=== PATIENT | female | born 1950 | race Caucasian/White ===

== ENCOUNTER 2018-05-17 07:28 | Day surgery (SDC) | payer MEDICARE, BC ==
[2018-05-17] VITALS (8 sets, daily range): BP systolic 119–132; BP diastolic 70–84
[~2018-05-17] VITALS: Ht 162.6 cm; Wt 96.8 kg
[2018-05-17] MEDS ORDERED: diphenhydrAMINE 25mg capsule PO PRN (07:50)
[2018-05-17] MEDS ORDERED: sod bicarbonate 150mEq in D5W 1,150 ML IV ONE (07:50)
[2018-05-17] MEDS ORDERED: normal saline 1000ml 1,000 ML IV SCH (08:10)
[2018-05-17] MEDS ORDERED: LEVO125T PO (08:16)
[2018-05-17] MEDS ORDERED: VILA40TA PO (08:16)
[2018-05-17] MEDS ORDERED: BUDE10.2 INH (08:16)
[2018-05-17] MEDS ORDERED: CARV3.12 PO (08:16)
[2018-05-17] MEDS ORDERED: BUPR150T8 PO (08:16)
[2018-05-17] MEDS ORDERED: ALB0.5UD IH (08:16)
[2018-05-17] MEDS ORDERED: LIOT5TAB7 PO (08:16)
[2018-05-17] MEDS ORDERED: ARIP5TAB4 PO (08:16)
[2018-05-17] MEDS ORDERED: CLON-528 PO (08:16)
[2018-05-17] MEDS ORDERED: BENZ0.5T4 PO (08:16)
[2018-05-17] MEDS ORDERED: CLOB15CR4 TOP (08:16)
[2018-05-17] MEDS ORDERED: O2 NASALCANN (08:16)
[2018-05-17 08:26] LABS: ALBUMIN 3.3 G/DL (3.4-5.0); ANION GAP 8 (8-16); BLOOD UREA NITROGEN 17 MG/DL (7-18); BUN/CREATININE RATIO 14.7 (6.6-38.0); CALCIUM 9.3 MG/DL (8.5-10.1); CHLORIDE 105 MMOL/L (99-107); CREATININE 1.16 MG/DL (0.40-0.90); GLUCOSE 100 MG/DL (70-104); MAGNESIUM 1.9 MG/DL (1.5-2.4); POTASSIUM 4.1 MMOL/L (3.5-5.1); SODIUM 141 MMOL/L (135-145); TOTAL CARBON DIOXIDE 27.7 MMOL/L (24-32); eGFR 47 ML/MIN
[2018-05-17 08:36] LABS: BASOPHILS % (AUTO) 0.1 % (0-1); EOSINOPHILS # (AUTO) 0.1 X10'3 (0-0.9); HEMATOCRIT 44.5 % (35.0-45.0); HEMOGLOBIN 14.9 g/dl (12.0-16.0); LYMPHOCYTES # (AUTO) 0.4 X10'3 (1.1-4.8); LYMPHOCYTES % (AUTO) 9.1 % (21-51); MEAN CORPUSCULAR HGB CONC 33.5 % (33.0-36.5); MEAN CORPUSCULAR VOLUME 86.4 FL (78-98); MEAN PLATELET VOLUME 8.8 FL (7.4-10.4); MONOCYTES # (AUTO) 0.3 X10'3 (0-0.9); MONOCYTES % (AUTO) 6.9 % (2-12); NEUTROPHILS # (AUTO) 3.9 X10'3 (1.8-7.7); NEUTROPHILS % (AUTO) 80.9 % (42-75); PLATELET COUNT 147 X10'3 (140-440); RED BLOOD COUNT 5.15 X10'6 (4.20-5.60); WHITE BLOOD COUNT 4.9 X10'3 (4.5-11.0)
[2018-05-17 08:54] LABS: PROTHROMBIN TIME 10.4 SECONDS (9.0-12.0)
[2018-05-17] MEDS ORDERED: fentaNYL/PF 50MCG/1 ML 2ML syringe ONE (08:56)
[2018-05-17] MEDS ORDERED: cefazolin/dext.iso 2gm/50ml 50 ML IV ONE ×2 (08:56→09:32)
[2018-05-17] MEDS ORDERED: midazolam 2 mg/2 ml injection ONE ×2 (08:56→09:48)
[2018-05-17] MEDS ORDERED: lidocaine 1%/epinephrine 1:100,000 injection 50ml vial ONE (08:56)
[2018-05-17] MEDS ORDERED: vancomycin 1,000mg inj ONE (08:56)
[2018-05-17] MEDS ORDERED: clindamycin 600mg/D5W 50ml 50 ML IV ONE (09:00)
[2018-05-17] MEDS ORDERED: clindamycin-Cleocin 900mg/D5W 50 ML IV ONE (09:10)
== END 2018-05-17 13:00 | disposition home or self-care (01) ==
LOC: SSTAY O 07:28
PROVIDERS: ATTEND Internal Medicine Cardiovascular Disease
DX: I97.190 Other postprocedural cardiac functional disturbances following cardiac surgery (principal); I44.7 Left bundle-branch block, unspecified; Y83.9 Surgical procedure, unspecified as the cause of abnormal reaction of the patient, or of later complication, without mention of misadventure at the time of the procedure; Y82.9 Unspecified medical devices associated with adverse incidents; I42.9 Cardiomyopathy, unspecified; J42 Unspecified chronic bronchitis; F32.9 Major depressive disorder, single episode, unspecified; E03.9 Hypothyroidism, unspecified; F41.9 Anxiety disorder, unspecified; Z79.899 Other long term (current) drug therapy; Z95.0 Presence of cardiac pacemaker; Z98.890 Other specified postprocedural states
CPT/HCPCS: 33222; 36415; 80048; 83735; 85025; 85610; 99152; 99153; J0690; J2250; J3010; J3370; J3490; A4620; J7030

== ENCOUNTER 2018-12-09 09:25 | Emergency (ER) | payer MEDICARE, BC ==
[~2018-12-09] VITALS: Ht 162.6 cm; Wt 84.0 kg
[~2018-12-09 09:25] MED LIST: ALB0.5UD IH; ARIP5TAB4 PO; BENZ0.5T4 PO; BUDE10.2 INH; BUPR150T8 PO; CARV3.12 PO; CLOB15CR4 TOP; CLON-528 PO; LEVO125T PO; LIOT5TAB10 PO; O2 NASALCANN; VILA40TA PO
[2018-12-09 10:32] LABS: BASOPHILS % (AUTO) 0.5 % (0-1); EOSINOPHILS % (AUTO) 0.6 % (0-6); HEMATOCRIT 44.2 % (35.0-45.0); HEMOGLOBIN 14.6 g/dl (12.0-16.0); LYMPHOCYTES # (AUTO) 0.4 X10'3 (1.1-4.8); LYMPHOCYTES % (AUTO) 5.5 % (21-51); MEAN CORPUSCULAR HEMOGLOBIN 29.4 PG (27.0-31.0); MEAN CORPUSCULAR VOLUME 88.9 FL (78-98); MONOCYTES # (AUTO) 0.6 X10'3 (0-0.9); MONOCYTES % (AUTO) 8.8 % (2-12); NEUTROPHILS # (AUTO) 6.1 X10'3 (1.8-7.7); NEUTROPHILS % (AUTO) 84.6 % (42-75); PLATELET COUNT 145 X10'3 (140-440); RED BLOOD COUNT 4.97 X10'6 (4.20-5.60); WHITE BLOOD COUNT 7.2 X10'3 (4.5-11.0)
[2018-12-09 11:07] LABS: ALANINE AMINOTRANSFERASE 16 U/L (12-78); ALBUMIN 3.2 G/DL (3.4-5.0); ALBUMIN/GLOBULIN RATIO 0.8 (1.1-1.5); ALKALINE PHOSPHATASE 62 IU/L (46-116); ANION GAP 9 (8-16); ASPARTATE AMINO TRANSFERASE 13 U/L (10-37); BLOOD UREA NITROGEN 10 MG/DL (7-18); BUN/CREATININE RATIO 10.6 (6.6-38.0); CALCIUM 9.7 MG/DL (8.5-10.1); CHLORIDE 106 MMOL/L (99-107); CREATININE 0.94 MG/DL (0.40-0.90); GLUCOSE 119 MG/DL (70-104); POTASSIUM 3.9 MMOL/L (3.5-5.1); SODIUM 140 MMOL/L (135-145); TOTAL CARBON DIOXIDE 25.5 MMOL/L (24-32); TOTAL PROTEIN 7.1 G/DL (6.4-8.2); eGFR 59 ML/MIN
[2018-12-09 11:16] LABS: MAGNESIUM 1.8 MG/DL (1.5-2.4)
[2018-12-09 11:23] LABS: D-DIMER 0.24 MG/L FEU (0-0.50)
[2018-12-09 11:36] LABS: PARTIAL THROMBOPLASTIN TIME 33 SECONDS (22-32)
[2018-12-09] MEDS ORDERED: furosemide 10 MG/1 ML 10ml inj IV ONE (12:10)
--- NOTE | 2018-12-09 13:26 | NUR ---
relieving RN for lunch, pt is on commode, family at bedside
[2018-12-09] MEDS ORDERED: BUSP5TAB3 PO (13:33)
[2018-12-09] MEDS ORDERED: APIX5TAB3 PO (13:33)
[2018-12-09] MEDS ORDERED: BUPR75TA96 PO (13:40)
[2018-12-09] MEDS ORDERED: BUSP10TA11 PO (13:40)
[2018-12-09] MEDS ORDERED: CLOB50SO2 TOP (13:40)
[2018-12-09] MEDS ORDERED: FURO40TA4 PO (13:41)
[2018-12-09 13:57] VITALS: BP 138/75
== END 2018-12-09 14:00 | disposition home or self-care (01) ==
LOC: ER 09:26
DX: I50.9 Heart failure, unspecified (principal); F41.9 Anxiety disorder, unspecified; F32.9 Major depressive disorder, single episode, unspecified; D86.9 Sarcoidosis, unspecified; Z88.0 Allergy status to penicillin; Z79.899 Other long term (current) drug therapy
CPT/HCPCS: 36415; 71045; 80053; 83735; 83880; 84484; 85025; 85379; 85610; 85730; 93005; 96374; 99284; J1940

== ENCOUNTER 2018-12-13 07:40 | Day surgery (SDC) | payer MEDICARE, BC ==
[~2018-12-13] VITALS: Ht 162.6 cm; Wt 89.5 kg
[2018-12-13] VITALS (11 sets, daily range): BP systolic 96–114; BP diastolic 58–74
[~2018-12-13 07:40] MED LIST changes: +APIX5TAB3 PO; -BUPR150T8 PO; +BUPR75TA96 PO; +BUSP10TA11 PO; -CLOB15CR4 TOP; +CLOB50SO2 TOP; -CLON-528 PO; +FURO40TA4 PO; -O2 NASALCANN
[2018-12-13] MEDS ORDERED: VILA40TA PO (08:33)
[2018-12-13] MEDS ORDERED: BUPR150T8 PO (08:36)
[2018-12-13] MEDS ORDERED: ARIP5TAB4 PO (08:40)
[2018-12-13] MEDS ORDERED: BENZ0.5T4 PO (08:50)
[2018-12-13] MEDS ORDERED: LIOT5TAB10 PO (08:51)
[2018-12-13] MEDS ORDERED: BUDE10.22 INH (09:23)
[2018-12-13] MEDS ORDERED: ALB0.5UD IH (09:23)
[2018-12-13] MEDS ORDERED: CARV3.122 PO (09:24)
[2018-12-13] MEDS ORDERED: LEVO125T8 PO (09:25)
[2018-12-13] MEDS ORDERED: APIX5TAB3 PO (09:26)
--- NOTE | 2018-12-13 09:30 | NUR ---
PT SOB UPON OOB TO BATHROOM, DR FERGUSON AT BEDSIDE ORDERED LASIX TO GIVE, PT STATES WAS IN ER LAST WEEK WITH SEVERE SOB, DIURETICS WERE GIVEN. DR FERGUSON AWARE OF PT'S CONFUSION.
[2018-12-13] MEDS ORDERED: furosemide 20 MG/2 ML vial IV ONE (09:35)
[2018-12-13] MEDS ORDERED: MIDAZolam 5mg/ml 2ml vial IV ONE (09:45)
[2018-12-13] MEDS ORDERED: fentaNYL/PF 50MCG/1 ML 2ML syringe IV ONE (09:45)
--- NOTE | 2018-12-13 10:30 | NUR ---
PT BECAME SOB AND ANXIOUS DURING PIV START, BECAME AGGITATED AND SEEMED UNCLEAR AND SPEECH BECAME UNCLEAR. WORDS WERE JUMBLED, SPOUSE THINKS IT WAS HER ANXIETY/DEPRESSION.
--- NOTE | 2018-12-13 13:00 | NUR ---
PT AFTER CARDIOVERSION IS ALERT AND ORIENTED, SPEECH CLEAR AND APPROPRIATE ANSWERS TO QUESTIONS, DENIED SOB, 02 SATURATION STABLE
== END 2018-12-13 13:00 | disposition home or self-care (01) ==
LOC: MERGE 07:40 → SSTAY O 07:40
PROVIDERS: ATTEND Internal Medicine Cardiovascular Disease
DX: I48.92 Unspecified atrial flutter (principal); F32.9 Major depressive disorder, single episode, unspecified; E03.9 Hypothyroidism, unspecified; F41.9 Anxiety disorder, unspecified; Z98.890 Other specified postprocedural states; Z88.0 Allergy status to penicillin; Z79.899 Other long term (current) drug therapy; Z95.0 Presence of cardiac pacemaker; Z83.3 Family history of diabetes mellitus
CPT/HCPCS: 92960; 93005; J1940; J2250; J3010

== ENCOUNTER 2019-01-11 09:05 | Inpatient (IN) | payer MEDICARE, BC ==
[~2019-01-11] VITALS: Ht 162.6 cm; Wt 90.9 kg
[~2019-01-11 09:05] MED LIST changes: +BUDE10.22 INH; +BUPR150T8 PO; +CARV3.122 PO; +LEVO125T8 PO
[2019-01-11] MEDS ORDERED: furosemide 40mg/4ml inj IV ONE (09:15)
[2019-01-11 09:36] LABS: BASOPHILS % (AUTO) 0.4 % (0-1); EOSINOPHILS # (AUTO) 0.1 X10'3 (0-0.9); EOSINOPHILS % (AUTO) 1.6 % (0-6); HEMATOCRIT 43.8 % (35.0-45.0); HEMOGLOBIN 14.5 g/dl (12.0-16.0); LYMPHOCYTES # (AUTO) 0.4 X10'3 (1.1-4.8); LYMPHOCYTES % (AUTO) 4.5 % (21-51); MEAN CORPUSCULAR HEMOGLOBIN 29.2 PG (27.0-31.0); MEAN CORPUSCULAR HGB CONC 33.2 g/dL (33.0-36.5); MEAN PLATELET VOLUME 8.5 FL (7.4-10.4); MONOCYTES # (AUTO) 0.4 X10'3 (0-0.9); MONOCYTES % (AUTO) 4.7 % (2-12); NEUTROPHILS # (AUTO) 7.6 X10'3 (1.8-7.7); NEUTROPHILS % (AUTO) 88.8 % (42-75); PLATELET COUNT 168 X10'3 (140-440); RED BLOOD COUNT 4.97 X10'6 (4.20-5.60); WHITE BLOOD COUNT 8.5 X10'3 (4.5-11.0)
[2019-01-11 09:52] LABS: PARTIAL THROMBOPLASTIN TIME 30 SECONDS (22-32)
--- NOTE | 2019-01-11 09:52 | NUR ---
Pt up to bedside commode.
[2019-01-11 09:55] LABS: ALANINE AMINOTRANSFERASE 18 U/L (12-78); ALBUMIN 3.2 G/DL (3.4-5.0); ALBUMIN/GLOBULIN RATIO 0.7 (1.1-1.5); ALKALINE PHOSPHATASE 64 IU/L (46-116); ANION GAP 11 (8-16); ASPARTATE AMINO TRANSFERASE 20 U/L (10-37); BILIRUBIN,TOTAL 0.8 MG/DL (0.1-1.0); BLOOD UREA NITROGEN 13 MG/DL (7-18); BUN/CREATININE RATIO 13.1 (6.6-38.0); CALCIUM 9.2 MG/DL (8.5-10.1); CHLORIDE 104 MMOL/L (99-107); CREATININE 0.99 MG/DL (0.40-0.90); GLUCOSE 125 MG/DL (70-104); SODIUM 141 MMOL/L (135-145); TOTAL PROTEIN 7.5 G/DL (6.4-8.2); eGFR 56 ML/MIN
--- NOTE | 2019-01-11 09:56 | NUR ---
Pt placed back in bed, boosted, HOB up.
[2019-01-11] MEDS ORDERED: ALBU90AE INH (11:17)
[2019-01-11] MEDS ORDERED: FLEC100T2 PO (11:17)
[2019-01-11 12:26] LABS: D-DIMER 0.57 MG/L FEU (0-0.50)
[2019-01-11] MEDS: K and/or MAG REPLACEMENT MC SCH (12:30)
[2019-01-11] MEDS ORDERED: morphine 2 MG/ML inj. syringe IV PRN ×2 (12:30)
[2019-01-11] MEDS ORDERED: HYDROcodone/acetaminophen 5mg/325mg tablet PO PRN (12:30)
[2019-01-11] MEDS ORDERED: ALBUTEROL SULFATE INH PRN (12:30)
[2019-01-11] MEDS ORDERED: diphenhydrAMINE 25mg capsule PO PRN (12:30)
[2019-01-11] MEDS ORDERED: bisacodyl 10mg suppository rectal RC PRN (12:30)
[2019-01-11] MEDS ORDERED: HYDROcodone/acetaminophen 10/325mg tab PO PRN (12:30)
[2019-01-11] MEDS ORDERED: potassium Cl 20 mEq SR tablet PO PRN ×2 (12:30)
[2019-01-11] MEDS: furosemide 40mg/4ml inj IV SCH ×2 (12:30→20:06)
[2019-01-11] MEDS ORDERED: magnesium 2GM in 50ml NS 50 ML IV PRN (12:30)
[2019-01-11] MEDS ORDERED: magnesium 4gm in 100ml NS 100 ML IV PRN (12:30)
[2019-01-11] MEDS ORDERED: magnesium hydroxide 30ml (MOM) UD suspension PO PRN (12:30)
[2019-01-11] MEDS ORDERED: mag hydrox/Alum hydrox/simeth 30ml oral suspension PO PRN (12:30)
[2019-01-11] MEDS ORDERED: magnesium Cl slow-release 64mg tablet PO PRN (12:30)
[2019-01-11] MEDS ORDERED: acetaminophen 650mg rectal suppository RC PRN (12:30)
[2019-01-11] MEDS ORDERED: ondansetron/PF 4mg/2ml inj IV PRN (12:30)
[2019-01-11] MEDS ORDERED: acetaminophen 325mg tablet PO PRN ×2 (12:30)
[2019-01-11] MEDS ORDERED: potassium CL 10mEq/100ml bag 100 ML IV PRN ×2 (12:30)
[2019-01-11] MEDS ORDERED: normal saline 1000ml 1,000 ML IV SCH (12:30)
[2019-01-11] MEDS ORDERED: iohexol 350MG/ML 100ml bottle IV ONE (12:38)
[2019-01-11] MEDS ORDERED: albuterol 2.5 MG/3 ML nebule NEB PRN (12:45)
[2019-01-11] MEDS ORDERED: BUSPIRONE HCL PO SCH (13:00)
--- NOTE | 2019-01-11 13:10 | NUR ---
called pharmacy spoke to Vicente,instructed RN to skip 1230 lasix dose since med was given 3 hours ago.
--- NOTE | 2019-01-11 13:16 | NUR ---
BREAK NOTE:PATIENT BACK FROM CT.
[2019-01-11] MEDS: levoFLOXACIN-Levaquin 750MG/D5 150 ML IV SCH (13:21)
[2019-01-11 13:40] LABS: CLARITY,URINE CLEAR (Clear); COLOR,URINE YELLOW (Yellow); GLUCOSE, URINE NEGATIVE (Neg); KETONES,URINE NEGATIVE (Neg); LEUKOCYTE ESTERASE ,URINE SMALL (Neg); NITRITES, URINE NEGATIVE (Neg); OCCULT BLOOD,URINE NEGATIVE (Neg); PH,URINE 5.5 (4.8-8.0); PROTEIN,URINE NEGATIVE (Neg); UROBILINOGEN,URINE 0.2 E.U/dL (0.2-1.0)
[2019-01-11 13:45] LABS: UA COLLECTION TYPE CLN CATCH MIDSTREAM
[2019-01-11 13:46] LABS: BACTERIA,URINE NONE SEEN /HPF (Neg); MUCUS STRANDS NONE SEEN /LPF (Neg); RBC,URINE NONE SEEN /HPF (0-2); SQUAMOUS EPITHELIAL CELL,UR FEW /LPF (FEW); WBC,URINE 0-4 /HPF (0-4)
--- NOTE | 2019-01-11 14:00 | NUR ---
Patient in room MED 309. I have received report from DAYNE Gale and had the opportunity to ask questions and assume patient care.
[2019-01-11 14:13] LABS: HEMOGLOBIN A1C 5.2 % (4.5-6.2)
[2019-01-11 14:30] VITALS: BP 143/81
[2019-01-11] MEDS: busPIRone 5mg tablet PO SCH ×2 (14:36→20:06)
[2019-01-11] MEDS: ipratropium/albuterol 3ml nebule NEB SCH ×3 (14:41→22:36)
[2019-01-11] MEDS: albuterol 2.5 MG/3 ML nebule NEB SCH ×2 (14:41→21:00)
[2019-01-11] MEDS ORDERED: methylPREDNISolone sod succ 125mg/2ml vial IV ONE (16:25)
--- NOTE | 2019-01-11 18:03 | NUR ---
Problems reprioritized. Patient report given, questions answered & plan of care reviewed with Tracy OSCAR.
[2019-01-11 18:32] VITALS: BP 128/79
--- NOTE | 2019-01-11 19:30 | NUR ---
ABG ORDERED IN ED. PAGED RT TO GET THAT COMPLETED.
[2019-01-11] MEDS ORDERED: non-formulary drug (Budesonide/Formoterol Fumarate (Symbicort 160-4.5 Mcg Inhaler) 2 PUFFS INH SCH (20:00)
[2019-01-11] MEDS ORDERED: benztropine 1mg tablet PO SCH (20:00)
[2019-01-11] MEDS ORDERED: non-formulary drug (Clobetasol Propionate 1 APPLIC) TOP SCH (20:00)
[2019-01-11] MEDS: CLOBETASOL PROPIONATE TP SCH (20:00)
[2019-01-11] MEDS ORDERED: non-formulary drug (Flecainide Acetate 1 TAB) PO SCH (20:00)
[2019-01-11] MEDS ORDERED: BENZTROPINE MESYLATE PO SCH (20:00)
[2019-01-11] MEDS: lactobacillus rhamnosus 10,000 MMU CELLS/CAPSULE PO SCH ×2 (20:00→20:08)
[2019-01-11] MEDS ORDERED: clobetasol 0.05% cream 30gm TP SCH (20:00)
[2019-01-11] MEDS: carVEDilol 3.125mg tablet PO SCH (20:06)
[2019-01-11] MEDS: buPROPion 75mg tablet PO SCH (20:06)
[2019-01-11] MEDS: apixaban 5mg tablet PO SCH (20:06)
[2019-01-11] MEDS: flecainide 50mg tablet PO SCH (20:07)
[2019-01-11] MEDS ORDERED: temazepam 15mg capsule PO PRN (21:00)
--- NOTE | 2019-01-11 21:31 | NUR ---
PAGED RT REGARDING ABG. AWAITING CALL BACK.
[2019-01-11 22:00] VITALS: BP 130/70
[2019-01-11] MEDS: budesonide 0.5mg/2ml UD nebule IH SCH (22:35)
--- NOTE | 2019-01-11 22:45 | NUR ---
Dr. Haines Notified r/t crackles right lower lobe, SOB at rest, respiration 30 bpm noted. Clarified IV fluids and lab orders. NS @50 mls and 0930 ABG order. new orders noted. Discontinue IV fluid NS, and ok to complete 0930 ABG. respiratory therapist notified r/t pending ABG. will continue to monitor for SOB, respiration.
[2019-01-11] MEDS: methylPREDNISolone sod succ 125mg/2ml vial IV SCH (23:02)
[2019-01-11 23:25] LABS: ABG HCO3 28.9 mmol/L (22.0-26.0); ABG OXYGEN SATURATION 93.4 % (95-98); ABG PCO2 (T) 39.3 mmHg (35.0-45.0); ABG PH (T) 7.483 (7.350-7.450); ABG PO2 (T) 58.9 mmHg (83-108); ALLEN'S TEST Positive; FCOHb 0.3 % (0.5-1.5); FLOW 2 L/min; FMetHb 0.2 % (0.3-1.12); FO2Hb 92.9 % (94-100); PATIENT TEMPERATURE 36.5; TOTAL HEMOGLOBIN 15.1 G/dl (12.0-16.0)
[2019-01-12] MEDS: ipratropium/albuterol 3ml nebule NEB SCH ×6 (02:26→22:17)
[2019-01-12] MEDS: albuterol 2.5 MG/3 ML nebule NEB SCH ×2 (02:31→08:25)
--- NOTE | 2019-01-12 04:39 | NUR ---
Orientee documentation: I have reviewed and agree with all interventions, assessments performed and documented by Tracy OSCAR
[2019-01-12] MEDS: methylPREDNISolone sod succ 125mg/2ml vial IV SCH ×4 (04:51→20:08)
[2019-01-12 05:10] LABS: BASOPHILS % (AUTO) 0 % (0-1); EOSINOPHILS % (AUTO) 0 % (0-6); HEMATOCRIT 42.7 % (35.0-45.0); HEMOGLOBIN 14.4 g/dl (12.0-16.0); LYMPHOCYTES # (AUTO) 0.2 X10'3 (1.1-4.8); LYMPHOCYTES % (AUTO) 5.1 % (21-51); MEAN CORPUSCULAR HEMOGLOBIN 29.4 PG (27.0-31.0); MEAN CORPUSCULAR HGB CONC 33.7 g/dL (33.0-36.5); MEAN CORPUSCULAR VOLUME 87.2 FL (78-98); MEAN PLATELET VOLUME 8.7 FL (7.4-10.4); MONOCYTES # (AUTO) 0.1 X10'3 (0-0.9); MONOCYTES % (AUTO) 1.9 % (2-12); NEUTROPHILS # (AUTO) 3.2 X10'3 (1.8-7.7); PLATELET COUNT 151 X10'3 (140-440); RED BLOOD COUNT 4.89 X10'6 (4.20-5.60); RED CELL DISTRIBUTION WIDTH 13.7 % (11.5-14.5); WHITE BLOOD COUNT 3.4 X10'3 (4.5-11.0)
--- NOTE | 2019-01-12 05:37 | NUR ---
pt diuresis removed 1.8L, pt weaned to 2L/ nc. ABG completed. Incentive spirometer x6/hr while awake.
[2019-01-12 05:39] LABS: ALANINE AMINOTRANSFERASE 17 U/L (12-78); ALBUMIN 3.1 G/DL (3.4-5.0); ALBUMIN/GLOBULIN RATIO 0.7 (1.1-1.5); ALKALINE PHOSPHATASE 66 IU/L (46-116); ANION GAP 11 (8-16); ASPARTATE AMINO TRANSFERASE 13 U/L (10-37); BILIRUBIN,TOTAL 0.6 MG/DL (0.1-1.0); BLOOD UREA NITROGEN 15 MG/DL (7-18); CALCIUM 9.5 MG/DL (8.5-10.1); CHLORIDE 102 MMOL/L (99-107); CHOL/HDL RATIO 3.4 (0.00-4.99); CHOLESTEROL 190 MG/DL (0-200); GLUCOSE 151 MG/DL (70-104); HDL CHOLESTEROL 56 MG/DL (35-60); LDL CHOLESTEROL 127 MG/DL (50-100); PHOSPHORUS 2.8 MG/DL (2.3-4.5); POTASSIUM 3.6 MMOL/L (3.5-5.1); SODIUM 140 MMOL/L (135-145); TOTAL CARBON DIOXIDE 27.2 MMOL/L (24-32); TOTAL PROTEIN 7.4 G/DL (6.4-8.2); TRIGLYCERIDES 53 MG/DL (20-135); eGFR 55 ML/MIN
--- NOTE | 2019-01-12 06:10 | NUR ---
Patient in room MED 309. I have received report from DAYNE Sheehan and DAYNE Jeffers and had the opportunity to ask questions and assume patient care.
[2019-01-12] MEDS: budesonide 0.5mg/2ml UD nebule IH SCH ×2 (06:49→18:44)
[2019-01-12 07:00] VITALS: BP 126/68
[2019-01-12] MEDS: CLOBETASOL PROPIONATE TP SCH ×2 (08:00→20:00)
[2019-01-12] MEDS ORDERED: VILAZODONE HYDROCHLORIDE PO SCH (08:00)
[2019-01-12] MEDS: K and/or MAG REPLACEMENT MC SCH (08:00)
[2019-01-12] MEDS: furosemide 40mg/4ml inj IV SCH ×2 (08:28→20:08)
[2019-01-12] MEDS: benztropine 1mg tablet PO SCH ×2 (08:33→20:09)
[2019-01-12] MEDS: aripiprazole 5mg tablet PO SCH (08:33)
[2019-01-12] MEDS: levoTHYROXINE 125mcg tablet PO SCH (08:34)
[2019-01-12] MEDS: busPIRone 5mg tablet PO SCH ×3 (08:34→20:10)
[2019-01-12] MEDS: apixaban 5mg tablet PO SCH ×2 (08:34→20:09)
[2019-01-12] MEDS: carVEDilol 3.125mg tablet PO SCH ×2 (08:34→20:09)
[2019-01-12] MEDS: lactobacillus rhamnosus 10,000 MMU CELLS/CAPSULE PO SCH (08:35)
[2019-01-12] MEDS: buPROPion 75mg tablet PO SCH ×2 (08:36→20:10)
[2019-01-12] MEDS: flecainide 50mg tablet PO SCH ×2 (08:37→20:09)
[2019-01-12] MEDS: levoFLOXACIN-Levaquin 750MG/D5 150 ML IV SCH (08:38)
--- NOTE | 2019-01-12 08:40 | NUR ---
Patient reported feeling "itchy" on bilateral hands. Assessment performed, patient had developed a rash on bilateral hands, chest and partially on face. Benadryl 25mg PRN administered. Medication list reconciled with patient and spouse. Probiotic is the only oral medication that is new to patient. Held medication and notified pharmacy. Addendum: 01/12/19 at 1159 by Anju Luis RN No s/s of distress.
[2019-01-12] MEDS: liothyronine sod 5mcg tablet PO SCH (09:15)
--- NOTE | 2019-01-12 09:53 | NUR ---
Patient's rash is gone. Will continue to monitor.
[2019-01-12] MEDS ORDERED: pneumococcal 23-VAL P-sac vacc 25 mcg/0.5ml vial IMVAC ONE (10:00)
[2019-01-12 10:20] VITALS: BP 126/68
--- NOTE | 2019-01-12 10:32 | NUR ---
Malnutrition consult: Pt admit w/ COPD/CHF exacerbations, UTI, possible aspiration PNA, and CT shows liver cirrhosis per MD note. PT has no weakness, no significant edema, PO 50-75% first meals and does not meet malnutrition criteria at this time. SP BSS pending. Will continue to monitor. Addendum: 01/12/19 at [address] Amended: Links added.
[2019-01-12 11:00] VITALS: BP 130/81
--- NOTE | 2019-01-12 14:14 | NUR ---
Spoke with TIANNA Ruiz regarding patients request for discharge for tomorrow with home health: PT/OT/Nursing.
[2019-01-12 15:00] VITALS: BP 151/80
--- NOTE | 2019-01-12 15:18 | NUR ---
Per chelsea Hu to discontinue Routine Proventil Q6H Neb. Respiratory notified.
[2019-01-12 18:00] VITALS: BP 131/82
--- NOTE | 2019-01-12 18:15 | NUR ---
Patient in room MED 309. I have received report from Radha Rene RN and had the opportunity to ask questions and assume patient care.
[2019-01-12 22:00] VITALS: BP 127/84
[2019-01-13 02:00] VITALS: BP 131/82
[2019-01-13] MEDS: methylPREDNISolone sod succ 125mg/2ml vial IV SCH ×2 (02:14→08:20)
--- NOTE | 2019-01-13 02:15 | NUR ---
PATIENT STATED WHEN SHE SAT ON THE COMMODE SHE FELT A PINCH ON HER BACKSIDE. BUTTOCK REDDENED BUT BLANCHABLE. A COUPLE AREAS ON THE BACK OF THE UPPER LEGS AND BUTT THAT HAD SKIN TEARS. FOAM DRESSING APPLIED. WILL CONTINUE TO MONITOR AND ENCOURAGED PATIENT TO TURN FREQUENTLY.
[2019-01-13] MEDS: ipratropium/albuterol 3ml nebule NEB SCH ×3 (02:29→12:25)
[2019-01-13 05:26] LABS: BASOPHILS % (AUTO) 0.1 % (0-1); EOSINOPHILS % (AUTO) 0 % (0-6); HEMOGLOBIN 14.2 g/dl (12.0-16.0); LYMPHOCYTES # (AUTO) 0.2 X10'3 (1.1-4.8); LYMPHOCYTES % (AUTO) 3.2 % (21-51); MEAN CORPUSCULAR HEMOGLOBIN 29.6 PG (27.0-31.0); MEAN CORPUSCULAR HGB CONC 33.8 g/dL (33.0-36.5); MEAN CORPUSCULAR VOLUME 87.6 FL (78-98); MEAN PLATELET VOLUME 8.9 FL (7.4-10.4); MONOCYTES # (AUTO) 0.3 X10'3 (0-0.9); NEUTROPHILS # (AUTO) 5.9 X10'3 (1.8-7.7); NEUTROPHILS % (AUTO) 92.7 % (42-75); PLATELET COUNT 166 X10'3 (140-440); RED BLOOD COUNT 4.79 X10'6 (4.20-5.60); RED CELL DISTRIBUTION WIDTH 14.1 % (11.5-14.5); WHITE BLOOD COUNT 6.4 X10'3 (4.5-11.0)
[2019-01-13 05:37] LABS: ALANINE AMINOTRANSFERASE 16 U/L (12-78); ALBUMIN 3.1 G/DL (3.4-5.0); ALBUMIN/GLOBULIN RATIO 0.8 (1.1-1.5); ALKALINE PHOSPHATASE 56 IU/L (46-116); ANION GAP 10 (8-16); ASPARTATE AMINO TRANSFERASE 19 U/L (10-37); BILIRUBIN,TOTAL 0.6 MG/DL (0.1-1.0); BLOOD UREA NITROGEN 23 MG/DL (7-18); BUN/CREATININE RATIO 18.3 (6.6-38.0); CALCIUM 9.4 MG/DL (8.5-10.1); CHLORIDE 101 MMOL/L (99-107); CREATININE 1.26 MG/DL (0.40-0.90); GLUCOSE 146 MG/DL (70-104); PHOSPHORUS 3.5 MG/DL (2.3-4.5); POTASSIUM 3.5 MMOL/L (3.5-5.1); SODIUM 140 MMOL/L (135-145); TOTAL CARBON DIOXIDE 29.2 MMOL/L (24-32); TOTAL PROTEIN 7.1 G/DL (6.4-8.2); eGFR 42 ML/MIN
[2019-01-13 06:00] VITALS: BP 130/80
--- NOTE | 2019-01-13 06:14 | NUR ---
Problems reprioritized. Patient report given, questions answered & plan of care reviewed with DAYNE Moya.
--- NOTE | 2019-01-13 06:25 | NUR ---
Patient in room MED 309. I have received report from DAYNE Prince and had the opportunity to ask questions and assume patient care.
[2019-01-13] MEDS: K and/or MAG REPLACEMENT MC SCH (08:00)
[2019-01-13] MEDS: CLOBETASOL PROPIONATE TP SCH (08:00)
[2019-01-13] MEDS ORDERED: atorvastatin 20mg tablet PO SCH (08:00)
[2019-01-13] MEDS: furosemide 40mg/4ml inj IV SCH (08:20)
[2019-01-13] MEDS: benztropine 1mg tablet PO SCH (08:21)
[2019-01-13] MEDS: levoTHYROXINE 125mcg tablet PO SCH (08:25)
[2019-01-13] MEDS: carVEDilol 3.125mg tablet PO SCH (08:25)
[2019-01-13] MEDS: aripiprazole 5mg tablet PO SCH (08:25)
[2019-01-13] MEDS: buPROPion 75mg tablet PO SCH (08:25)
[2019-01-13] MEDS: apixaban 5mg tablet PO SCH (08:25)
[2019-01-13] MEDS: busPIRone 5mg tablet PO SCH (08:25)
[2019-01-13] MEDS: liothyronine sod 5mcg tablet PO SCH (08:26)
[2019-01-13] MEDS: flecainide 50mg tablet PO SCH (08:26)
[2019-01-13] MEDS: levoFLOXACIN-Levaquin 750MG/D5 150 ML IV SCH (08:28)
[2019-01-13] MEDS: budesonide 0.5mg/2ml UD nebule IH SCH (08:43)
[2019-01-13 11:00] VITALS: BP 125/80
[2019-01-13] MEDS ORDERED: FURO-150 PO (11:33)
[2019-01-13] MEDS ORDERED: ATOR20TA66 PO (11:33)
[2019-01-13] MEDS ORDERED: POTA10TA36 PO (11:33)
[2019-01-13] MEDS ORDERED: PRED10TA23 PO (11:33)
[2019-01-13] MEDS ORDERED: LEVO500T89 PO (11:33)
--- NOTE | 2019-01-13 12:57 | NUR ---
Medications called into [facility] in [place].
--- NOTE | 2019-01-13 13:12 | NUR ---
pt. discharged from facility at 1310. pt. was wheeled down by staff to private vehicle. pt. picked her up. all paperwork was explained, understood and signed. pt. IV was d/c intact. meds were called into [facility] in [place]. pt. left with all belonging. Addendum: 01/13/19 at 1317 by Darline Cheatham RN wound photos were taken on 01/12/19 at 1900. no new photos taken on discharge.
--- NOTE | 2019-01-13 13:24 | NUR ---
Orienteer documentation: I have reviewed and agree with all interventions, assessments performed and documented by Darline OSCAR.
--- NOTE | 2019-01-13 15:55 | NUR ---
WOC saw pt around 1130 and examined redness noted around sacrum. Area is blanchable bright red in color, most likely from moisture damage more so than pressure. Applied calazime cream and covered with optifoam.
[2019-01-14 11:10] LABS: HBSAG SCREEN Negative (Negative); HEPATITIS C ANTIBODY <0.1 s/co ratio (0.0-0.9)
== END 2019-01-13 13:10 | disposition home health service (06) | DRG 189 ==
LOC: ER 09:06 → MED 3N 14:07
PROVIDERS: ADMIT Family Medicine; ATTEND Family Medicine
PROC: B32T1ZZ Computerized Tomography (CT Scan) of Left Pulmonary Artery using Low Osmolar Contrast (ICD-10-PCS; principal; 2019-01-11)
PROC: B3201ZZ Computerized Tomography (CT Scan) of Thoracic Aorta using Low Osmolar Contrast (ICD-10-PCS; 2019-01-11)
PROC: B32S1ZZ Computerized Tomography (CT Scan) of Right Pulmonary Artery using Low Osmolar Contrast (ICD-10-PCS; 2019-01-11)
DX: J96.01 Acute respiratory failure with hypoxia (principal); I50.33 Acute on chronic diastolic (congestive) heart failure; J69.0 Pneumonitis due to inhalation of food and vomit; N39.0 Urinary tract infection, site not specified; J44.1 Chronic obstructive pulmonary disease with (acute) exacerbation; E03.9 Hypothyroidism, unspecified; I27.81 Cor pulmonale (chronic); I48.91 Unspecified atrial fibrillation; I73.00 Raynaud's syndrome without gangrene; K74.60 Unspecified cirrhosis of liver; I50.810 Right heart failure, unspecified; F32.9 Major depressive disorder, single episode, unspecified; F41.9 Anxiety disorder, unspecified; R91.1 Solitary pulmonary nodule; Z88.0 Allergy status to penicillin; Z88.8 Allergy status to other drugs, medicaments and biological substances; Z91.018 Allergy to other foods; Z79.899 Other long term (current) drug therapy; Z79.890 Hormone replacement therapy; Z79.01 Long term (current) use of anticoagulants; Z95.0 Presence of cardiac pacemaker; Z99.81 Dependence on supplemental oxygen
CPT/HCPCS: 36415; 36600; 71045; 71275; 76700; 80053; 80061; 81001; 82803; 83036; 83735; 83880; 84100; 84443; 84484; 85018; 85025; 85379; 85610; 85730; 86706; 86803; 87081; 87088; 87340; 92508; 92616; 93005; 93306; 94640; 94760; 96361; 96374; 97162; 99285; G0378; J1940; J1956; J2930; J7030; J7626; Q0163; Q9967

== ENCOUNTER 2019-07-19 18:54 | Inpatient (IN) | payer MEDICARE, BC ==
[~2019-07-19] VITALS: Ht 160 cm; Wt 90.0 kg
[~2019-07-19 18:54] MED LIST changes: -ALB0.5UD IH; +ALBU90AE INH; +ARIP5TAB14 PO; -ARIP5TAB4 PO; +ATOR20TA66 PO; -BUDE10.22 INH; -BUPR150T8 PO; -CARV3.12 PO; +FLEC100T2 PO; -FURO40TA4 PO; -LEVO125T PO; +POTA10TA36 PO; +etomidate 2mg/ml inj. ONE; +rocuronium bromide 100mg/10ml (10mg/ml) injection IV ONE
[2019-07-19] MEDS ORDERED: methylPREDNISolone sod succ 125mg/2ml vial IV ONE (19:00)
[2019-07-19] MEDS ORDERED: furosemide 10 MG/1 ML 10ml inj IV ONE (19:00)
[2019-07-19] MEDS ORDERED: furosemide 40mg/4ml inj IV ONE (19:00)
[2019-07-19 19:05] LABS: ABG BASE EXCESS -6.1 mmol/L (-2.0-3.0); ABG HCO3 22.4 mmol/L (22.0-26.0); ABG OXYGEN SATURATION 99.1 % (95-98); ABG PCO2 (T) 54.6 mmHg (35.0-45.0); ABG PH (T) 7.226 (7.350-7.450); ABG PO2 (T) 213.6 mmHg (83-108); ALLEN'S TEST POSITIVE; FCOHb 0.4 % (0.5-1.5); FLOW 15 L/min; FMetHb 0.2 % (0.3-1.12); FO2Hb 98.5 % (94-100); PATIENT TEMPERATURE 36.3; TOTAL HEMOGLOBIN 14.7 G/dl (12.0-16.0)
[2019-07-19] MEDS ORDERED: etomidate 2mg/ml inj. IV ONE (19:10)
[2019-07-19] MEDS ORDERED: rocuronium 10mg/ml inj IV ONE (19:10)
--- NOTE | 2019-07-19 19:15 | NUR ---
MD Mascorro at bedside re-evaluating the pt. Verbal order given to prepare for RSI, 20mg etomidate and 80mg rocuronium ordered.
[2019-07-19 19:21] LABS: BASOPHILS # (AUTO) 0.1 X10'3 (0-0.2); BASOPHILS % (AUTO) 0.6 % (0-1); EOSINOPHILS # (AUTO) 0.2 X10'3 (0-0.9); EOSINOPHILS % (AUTO) 1.9 % (0-6); HEMATOCRIT 44.4 % (35.0-45.0); HEMOGLOBIN 14.3 g/dl (12.0-16.0); LYMPHOCYTES # (AUTO) 1.3 X10'3 (1.1-4.8); LYMPHOCYTES % (AUTO) 13.4 % (21-51); MEAN CORPUSCULAR HEMOGLOBIN 27.8 PG (27.0-31.0); MEAN CORPUSCULAR HGB CONC 32.2 g/dL (33.0-36.5); MEAN CORPUSCULAR VOLUME 86.2 FL (78-98); MEAN PLATELET VOLUME 8.4 FL (7.4-10.4); MONOCYTES # (AUTO) 0.6 X10'3 (0-0.9); MONOCYTES % (AUTO) 5.8 % (2-12); NEUTROPHILS # (AUTO) 7.6 X10'3 (1.8-7.7); NEUTROPHILS % (AUTO) 78.3 % (42-75); PLATELET COUNT 210 X10'3 (140-440); RED BLOOD COUNT 5.15 X10'6 (4.20-5.60); RED CELL DISTRIBUTION WIDTH 14.6 % (11.5-14.5); WHITE BLOOD COUNT 9.7 X10'3 (4.5-11.0)
[2019-07-19 19:32] LABS: PARTIAL THROMBOPLASTIN TIME 26 SECONDS (22-32)
[2019-07-19 19:47] LABS: ALANINE AMINOTRANSFERASE 32 U/L (12-78); ALBUMIN 3.4 G/DL (3.4-5.0); ALBUMIN/GLOBULIN RATIO 0.9 (1.1-1.5); ALKALINE PHOSPHATASE 101 IU/L (46-116); ANION GAP 6 (8-16); ASPARTATE AMINO TRANSFERASE 33 U/L (10-37); BILIRUBIN,TOTAL 0.4 MG/DL (0.1-1.0); BLOOD UREA NITROGEN 18 MG/DL (7-18); BUN/CREATININE RATIO 13.8 (6.6-38.0); CALCIUM 9.7 MG/DL (8.5-10.1); CHLORIDE 106 MMOL/L (99-107); GLUCOSE 183 MG/DL (70-104); POTASSIUM 5.3 MMOL/L (3.5-5.1); SODIUM 140 MMOL/L (135-145); TOTAL CARBON DIOXIDE 28.5 MMOL/L (24-32); TOTAL PROTEIN 7.1 G/DL (6.4-8.2); eGFR 41 ML/MIN
[2019-07-19] MEDS ORDERED: MAGN400C PO (19:56)
[2019-07-19] MEDS ORDERED: FURO20TA4 PO (19:56)
[2019-07-19 20:01] LABS: ABG HCO3 23.6 mmol/L (22.0-26.0); ABG OXYGEN SATURATION 98.3 % (95-98); ABG PCO2 (T) 44.4 mmHg (35.0-45.0); ABG PH (T) 7.346 (7.350-7.450); ABG PO2 (T) 125.5 mmHg (83-108); ALLEN'S TEST POSITIVE; FCOHb 0.6 % (0.5-1.5); FMetHb 0.3 % (0.3-1.12); FO2Hb 97.4 % (94-100); PATIENT TEMPERATURE 37.4; PEEP 5 cm H2O; RESPIRATORY RATE 18 b/min; TIDAL VOLUME 450 mL; TOTAL HEMOGLOBIN 14.5 G/dl (12.0-16.0)
[2019-07-19] MEDS: midazolam 100mg in NS 100ml 100 ML IV PRN (20:09)
[2019-07-19] MEDS: FENTANYL-0.9 % NACL/PF 100 ML IV PRN (20:10)
--- NOTE | 2019-07-19 20:15 | NUR ---
Patient's notified of patient's condition by MD Mascorro. requested to be called tomorrow regarding the patient's status.
[2019-07-19] MEDS ORDERED: acetaminophen 325mg tablet PO PRN ×2 (20:40)
[2019-07-19] MEDS ORDERED: midazolam 100mg in NS 100ml 100 ML IV PRN (20:40)
[2019-07-19] MEDS ORDERED: LIDOcaine 2% 10ml TOPICAL JELLY (Urojet) TP ONE (20:40)
[2019-07-19] MEDS ORDERED: morphine 4 MG/ML inj SYRINge IV PRN (20:40)
[2019-07-19] MEDS ORDERED: acetaminophen 650mg rectal suppository RC PRN (20:40)
[2019-07-19] MEDS: K, MAG and/or Phos replacement - Verify level? MC SCH (20:40)
[2019-07-19] MEDS ORDERED: potassium CL 10mEq/100ml bag 100 ML IV PRN (20:40)
[2019-07-19] MEDS ORDERED: potassium Cl 20 mEq SR tablet PO PRN (20:40)
[2019-07-19] MEDS ORDERED: FENTANYL-0.9 % NACL/PF 100 ML IV PRN (20:40)
[2019-07-19] MEDS ORDERED: magnesium hydroxide 30ml (MOM) UD suspension PO PRN (20:40)
[2019-07-19] MEDS ORDERED: ondansetron/PF 4mg/2ml inj IV PRN (20:40)
[2019-07-19] MEDS ORDERED: morphine 2 MG/ML inj. syringe IV PRN (20:40)
--- NOTE | 2019-07-19 20:45 | NUR ---
Intesivist Ton La at bedside assessing the pt, no new orders at this time.
[2019-07-19] MEDS ORDERED: ipratropium/albuterol 3ml nebule NEB PRN (20:55)
[2019-07-19] MEDS ORDERED: albuterol 2.5 MG/3 ML nebule NEB PRN (20:55)
[2019-07-19] MEDS: busPIRone 5mg tablet PO SCH (21:00)
[2019-07-19] MEDS: normal saline 1000ml 1,000 ML IV SCH (21:02)
[2019-07-19 22:20] VITALS: BP 106/59
[2019-07-19 23:00] VITALS: BP 85/58
[2019-07-20] VITALS (24 sets, daily range): BP systolic 89–111; BP diastolic 52–69
[2019-07-20 01:14] LABS: BASOPHILS % (AUTO) 0.1 % (0-1); EOSINOPHILS % (AUTO) 0.2 % (0-6); HEMATOCRIT 41.5 % (35.0-45.0); HEMOGLOBIN 13.5 g/dl (12.0-16.0); LYMPHOCYTES # (AUTO) 0.3 X10'3 (1.1-4.8); LYMPHOCYTES % (AUTO) 3.8 % (21-51); MEAN CORPUSCULAR HEMOGLOBIN 27.6 PG (27.0-31.0); MEAN CORPUSCULAR HGB CONC 32.6 g/dL (33.0-36.5); MEAN CORPUSCULAR VOLUME 84.7 FL (78-98); MEAN PLATELET VOLUME 8.3 FL (7.4-10.4); MONOCYTES # (AUTO) 0.1 X10'3 (0-0.9); MONOCYTES % (AUTO) 1.3 % (2-12); NEUTROPHILS # (AUTO) 6.2 X10'3 (1.8-7.7); NEUTROPHILS % (AUTO) 94.6 % (42-75); PLATELET COUNT 132 X10'3 (140-440); RED CELL DISTRIBUTION WIDTH 14.5 % (11.5-14.5); WHITE BLOOD COUNT 6.6 X10'3 (4.5-11.0)
[2019-07-20 01:26] LABS: ALANINE AMINOTRANSFERASE 31 U/L (12-78); ALBUMIN 3.2 G/DL (3.4-5.0); ALBUMIN/GLOBULIN RATIO 0.9 (1.1-1.5); ALKALINE PHOSPHATASE 90 IU/L (46-116); ANION GAP 9 (8-16); ASPARTATE AMINO TRANSFERASE 31 U/L (10-37); BILIRUBIN,TOTAL 0.7 MG/DL (0.1-1.0); BLOOD UREA NITROGEN 19 MG/DL (7-18); BUN/CREATININE RATIO 15.4 (6.6-38.0); CALCIUM 9.3 MG/DL (8.5-10.1); CHLORIDE 105 MMOL/L (99-107); CREATININE 1.23 MG/DL (0.40-0.90); GLUCOSE 144 MG/DL (70-104); POTASSIUM 3.7 MMOL/L (3.5-5.1); SODIUM 140 MMOL/L (135-145); TOTAL CARBON DIOXIDE 26.2 MMOL/L (24-32); TOTAL PROTEIN 6.7 G/DL (6.4-8.2); eGFR 43 ML/MIN
[2019-07-20 01:30] LABS: MAGNESIUM 2.2 MG/DL (1.5-2.4); PHOSPHORUS 2.1 MG/DL (2.3-4.5)
[2019-07-20] MEDS: methylPREDNISolone sod succ/PF 40mg inj. IV SCH ×4 (01:32→21:11)
[2019-07-20] MEDS: albuterol 2.5 MG/3 ML nebule NEB SCH ×4 (02:26→18:46)
[2019-07-20 04:21] LABS: ABG BASE EXCESS -1.2 mmol/L (-2.0-3.0); ABG HCO3 19.6 mmol/L (22.0-26.0); ABG OXYGEN SATURATION 97.7 % (95-98); ABG PCO2 (T) 23.7 mmHg (35.0-45.0); ABG PH (T) 7.535 (7.350-7.450); ABG PO2 (T) 90.4 mmHg (83-108); FCOHb 0.3 % (0.5-1.5); FMetHb 0.2 % (0.3-1.12); FO2Hb 97.2 % (94-100); PATIENT TEMPERATURE 36.9; PEEP 5 cm H2O; RESPIRATORY RATE 18 b/min; TIDAL VOLUME 450 mL; TOTAL HEMOGLOBIN 14.2 G/dl (12.0-16.0)
--- NOTE | 2019-07-20 06:30 | NUR ---
Patient in room ICU 2039. I have received report from DAYNE Puentes and had the opportunity to ask questions and assume patient care.
[2019-07-20] MEDS: budesonide 0.5mg/2ml UD nebule IH SCH ×2 (07:22→18:45)
[2019-07-20] MEDS: levoTHYROXINE 125mcg tablet PO SCH (07:53)
[2019-07-20] MEDS: atorvastatin 20mg tablet PO SCH (07:53)
[2019-07-20] MEDS: liothyronine sod 5mcg tablet PO SCH (07:53)
[2019-07-20] MEDS: busPIRone 5mg tablet PO SCH ×3 (07:53→21:10)
[2019-07-20] MEDS: flecainide 50mg tablet PO SCH ×2 (07:54→21:11)
[2019-07-20] MEDS: aripiprazole 5mg tablet PO SCH (07:54)
[2019-07-20] MEDS: pantoprazole 40 MG vial IV SCH (07:55)
[2019-07-20] MEDS: benztropine 1mg tablet PO SCH ×2 (07:55→21:11)
[2019-07-20] MEDS: carVEDilol 3.125mg tablet PO SCH ×2 (07:58→21:11)
[2019-07-20] MEDS: buPROPion 75mg tablet PO SCH ×2 (07:58→21:10)
[2019-07-20] MEDS: furosemide 20MG tablet PO SCH ×2 (07:59→21:11)
[2019-07-20] MEDS: magnesium oxide 400mg tablet PO SCH (08:00)
[2019-07-20] MEDS ORDERED: apixaban 2.5mg tablet PO SCH (08:00)
[2019-07-20] MEDS: potassium chloride 10mEq ER tablet PO SCH (08:00)
[2019-07-20] MEDS: K, MAG and/or Phos replacement - Verify level? MC SCH (08:30)
[2019-07-20] MEDS ORDERED: VILAZODONE HCL 40 MG PO SCH (13:20)
[2019-07-20] MEDS: normal saline 1000ml 1,000 ML IV SCH (13:57)
--- NOTE | 2019-07-20 15:04 | NUR ---
Initial: Pt intubated admit w/ acute respiratory failure hx CHF and COPD. OG in place w/ MAP 80 this AM. TF recs below in case prolonged intubation. Will continue to monitor. Rec: 1. IF TF; Vital High Protein at 75ml/hr 2. upon extubation, advance diet as medically indicated to heart healthy 3. routine bowel care 4. wt per rx Addendum: 07/20/19 at [address] Amended: Links added.
--- NOTE | 2019-07-20 15:44 | NUR ---
Patient in room ICU 2039. I have received report from DAYNE Garduno and had the opportunity to ask questions and assume patient care. Patient is laying in hospital bed and reports nausea and pain, I reoriented her to her CADD and advised nausea meds to come. Marleni Louise Rn is orienting to [facility] with me. Addendum: 07/20/19 at 1848 by Angely Santo RN wrong patient
[2019-07-20] MEDS: midazolam 100mg in NS 100ml 100 ML IV PRN (15:49)
[2019-07-20] MEDS: FENTANYL-0.9 % NACL/PF 100 ML IV PRN (15:50)
--- NOTE | 2019-07-20 18:12 | NUR ---
Problems reprioritized. Patient report given, questions answered & plan of care reviewed with DAYNE Au. Addendum: 07/20/19 at 1847 by Angely Santo RN Wrong patient
--- NOTE | 2019-07-20 18:15 | NUR ---
Patient in room ICU 2039. I have received report from DAYNE Campbell and had the opportunity to ask questions and assume patient care. Patient is intubated and sedated, she is comfortable at this time and I will continue to monitor. Marleni Louise RN is orienting with me for [facility].
[2019-07-20] MEDS ORDERED: sodium phosphate inj. 15 MMOL in dextrose 5%-water 250 ML IV PRN (19:10)
[2019-07-20] MEDS ORDERED: sodium phosphate inj. 30 MMOL in dextrose 5%-water 250 ML IV PRN (19:10)
[2019-07-20] MEDS ORDERED: heparin, porcine 5000 units/ml vial SQ SCH (20:00)
[2019-07-20] MEDS: apixaban 2.5mg tablet OGT SCH (21:10)
[2019-07-21] VITALS (24 sets, daily range): BP systolic 92–126; BP diastolic 45–73
[2019-07-21] MEDS: normal saline 1000ml 1,000 ML IV SCH ×2 (00:37→13:56)
[2019-07-21] MEDS: methylPREDNISolone sod succ/PF 40mg inj. IV SCH ×4 (02:30→20:41)
[2019-07-21] MEDS: mineral oil/petrolatum ophthal oint EACHEYE SCH ×4 (02:30→20:41)
[2019-07-21] MEDS: albuterol 2.5 MG/3 ML nebule NEB SCH ×4 (02:32→20:34)
[2019-07-21 03:10] LABS: ABG HCO3 22.6 mmol/L (22.0-26.0); ABG OXYGEN SATURATION 94.2 % (95-98); ABG PCO2 (T) 30.6 mmHg (35.0-45.0); ABG PH (T) 7.486 (7.350-7.450); ABG PO2 (T) 62.7 mmHg (83-108); ALLEN'S TEST POSITIVE; FCOHb 0.3 % (0.5-1.5); FMetHb 0.1 % (0.3-1.12); FO2Hb 93.8 % (94-100); PATIENT TEMPERATURE 36.6; PEEP 5 cm H2O; RESPIRATORY RATE 18 b/min; TIDAL VOLUME 450 mL; TOTAL HEMOGLOBIN 13.3 G/dl (12.0-16.0)
[2019-07-21 06:02] LABS: BASOPHILS % (AUTO) 0 % (0-1); EOSINOPHILS % (AUTO) 0.1 % (0-6); HEMATOCRIT 37.7 % (35.0-45.0); HEMOGLOBIN 12.4 g/dl (12.0-16.0); LYMPHOCYTES # (AUTO) 0.2 X10'3 (1.1-4.8); LYMPHOCYTES % (AUTO) 2.6 % (21-51); MEAN CORPUSCULAR HEMOGLOBIN 27.8 PG (27.0-31.0); MEAN CORPUSCULAR HGB CONC 32.8 g/dL (33.0-36.5); MEAN CORPUSCULAR VOLUME 84.5 FL (78-98); MEAN PLATELET VOLUME 8.7 FL (7.4-10.4); MONOCYTES # (AUTO) 0.2 X10'3 (0-0.9); MONOCYTES % (AUTO) 2.9 % (2-12); NEUTROPHILS # (AUTO) 6.5 X10'3 (1.8-7.7); NEUTROPHILS % (AUTO) 94.4 % (42-75); PLATELET COUNT 119 X10'3 (140-440); RED BLOOD COUNT 4.45 X10'6 (4.20-5.60); RED CELL DISTRIBUTION WIDTH 14.7 % (11.5-14.5); WHITE BLOOD COUNT 6.8 X10'3 (4.5-11.0)
--- NOTE | 2019-07-21 06:09 | NUR ---
Problems reprioritized. Patient report given, questions answered & plan of care reviewed with Adrian OSCAR.
[2019-07-21 06:22] LABS: ALANINE AMINOTRANSFERASE 16 U/L (12-78); ALBUMIN 2.6 G/DL (3.4-5.0); ALBUMIN/GLOBULIN RATIO 0.8 (1.1-1.5); ALKALINE PHOSPHATASE 66 IU/L (46-116); ANION GAP 8 (8-16); ASPARTATE AMINO TRANSFERASE 18 U/L (10-37); BILIRUBIN,TOTAL 0.6 MG/DL (0.1-1.0); BLOOD UREA NITROGEN 19 MG/DL (7-18); BUN/CREATININE RATIO 22.9 (6.6-38.0); CALCIUM 8.7 MG/DL (8.5-10.1); CHLORIDE 107 MMOL/L (99-107); CREATININE 0.83 MG/DL (0.40-0.90); GLUCOSE 160 MG/DL (70-104); MAGNESIUM 2.2 MG/DL (1.5-2.4); PHOSPHORUS 4.1 MG/DL (2.3-4.5); POTASSIUM 3.5 MMOL/L (3.5-5.1); SODIUM 139 MMOL/L (135-145); TOTAL CARBON DIOXIDE 24.3 MMOL/L (24-32); TOTAL PROTEIN 5.8 G/DL (6.4-8.2); eGFR 68 ML/MIN
--- NOTE | 2019-07-21 06:23 | NUR ---
Patient in room ICU 2039. I have received report from DAYNE Au and had the opportunity to ask questions and assume patient care.
[2019-07-21] MEDS: budesonide 0.5mg/2ml UD nebule IH SCH ×2 (06:59→20:35)
[2019-07-21] MEDS: liothyronine sod 5mcg tablet PO SCH (07:57)
[2019-07-21] MEDS: levoTHYROXINE 125mcg tablet PO SCH (07:57)
[2019-07-21] MEDS: buPROPion 75mg tablet PO SCH (07:57)
[2019-07-21] MEDS: furosemide 20MG tablet PO SCH (07:57)
[2019-07-21] MEDS: apixaban 2.5mg tablet OGT SCH ×2 (07:57→20:40)
[2019-07-21] MEDS: aripiprazole 5mg tablet PO SCH (07:57)
[2019-07-21] MEDS: atorvastatin 20mg tablet PO SCH (07:57)
[2019-07-21] MEDS: flecainide 50mg tablet PO SCH (07:57)
[2019-07-21] MEDS: benztropine 1mg tablet PO SCH (07:58)
[2019-07-21] MEDS: busPIRone 5mg tablet PO SCH (07:58)
[2019-07-21] MEDS: carVEDilol 3.125mg tablet PO SCH (07:59)
[2019-07-21] MEDS: potassium chloride 10mEq ER tablet PO SCH (08:00)
[2019-07-21] MEDS: pantoprazole 40 MG vial IV SCH (08:00)
[2019-07-21] MEDS: magnesium oxide 400mg tablet PO SCH (08:00)
[2019-07-21] MEDS: K, MAG and/or Phos replacement - Verify level? MC SCH (08:42)
--- NOTE | 2019-07-21 10:56 | NUR ---
Tube feeding consult: Pt intubated admit with acute respiratory failure, COPD exacerbation per MD note. Has history of CHF and COPD. Has OG tube in place, recommendations for tube feeding below. Will continue to monitor. Rec: 1. Continuous tube feeding per OG tube using Vital High Protein at 75ml/hr will provide total volume 1800 ml, 1800 cals, 158 g protein, and 1512 ml water. 2. Additional water flush per Procedures Tech, patient's sodium 138 and is being diuresed 3. When extubated, advance diet as medically indicated to heart healthy 4. routine bowel care 5. daily weights 6. Prealbumin q sunday and Addendum: 07/21/19 at [address] Amended: Links added.
[2019-07-21] MEDS ORDERED: acetaminophen 325mg/10.15ml oral unit dose solution NG PRN ×2 (11:00)
[2019-07-21 11:02] LABS: PREALBUMIN 18.7 MG/DL (19-36)
[2019-07-21] MEDS: busPIRone 5mg tablet NG SCH ×2 (13:56→20:40)
[2019-07-21] MEDS: midazolam 100mg in NS 100ml 100 ML IV PRN (13:57)
[2019-07-21] MEDS: FENTANYL-0.9 % NACL/PF 100 ML IV PRN (13:58)
--- NOTE | 2019-07-21 18:15 | NUR ---
Patient in room ICU 2039. I have received report from DAYNE Campbell and had the opportunity to ask questions and assume patient care. Patient is intubated and sedated, she is agitated and can be wild per dayshift. I am orienting DAYNE Yepez.
[2019-07-21] MEDS: buPROPion 75mg tablet NG SCH (20:40)
[2019-07-21] MEDS: benztropine 1mg tablet NG SCH (20:40)
[2019-07-21] MEDS: flecainide 50mg tablet NG SCH (20:40)
[2019-07-21] MEDS: carVEDilol 3.125mg tablet NG SCH (20:49)
[2019-07-21] MEDS: furosemide 40 MG/4 ML oral solution UD cup NG SCH (20:49)
[2019-07-22] VITALS (24 sets, daily range): BP systolic 90–147; BP diastolic 45–95
[2019-07-22] MEDS: mineral oil/petrolatum ophthal oint EACHEYE SCH ×4 (02:27→20:59)
[2019-07-22] MEDS: methylPREDNISolone sod succ/PF 40mg inj. IV SCH ×4 (02:27→20:59)
[2019-07-22] MEDS: albuterol 2.5 MG/3 ML nebule NEB SCH ×4 (02:36→21:43)
[2019-07-22 02:56] LABS: ABG BASE EXCESS -1.4 mmol/L (-2.0-3.0); ABG HCO3 21.4 mmol/L (22.0-26.0); ABG OXYGEN SATURATION 97.2 % (95-98); ABG PCO2 (T) 28.8 mmHg (35.0-45.0); ABG PH (T) 7.483 (7.350-7.450); ABG PO2 (T) 82.3 mmHg (83-108); ALLEN'S TEST POSITIVE; FCOHb 0.3 % (0.5-1.5); FMetHb 0.2 % (0.3-1.12); FO2Hb 96.7 % (94-100); PATIENT TEMPERATURE 35.5; PEEP 5 cm H2O; RESPIRATORY RATE 16 b/min; TIDAL VOLUME 400 mL; TOTAL HEMOGLOBIN 13.9 G/dl (12.0-16.0)
[2019-07-22] MEDS: normal saline 1000ml 1,000 ML IV SCH (03:30)
[2019-07-22 06:16] LABS: BASOPHILS % (AUTO) 0 % (0-1); EOSINOPHILS % (AUTO) 0 % (0-6); HEMATOCRIT 41.3 % (35.0-45.0); HEMOGLOBIN 13.4 g/dl (12.0-16.0); LYMPHOCYTES # (AUTO) 0.3 X10'3 (1.1-4.8); LYMPHOCYTES % (AUTO) 4.6 % (21-51); MEAN CORPUSCULAR HEMOGLOBIN 27.8 PG (27.0-31.0); MEAN CORPUSCULAR HGB CONC 32.6 g/dL (33.0-36.5); MEAN CORPUSCULAR VOLUME 85.3 FL (78-98); MONOCYTES # (AUTO) 0.3 X10'3 (0-0.9); MONOCYTES % (AUTO) 3.7 % (2-12); NEUTROPHILS # (AUTO) 6.4 X10'3 (1.8-7.7); NEUTROPHILS % (AUTO) 91.7 % (42-75); PLATELET COUNT 126 X10'3 (140-440); RED BLOOD COUNT 4.84 X10'6 (4.20-5.60)
--- NOTE | 2019-07-22 06:17 | NUR ---
Problems reprioritized. Patient report given, questions answered & plan of care reviewed with Brisa OSCAR.
--- NOTE | 2019-07-22 06:30 | NUR ---
Patient in room ICU 2039. I have received report from Marleni OSCAR and had the opportunity to ask questions and assume patient care.
[2019-07-22 06:43] LABS: ANION GAP 7 (8-16); BLOOD UREA NITROGEN 23 MG/DL (7-18); BUN/CREATININE RATIO 26.7 (6.6-38.0); CHLORIDE 110 MMOL/L (99-107); CREATININE 0.86 MG/DL (0.40-0.90); GLUCOSE 159 MG/DL (70-104); POTASSIUM 3.5 MMOL/L (3.5-5.1); SODIUM 142 MMOL/L (135-145); TOTAL CARBON DIOXIDE 25.2 MMOL/L (24-32)
[2019-07-22 06:44] LABS: ALANINE AMINOTRANSFERASE 21 U/L (12-78); ALBUMIN 2.7 G/DL (3.4-5.0); ALBUMIN/GLOBULIN RATIO 0.8 (1.1-1.5); ALKALINE PHOSPHATASE 68 IU/L (46-116); ASPARTATE AMINO TRANSFERASE 16 U/L (10-37); BILIRUBIN,TOTAL 0.4 MG/DL (0.1-1.0); CALCIUM 8.7 MG/DL (8.5-10.1); MAGNESIUM 2.4 MG/DL (1.5-2.4); PHOSPHORUS 3.5 MG/DL (2.3-4.5); eGFR 66 ML/MIN
[2019-07-22] MEDS: budesonide 0.5mg/2ml UD nebule IH SCH ×2 (07:39→21:44)
[2019-07-22] MEDS ORDERED: POTASSIUM BICARB 20meq eff tab 20 MEQ TABLET.EFF NG SCH (08:00)
[2019-07-22] MEDS: K, MAG and/or Phos replacement - Verify level? MC SCH (08:00)
[2019-07-22] MEDS: levoTHYROXINE sod inj. 100mcg/5 ml vial IV SCH (08:25)
[2019-07-22] MEDS: pantoprazole 40 MG vial IV SCH (08:40)
[2019-07-22] MEDS: buPROPion 75mg tablet NG SCH ×2 (08:53→21:00)
[2019-07-22] MEDS: aripiprazole 5mg tablet NG SCH (08:53)
[2019-07-22] MEDS: flecainide 50mg tablet NG SCH ×2 (08:54→20:59)
[2019-07-22] MEDS: busPIRone 5mg tablet NG SCH ×3 (08:54→21:02)
[2019-07-22] MEDS: liothyronine sod 5mcg tablet NG SCH (08:55)
[2019-07-22] MEDS: magnesium oxide 400mg tablet NG SCH (08:57)
[2019-07-22] MEDS: apixaban 2.5mg tablet OGT SCH ×2 (09:04→20:59)
[2019-07-22] MEDS: carVEDilol 3.125mg tablet NG SCH ×2 (09:04→20:59)
[2019-07-22] MEDS: atorvastatin 20mg tablet NG SCH (09:04)
[2019-07-22] MEDS: VILAZODONE HCL 40 MG NG SCH (09:05)
[2019-07-22] MEDS: benztropine 1mg tablet NG SCH ×2 (09:07→21:00)
--- NOTE | 2019-07-22 11:42 | NUR ---
Problems reprioritized. Patient report given, questions answered & plan of care reviewed with Dominique OSCAR/ Natasha OSCAR.
[2019-07-22] MEDS: dexmedetomidin/NS 400mcg/100ml 100 ML IV SCH ×3 (12:06→21:35)
[2019-07-22] MEDS: furosemide 40 MG/4 ML oral solution UD cup NG SCH ×2 (12:06→20:59)
[2019-07-22] MEDS: docusate sodium 100mg/10ml UD cup PO SCH (12:06)
--- NOTE | 2019-07-22 18:24 | NUR ---
Patient in room ICU 2039. I have received report from DAYNE Fox and had the opportunity to ask questions and assume patient care.
[2019-07-23] VITALS (24 sets, daily range): BP systolic 120–152; BP diastolic 67–92
[2019-07-23] MEDS: dexmedetomidin/NS 400mcg/100ml 100 ML IV SCH ×7 (00:55→22:13)
[2019-07-23] MEDS: mineral oil/petrolatum ophthal oint EACHEYE SCH ×4 (02:05→20:44)
[2019-07-23] MEDS: methylPREDNISolone sod succ/PF 40mg inj. IV SCH ×4 (02:05→20:44)
[2019-07-23] MEDS: albuterol 2.5 MG/3 ML nebule NEB SCH ×4 (02:46→20:37)
[2019-07-23 03:04] LABS: BASOPHILS % (AUTO) 0 % (0-1); EOSINOPHILS % (AUTO) 0 % (0-6); HEMATOCRIT 42.6 % (35.0-45.0); HEMOGLOBIN 13.8 g/dl (12.0-16.0); LYMPHOCYTES # (AUTO) 0.2 X10'3 (1.1-4.8); LYMPHOCYTES % (AUTO) 2.1 % (21-51); MEAN CORPUSCULAR HEMOGLOBIN 27.6 PG (27.0-31.0); MEAN CORPUSCULAR HGB CONC 32.4 g/dL (33.0-36.5); MEAN CORPUSCULAR VOLUME 85.2 FL (78-98); MONOCYTES # (AUTO) 0.4 X10'3 (0-0.9); MONOCYTES % (AUTO) 5.5 % (2-12); NEUTROPHILS # (AUTO) 6.8 X10'3 (1.8-7.7); NEUTROPHILS % (AUTO) 92.4 % (42-75); PLATELET COUNT 129 X10'3 (140-440); RED CELL DISTRIBUTION WIDTH 14.8 % (11.5-14.5); WHITE BLOOD COUNT 7.4 X10'3 (4.5-11.0)
[2019-07-23 03:05] LABS: ABG BASE EXCESS -2.2 mmol/L (-2.0-3.0); ABG HCO3 21.6 mmol/L (22.0-26.0); ABG OXYGEN SATURATION 94.4 % (95-98); ABG PCO2 (T) 34.3 mmHg (35.0-45.0); ABG PH (T) 7.417 (7.350-7.450); ABG PO2 (T) 68.3 mmHg (83-108); ALLEN'S TEST POSITIVE; FCOHb 0.5 % (0.5-1.5); FMetHb 0.2 % (0.3-1.12); FO2Hb 93.7 % (94-100); PATIENT TEMPERATURE 36.8; PEEP 5 cm H2O; TOTAL HEMOGLOBIN 14.2 G/dl (12.0-16.0)
[2019-07-23 03:15] LABS: ALANINE AMINOTRANSFERASE 18 U/L (12-78); ALBUMIN 2.6 G/DL (3.4-5.0); ALBUMIN/GLOBULIN RATIO 0.7 (1.1-1.5); ALKALINE PHOSPHATASE 63 IU/L (46-116); ANION GAP 5 (8-16); ASPARTATE AMINO TRANSFERASE 12 U/L (10-37); BILIRUBIN,TOTAL 0.4 MG/DL (0.1-1.0); BLOOD UREA NITROGEN 30 MG/DL (7-18); BUN/CREATININE RATIO 30.6 (6.6-38.0); CALCIUM 8.7 MG/DL (8.5-10.1); CHLORIDE 110 MMOL/L (99-107); CREATININE 0.98 MG/DL (0.40-0.90); GLUCOSE 169 MG/DL (70-104); MAGNESIUM 2.3 MG/DL (1.5-2.4); PHOSPHORUS 3.1 MG/DL (2.3-4.5); POTASSIUM 3.8 MMOL/L (3.5-5.1); SODIUM 143 MMOL/L (135-145); TOTAL CARBON DIOXIDE 28.2 MMOL/L (24-32); TOTAL PROTEIN 6.1 G/DL (6.4-8.2); eGFR 56 ML/MIN
[2019-07-23] MEDS: midazolam 100mg in NS 100ml 100 ML IV PRN (04:31)
--- NOTE | 2019-07-23 06:17 | NUR ---
Problems reprioritized. Patient report given, questions answered & plan of care reviewed with DAYNE Ledezma.
--- NOTE | 2019-07-23 06:30 | NUR ---
Patient in room ICU 2039. I have received report from Iris OSCAR and had the opportunity to ask questions and assume patient care.
[2019-07-23] MEDS: K, MAG and/or Phos replacement - Verify level? MC SCH (06:42)
[2019-07-23] MEDS: budesonide 0.5mg/2ml UD nebule IH SCH ×2 (07:06→20:37)
[2019-07-23] MEDS: docusate sodium 100mg/10ml UD cup PO SCH (08:08)
[2019-07-23] MEDS: pantoprazole 40 MG vial IV SCH (08:08)
[2019-07-23] MEDS: levoTHYROXINE sod inj. 100mcg/5 ml vial IV SCH (08:14)
[2019-07-23] MEDS: VILAZODONE HCL 40 MG NG SCH (08:28)
[2019-07-23] MEDS: benztropine 1mg tablet NG SCH ×2 (08:28→20:44)
[2019-07-23] MEDS: liothyronine sod 5mcg tablet NG SCH (08:29)
[2019-07-23] MEDS: flecainide 50mg tablet NG SCH ×2 (08:29→20:43)
[2019-07-23] MEDS: furosemide 40 MG/4 ML oral solution UD cup NG SCH ×2 (08:29→20:43)
[2019-07-23] MEDS: busPIRone 5mg tablet NG SCH ×3 (08:30→20:43)
[2019-07-23] MEDS: aripiprazole 5mg tablet NG SCH (08:30)
[2019-07-23] MEDS: carVEDilol 3.125mg tablet NG SCH ×2 (08:30→20:44)
[2019-07-23] MEDS: magnesium oxide 400mg tablet NG SCH (08:30)
[2019-07-23] MEDS: buPROPion 75mg tablet NG SCH ×2 (08:31→20:44)
[2019-07-23] MEDS: atorvastatin 20mg tablet NG SCH (08:31)
[2019-07-23] MEDS: apixaban 2.5mg tablet OGT SCH ×2 (08:33→20:43)
--- NOTE | 2019-07-23 10:32 | NUR ---
Discussed with Dr. Jones that the patient's blood sugar check at 0900 was 231 and this would normally meet protocol. Requested to start humulin per protocol. Dr. Jones asked how many she has had above 200? state this is the first. He stated to wait to see what next blood sugar is to ensure that we don't cause hypoglycemia. Will continue to monitor.
--- NOTE | 2019-07-23 10:36 | NUR ---
Reassessment: Pt remains intubated GRV increased to 500 today; CAMDEN d/w RN currently TF hold pending GRV recheck this AM prior to restarting. Pt has not had BM this admit 4 days receiving colace. CAMDEN le/w RN regarding opioid antagonist per MD approval since on opioids. Na 143 today; CAMDEN le/w RN regarding additional free water per hotel assistant manager if EN to restart since diuresing on lasix. Will continue to monitor for EN tolerance. Rec: 1. Continuous tube feeding per OG tube using Vital High Protein at 75ml/hr will provide total volume 1800 ml, 1800 cals, 158 g protein, and 1512 ml water. 2. Additional water flush per Composition Board Press Operator, patient's sodium 143 and is being diuresed 3. When extubated, advance diet as medically indicated to heart healthy 4. routine bowel care; consider opioid antagonist if MD agreeable since receiving opioids 5. daily weights 6. Prealbumin q sunday and Addendum: 07/23/19 at [address] Amended: Links added.
--- NOTE | 2019-07-23 11:20 | NUR ---
Discussed with Dr. Jones that the patient has been tachypneic all night and that 2 mg boluses were being given to keep her RR within normal. Discussed increasing precedex or prn ativan. Dr. Jones stated to restart versed drip on low rate and then get parameters while on versed to see if we can get her calm. Will continue to monitor.
--- NOTE | 2019-07-23 13:00 | NUR ---
Patient's called and states that the patient is often breathing shallow and with a rate of 40-60s. Patient had PFT done here a few years ago. States patient was on klonopin prior to buspar. Patient states that patient's seen by Dr. Pepper's physician assitance, Artur SCHULTE.
--- NOTE | 2019-07-23 16:00 | NUR ---
Discussed with Dr. Jones that the patient's blood sugars today were 231, 198 and 172. Requested to start hyperglycemic protocol. Dr. Jones states no her sugar is 172. Will continue to monitor.
--- NOTE | 2019-07-23 18:30 | NUR ---
Problems reprioritized. Patient report given, questions answered & plan of care reviewed with Clara OSCAR.
[2019-07-24] VITALS (24 sets, daily range): BP systolic 112–148; BP diastolic 64–88
[2019-07-24] MEDS: dexmedetomidin/NS 400mcg/100ml 100 ML IV SCH ×5 (01:17→22:43)
[2019-07-24] MEDS: methylPREDNISolone sod succ/PF 40mg inj. IV SCH ×4 (01:18→20:45)
[2019-07-24] MEDS: mineral oil/petrolatum ophthal oint EACHEYE SCH ×4 (01:18→20:00)
[2019-07-24 03:00] LABS: BASOPHILS % (AUTO) 0 % (0-1); EOSINOPHILS % (AUTO) 0 % (0-6); HEMATOCRIT 43.8 % (35.0-45.0); HEMOGLOBIN 14.1 g/dl (12.0-16.0); LYMPHOCYTES # (AUTO) 0.2 X10'3 (1.1-4.8); MEAN CORPUSCULAR HEMOGLOBIN 27.6 PG (27.0-31.0); MEAN CORPUSCULAR HGB CONC 32.2 g/dL (33.0-36.5); MEAN CORPUSCULAR VOLUME 85.7 FL (78-98); MEAN PLATELET VOLUME 9.2 FL (7.4-10.4); MONOCYTES # (AUTO) 0.6 X10'3 (0-0.9); MONOCYTES % (AUTO) 6.6 % (2-12); NEUTROPHILS # (AUTO) 8.2 X10'3 (1.8-7.7); NEUTROPHILS % (AUTO) 91.4 % (42-75); PLATELET COUNT 119 X10'3 (140-440); RED BLOOD COUNT 5.12 X10'6 (4.20-5.60); RED CELL DISTRIBUTION WIDTH 14.6 % (11.5-14.5)
[2019-07-24 03:12] LABS: ALANINE AMINOTRANSFERASE 22 U/L (12-78); ALBUMIN 2.5 G/DL (3.4-5.0); ALBUMIN/GLOBULIN RATIO 0.7 (1.1-1.5); ALKALINE PHOSPHATASE 60 IU/L (46-116); ANION GAP 4 (8-16); ASPARTATE AMINO TRANSFERASE 16 U/L (10-37); BILIRUBIN,TOTAL 0.6 MG/DL (0.1-1.0); BLOOD UREA NITROGEN 32 MG/DL (7-18); BUN/CREATININE RATIO 39.5 (6.6-38.0); CHLORIDE 108 MMOL/L (99-107); CREATININE 0.81 MG/DL (0.40-0.90); GLUCOSE 160 MG/DL (70-104); MAGNESIUM 2.1 MG/DL (1.5-2.4); PHOSPHORUS 2.2 MG/DL (2.3-4.5); POTASSIUM 3.5 MMOL/L (3.5-5.1); PREALBUMIN 22.7 MG/DL (19-36); SODIUM 143 MMOL/L (135-145); TOTAL CARBON DIOXIDE 30.9 MMOL/L (24-32); TOTAL PROTEIN 6.1 G/DL (6.4-8.2); eGFR 70 ML/MIN
[2019-07-24] MEDS: albuterol 2.5 MG/3 ML nebule NEB SCH ×3 (03:40→15:29)
[2019-07-24 04:01] LABS: ABG BASE EXCESS 5.1 mmol/L (-2.0-3.0); ABG HCO3 28.7 mmol/L (22.0-26.0); ABG OXYGEN SATURATION 94.3 % (95-98); ABG PCO2 (T) 41.1 mmHg (35.0-45.0); ABG PH (T) 7.467 (7.350-7.450); ABG PO2 (T) 72.8 mmHg (83-108); ALLEN'S TEST POSITIVE; FCOHb 0.7 % (0.5-1.5); FMetHb 0.2 % (0.3-1.12); FO2Hb 93.5 % (94-100); PATIENT TEMPERATURE 38.3; PEEP 5 cm H2O; RESPIRATORY RATE 12 b/min; TIDAL VOLUME 450 mL; TOTAL HEMOGLOBIN 14.8 G/dl (12.0-16.0)
--- NOTE | 2019-07-24 06:30 | NUR ---
Patient in room ICU 2039. I have received report from Clara OSCAR and had the opportunity to ask questions and assume patient care.
[2019-07-24] MEDS: budesonide 0.5mg/2ml UD nebule IH SCH ×2 (07:06→19:38)
[2019-07-24] MEDS: pantoprazole 40 MG vial IV SCH (07:37)
[2019-07-24] MEDS: levoTHYROXINE sod inj. 100mcg/5 ml vial IV SCH (07:45)
[2019-07-24] MEDS: apixaban 2.5mg tablet OGT SCH ×2 (07:52→20:00)
[2019-07-24] MEDS: aripiprazole 5mg tablet NG SCH (07:52)
[2019-07-24] MEDS: docusate sodium 100mg/10ml UD cup PO SCH (07:52)
[2019-07-24] MEDS: benztropine 1mg tablet NG SCH ×2 (07:52→20:00)
[2019-07-24] MEDS: VILAZODONE HCL 40 MG NG SCH (07:52)
[2019-07-24] MEDS: magnesium oxide 400mg tablet NG SCH (07:53)
[2019-07-24] MEDS: buPROPion 75mg tablet NG SCH ×2 (07:53→20:00)
[2019-07-24] MEDS: carVEDilol 3.125mg tablet NG SCH ×2 (07:53→20:00)
[2019-07-24] MEDS: busPIRone 5mg tablet NG SCH ×3 (07:53→20:36)
[2019-07-24] MEDS: liothyronine sod 5mcg tablet NG SCH (07:54)
[2019-07-24] MEDS: atorvastatin 20mg tablet NG SCH (07:54)
[2019-07-24] MEDS: flecainide 50mg tablet NG SCH ×2 (07:54→20:00)
[2019-07-24] MEDS: furosemide 40 MG/4 ML oral solution UD cup NG SCH ×2 (08:00→20:00)
[2019-07-24] MEDS: K, MAG and/or Phos replacement - Verify level? MC SCH (08:00)
--- NOTE | 2019-07-24 14:00 | NUR ---
Notified Dr. Jones of blood sugar levels and phos level of 2.2, also patient has not stooled since 07/20/19. States no further orders at this time.
[2019-07-24] MEDS ORDERED: racepinephrine 11.25mg/0.5ml nebule NEB PRN (15:45)
[2019-07-24] MEDS ORDERED: ipratropium/albuterol 3ml nebule NEB PRN (15:45)
--- NOTE | 2019-07-24 16:23 | NUR ---
Patient extubated to BiPAP, RT Leena states slight stridor, epineb given at this time. Notified Dr. Jones that the patient is breathing at 49-59 a minute which was same rate while on vent once versed stopped. Received order to get ABG now. Will continue to monitor.
[2019-07-24 16:31] LABS: ABG BASE EXCESS 3.6 mmol/L (-2.0-3.0); ABG HCO3 26.8 mmol/L (22.0-26.0); ABG OXYGEN SATURATION 97.9 % (95-98); ABG PCO2 (T) 36.2 mmHg (35.0-45.0); ABG PH (T) 7.487 (7.350-7.450); ABG PO2 (T) 95.8 mmHg (83-108); ALLEN'S TEST POSITIVE; FCOHb 0.3 % (0.5-1.5); FMetHb 0.2 % (0.3-1.12); FO2Hb 97.4 % (94-100); RESPIRATORY RATE 14 b/min; TOTAL HEMOGLOBIN 14.9 G/dl (12.0-16.0)
--- NOTE | 2019-07-24 17:30 | NUR ---
Spoke with who states that the patient does not use CPAP or BIPAP at home but will use 2 L NC at night and in days with shortness of breath.
--- NOTE | 2019-07-24 18:33 | NUR ---
Problems reprioritized. Patient report given, questions answered & plan of care reviewed with Clara OSCAR.
[2019-07-24] MEDS ORDERED: furosemide 40mg/4ml inj IV ONE (19:35)
[2019-07-24] MEDS: ipratropium/albuterol 3ml nebule NEB SCH (19:39)
--- NOTE | 2019-07-24 21:27 | NUR ---
Placed call for patient to spouse, patient listening to spouse on telephone now.
[2019-07-25] VITALS (20 sets, daily range): BP systolic 107–149; BP diastolic 56–83
[2019-07-25] MEDS: mineral oil/petrolatum ophthal oint EACHEYE SCH ×2 (01:42→08:00)
[2019-07-25] MEDS: methylPREDNISolone sod succ/PF 40mg inj. IV SCH ×3 (02:07→14:00)
[2019-07-25] MEDS: dexmedetomidin/NS 400mcg/100ml 100 ML IV SCH ×3 (02:17→08:57)
[2019-07-25 02:47] LABS: BASOPHILS % (AUTO) 0.1 % (0-1); EOSINOPHILS % (AUTO) 0 % (0-6); HEMATOCRIT 43.1 % (35.0-45.0); LYMPHOCYTES # (AUTO) 0.2 X10'3 (1.1-4.8); LYMPHOCYTES % (AUTO) 1.4 % (21-51); MEAN CORPUSCULAR HEMOGLOBIN 27.7 PG (27.0-31.0); MEAN CORPUSCULAR HGB CONC 32.5 g/dL (33.0-36.5); MEAN CORPUSCULAR VOLUME 85.4 FL (78-98); MEAN PLATELET VOLUME 9.1 FL (7.4-10.4); MONOCYTES # (AUTO) 0.7 X10'3 (0-0.9); MONOCYTES % (AUTO) 5.2 % (2-12); NEUTROPHILS % (AUTO) 93.3 % (42-75); PLATELET COUNT 117 X10'3 (140-440); RED BLOOD COUNT 5.05 X10'6 (4.20-5.60); RED CELL DISTRIBUTION WIDTH 14.6 % (11.5-14.5)
[2019-07-25 03:02] LABS: ALANINE AMINOTRANSFERASE 18 U/L (12-78); ALBUMIN 2.5 G/DL (3.4-5.0); ALBUMIN/GLOBULIN RATIO 0.7 (1.1-1.5); ALKALINE PHOSPHATASE 57 IU/L (46-116); ANION GAP 4 (8-16); ASPARTATE AMINO TRANSFERASE 14 U/L (10-37); BILIRUBIN,TOTAL 0.9 MG/DL (0.1-1.0); BLOOD UREA NITROGEN 32 MG/DL (7-18); BUN/CREATININE RATIO 33.7 (6.6-38.0); CALCIUM 9.1 MG/DL (8.5-10.1); CHLORIDE 108 MMOL/L (99-107); CREATININE 0.95 MG/DL (0.40-0.90); GLUCOSE 163 MG/DL (70-104); MAGNESIUM 2.2 MG/DL (1.5-2.4); PHOSPHORUS 3.3 MG/DL (2.3-4.5); POTASSIUM 3.4 MMOL/L (3.5-5.1); SODIUM 145 MMOL/L (135-145); TOTAL CARBON DIOXIDE 33.2 MMOL/L (24-32); TOTAL PROTEIN 6.2 G/DL (6.4-8.2); eGFR 58 ML/MIN
[2019-07-25] MEDS ORDERED: potassium CL 10mEq/100ml bag 100 ML IV PRN (03:30)
[2019-07-25] MEDS: ipratropium/albuterol 3ml nebule NEB SCH ×4 (03:36→20:09)
[2019-07-25] MEDS: potassium CL 10mEq/100ml bag 100 ML IV PRN (04:06)
--- NOTE | 2019-07-25 06:58 | NUR ---
Patient in room ICU 2039. I have received report from DAYNE PATEL and had the opportunity to ask questions and assume patient care.
--- NOTE | 2019-07-25 07:13 | NUR ---
Problems reprioritized. Patient report given, questions answered & plan of care reviewed with CHEYENNE OSCAR.
[2019-07-25] MEDS: budesonide 0.5mg/2ml UD nebule IH SCH ×2 (07:44→20:09)
[2019-07-25] MEDS: K, MAG and/or Phos replacement - Verify level? MC SCH (08:00)
[2019-07-25] MEDS: VILAZODONE HCL 40 MG NG SCH (08:00)
[2019-07-25] MEDS: pantoprazole 40 MG vial IV SCH (08:58)
[2019-07-25] MEDS: docusate sodium 100mg/10ml UD cup PO SCH (08:59)
[2019-07-25] MEDS: flecainide 50mg tablet NG SCH ×2 (08:59→20:50)
[2019-07-25] MEDS: furosemide 40 MG/4 ML oral solution UD cup NG SCH ×2 (09:00→20:00)
[2019-07-25] MEDS: liothyronine sod 5mcg tablet NG SCH (09:01)
[2019-07-25] MEDS: benztropine 1mg tablet NG SCH ×2 (09:01→20:50)
[2019-07-25] MEDS: busPIRone 5mg tablet NG SCH ×3 (09:02→20:50)
[2019-07-25] MEDS: carVEDilol 3.125mg tablet NG SCH ×2 (09:02→20:50)
[2019-07-25] MEDS: buPROPion 75mg tablet NG SCH ×2 (09:02→20:50)
[2019-07-25] MEDS: apixaban 2.5mg tablet OGT SCH ×2 (09:03→20:50)
[2019-07-25] MEDS: atorvastatin 20mg tablet NG SCH (09:03)
[2019-07-25] MEDS: magnesium oxide 400mg tablet NG SCH (09:03)
[2019-07-25] MEDS: aripiprazole 5mg tablet NG SCH (09:03)
[2019-07-25] MEDS: levoTHYROXINE sod inj. 100mcg/5 ml vial IV SCH (09:03)
[2019-07-25] MEDS: potassium Cl 20 mEq SR tablet PO PRN ×2 (09:22→22:20)
--- NOTE | 2019-07-25 09:29 | NUR ---
Reassessment: Pt has been extubated and TF discontinued. Pt A/O x 2. Pt s/p BSS this morning with ST recs pureed food with nectar thick liquids but must take small bites and sips and eat slowly as to not get SOB per ST note. Pending first meal since PO diet advancement. Per RN note pt without a BM since 07/19, was notified. Pt receiving routine Colace and with PRN bowel care not yet given. Will continue to follow closely and monitor need for nutrition intervention. Rec: 1. Continue pureed food with nectar thick liquids per ST recs 2. Advance diet as medically indicated to heart healthy 3. Monitor need for ONS 4. Routine bowel care; monitor need for additional, unable to send prunes/prune juice at this time given current diet order 5. wt per rx Addendum: 07/25/19 at [address] Amended: Links added.
--- NOTE | 2019-07-25 16:30 | NUR ---
Patient in room PCU 3025. I have received report from Maxine OSCAR and had the opportunity to ask questions and assume patient care.
--- NOTE | 2019-07-25 16:50 | NUR ---
Problems reprioritized. Patient report given, questions answered & plan of care reviewed with DAYNE Francis. Transferred patient via wheelchair to PCU floor, placed in room 3025A. All belongings were collected and put in bedroom closet. Helped nurse transfer patient to bed. Called to inform him of patient's transfer. All needs met at this time.
--- NOTE | 2019-07-25 16:53 | NUR ---
Pt arrived to unit in room 4777W. Pt oriented to room and call light. Vitals taken and WNL
--- NOTE | 2019-07-25 18:29 | NUR ---
Problems reprioritized. Patient report given, questions answered & plan of care reviewed with Hiram OSCAR.
--- NOTE | 2019-07-25 18:30 | NUR ---
Patient in room PCU 3025. I have received report from Tito OSCAR and had the opportunity to ask questions and assume patient care.
[2019-07-26 02:00] VITALS: BP 139/84
[2019-07-26] MEDS: ipratropium/albuterol 3ml nebule NEB SCH ×4 (02:39→20:54)
[2019-07-26 05:27] LABS: ALANINE AMINOTRANSFERASE 19 U/L (12-78); ALBUMIN 2.3 G/DL (3.4-5.0); ALBUMIN/GLOBULIN RATIO 0.6 (1.1-1.5); ALKALINE PHOSPHATASE 58 IU/L (46-116); ANION GAP 6 (8-16); ASPARTATE AMINO TRANSFERASE 22 U/L (10-37); BILIRUBIN,TOTAL 1.4 MG/DL (0.1-1.0); BLOOD UREA NITROGEN 30 MG/DL (7-18); BUN/CREATININE RATIO 35.3 (6.6-38.0); CALCIUM 9.5 MG/DL (8.5-10.1); CHLORIDE 110 MMOL/L (99-107); CREATININE 0.85 MG/DL (0.40-0.90); GLUCOSE 106 MG/DL (70-104); MAGNESIUM 2.2 MG/DL (1.5-2.4); PHOSPHORUS 2.7 MG/DL (2.3-4.5); POTASSIUM 3.5 MMOL/L (3.5-5.1); SODIUM 148 MMOL/L (135-145); TOTAL CARBON DIOXIDE 31.9 MMOL/L (24-32); TOTAL PROTEIN 5.9 G/DL (6.4-8.2); eGFR 67 ML/MIN
[2019-07-26 05:48] LABS: BASOPHILS % (AUTO) 0.2 % (0-1); EOSINOPHILS % (AUTO) 0 % (0-6); HEMATOCRIT 40.7 % (35.0-45.0); HEMOGLOBIN 13.2 g/dl (12.0-16.0); LYMPHOCYTES # (AUTO) 0.3 X10'3 (1.1-4.8); LYMPHOCYTES % (AUTO) 1.7 % (21-51); MEAN CORPUSCULAR HEMOGLOBIN 27.3 PG (27.0-31.0); MEAN CORPUSCULAR HGB CONC 32.4 g/dL (33.0-36.5); MEAN CORPUSCULAR VOLUME 84.3 FL (78-98); MEAN PLATELET VOLUME 9.2 FL (7.4-10.4); MONOCYTES # (AUTO) 1.4 X10'3 (0-0.9); MONOCYTES % (AUTO) 7.3 % (2-12); NEUTROPHILS % (AUTO) 90.8 % (42-75); PLATELET COUNT 170 X10'3 (140-440); RED BLOOD COUNT 4.83 X10'6 (4.20-5.60); WHITE BLOOD COUNT 19.9 X10'3 (4.5-11.0)
--- NOTE | 2019-07-26 06:20 | NUR ---
Patient in room PCU 3025. I have received report from Randy RN and had the opportunity to ask questions and assume patient care.
--- NOTE | 2019-07-26 06:30 | NUR ---
Rapid response called on Pt at 0630. Pt's lips were cyanotic, O2 sat was 66% and HR was in the 130's. Pt was initially on 2L NC when discovered in this state. Bipap was put on Pt with an Fio2 of 40%. Pt's sats climbed to low 90's and HR decreased to low 100's. BP WNL. Temp of 99.4 alisson. aMdison assault amphibious vehicle officer CC, Cristopher RT, Irasema PCU Charge and Tito RN were at rapid response. Pt now sating in the low/mid 90's with bipap(Fio2 40%), HR [id number]. Will continue to monitor Pt.
--- NOTE | 2019-07-26 06:35 | NUR ---
Problems reprioritized. Patient report given, questions answered & plan of care reviewed with Tito OSCAR.
[2019-07-26] MEDS: budesonide 0.5mg/2ml UD nebule IH SCH ×2 (06:39→20:54)
[2019-07-26 07:01] LABS: ABG BASE EXCESS -0.2 mmol/L (-2.0-3.0); ABG HCO3 23.6 mmol/L (22.0-26.0); ABG OXYGEN SATURATION 94.5 % (95-98); ABG PCO2 (T) 35.9 mmHg (35.0-45.0); ABG PH (T) 7.435 (7.350-7.450); ABG PO2 (T) 71.5 mmHg (83-108); ALLEN'S TEST POSITIVE; FCOHb 0.8 % (0.5-1.5); FMetHb 0.2 % (0.3-1.12); FO2Hb 93.6 % (94-100); RESPIRATORY RATE 12 b/min; TOTAL HEMOGLOBIN 14.9 G/dl (12.0-16.0)
[2019-07-26] MEDS: K, MAG and/or Phos replacement - Verify level? MC SCH (08:00)
[2019-07-26] MEDS: predniSONE 20 mg tablet PO SCH (08:58)
[2019-07-26] MEDS: buPROPion 75mg tablet NG SCH (08:58)
[2019-07-26] MEDS: magnesium oxide 400mg tablet NG SCH (08:58)
[2019-07-26] MEDS: flecainide 50mg tablet NG SCH ×2 (08:58→20:49)
[2019-07-26] MEDS: docusate sodium 100mg/10ml UD cup PO SCH (08:58)
[2019-07-26] MEDS: furosemide 40 MG/4 ML oral solution UD cup NG SCH (08:59)
[2019-07-26] MEDS: carVEDilol 3.125mg tablet NG SCH (08:59)
[2019-07-26] MEDS: benztropine 1mg tablet NG SCH (08:59)
[2019-07-26] MEDS: liothyronine sod 5mcg tablet NG SCH (08:59)
[2019-07-26] MEDS: atorvastatin 20mg tablet NG SCH (08:59)
[2019-07-26] MEDS: apixaban 2.5mg tablet OGT SCH (08:59)
[2019-07-26] MEDS: busPIRone 5mg tablet NG SCH (08:59)
[2019-07-26] MEDS: aripiprazole 5mg tablet NG SCH (08:59)
[2019-07-26] MEDS: VILAZODONE HCL 40 MG NG SCH (09:00)
[2019-07-26] MEDS: pantoprazole 40mg Tablet.DR PO SCH (09:00)
[2019-07-26] MEDS: levoTHYROXINE sod inj. 100mcg/5 ml vial IV SCH (09:52)
--- NOTE | 2019-07-26 10:35 | NUR ---
Problems reprioritized. Patient report given, questions answered & plan of care reviewed with Griffin OSCAR.
[2019-07-26 11:00] VITALS: BP_SYST 119; BP_SYST 140; BP_DIAS 71; BP_DIAS 84
--- NOTE | 2019-07-26 11:12 | NUR ---
Patient in room PCU 3025. I have received report from Tito OSCAR and had the opportunity to ask questions and assume patient care.
[2019-07-26] MEDS ORDERED: benztropine 1mg tablet PO SCH (12:05)
[2019-07-26] MEDS: magnesium oxide 400mg tablet PO SCH (12:32)
[2019-07-26] MEDS: liothyronine sod 5mcg tablet PO SCH (12:32)
[2019-07-26] MEDS: aripiprazole 5mg tablet PO SCH (12:32)
[2019-07-26] MEDS: busPIRone 5mg tablet PO SCH ×2 (12:32→20:48)
[2019-07-26 15:00] VITALS: BP 119/66
[2019-07-26] MEDS: magnesium hydroxide 30ml (MOM) UD suspension NG PRN (16:46)
[2019-07-26 18:00] VITALS: BP 108/49
--- NOTE | 2019-07-26 18:11 | NUR ---
Problems reprioritized. Patient report given, questions answered & plan of care reviewed with Randy RN.
--- NOTE | 2019-07-26 18:30 | NUR ---
Patient in room PCU 3025. I have received report from Griffin OSCAR and had the opportunity to ask questions and assume patient care.
[2019-07-26] MEDS: furosemide 40 MG/4 ML oral solution UD cup PO SCH (20:47)
[2019-07-26] MEDS: carVEDilol 3.125mg tablet PO SCH (20:48)
[2019-07-26] MEDS: benztropine 1mg tablet PO SCH (20:49)
[2019-07-26] MEDS: buPROPion 75mg tablet PO SCH (20:49)
[2019-07-26] MEDS: apixaban 2.5mg tablet PO SCH (20:49)
[2019-07-26 22:00] VITALS: BP 111/59
[2019-07-27 02:00] VITALS: BP 125/66
[2019-07-27] MEDS: ipratropium/albuterol 3ml nebule NEB SCH ×5 (02:56→22:57)
[2019-07-27 05:02] LABS: BASOPHILS % (AUTO) 0.1 % (0-1); EOSINOPHILS % (AUTO) 0.3 % (0-6); HEMATOCRIT 38.7 % (35.0-45.0); HEMOGLOBIN 12.5 g/dl (12.0-16.0); LYMPHOCYTES # (AUTO) 0.2 X10'3 (1.1-4.8); LYMPHOCYTES % (AUTO) 2.2 % (21-51); MEAN CORPUSCULAR HEMOGLOBIN 27.4 PG (27.0-31.0); MEAN CORPUSCULAR HGB CONC 32.3 g/dL (33.0-36.5); MEAN CORPUSCULAR VOLUME 84.8 FL (78-98); MEAN PLATELET VOLUME 8.9 FL (7.4-10.4); MONOCYTES % (AUTO) 8.7 % (2-12); NEUTROPHILS # (AUTO) 10.2 X10'3 (1.8-7.7); NEUTROPHILS % (AUTO) 88.7 % (42-75); PLATELET COUNT 143 X10'3 (140-440); RED BLOOD COUNT 4.56 X10'6 (4.20-5.60); RED CELL DISTRIBUTION WIDTH 15.1 % (11.5-14.5); WHITE BLOOD COUNT 11.5 X10'3 (4.5-11.0)
[2019-07-27 05:18] LABS: ALANINE AMINOTRANSFERASE 20 U/L (12-78); ALBUMIN 2.1 G/DL (3.4-5.0); ALBUMIN/GLOBULIN RATIO 0.6 (1.1-1.5); ALKALINE PHOSPHATASE 56 IU/L (46-116); ANION GAP 5 (8-16); ASPARTATE AMINO TRANSFERASE 17 U/L (10-37); BILIRUBIN,TOTAL 1.1 MG/DL (0.1-1.0); BLOOD UREA NITROGEN 30 MG/DL (7-18); BUN/CREATININE RATIO 32.6 (6.6-38.0); CHLORIDE 112 MMOL/L (99-107); CREATININE 0.92 MG/DL (0.40-0.90); GLUCOSE 123 MG/DL (70-104); MAGNESIUM 2.3 MG/DL (1.5-2.4); PHOSPHORUS 2.4 MG/DL (2.3-4.5); POTASSIUM 3.3 MMOL/L (3.5-5.1); SODIUM 149 MMOL/L (135-145); TOTAL CARBON DIOXIDE 32.2 MMOL/L (24-32); TOTAL PROTEIN 5.4 G/DL (6.4-8.2); eGFR 61 ML/MIN
[2019-07-27 06:00] VITALS: BP 134/67
--- NOTE | 2019-07-27 06:12 | NUR ---
Problems reprioritized. Patient report given, questions answered & plan of care reviewed with Shannan OSCAR.
--- NOTE | 2019-07-27 06:18 | NUR ---
Patient in room PCU 3025. I have received report from Randy RN and had the opportunity to ask questions and assume patient care.
[2019-07-27] MEDS: carVEDilol 3.125mg tablet PO SCH ×2 (08:00→19:52)
[2019-07-27] MEDS: K, MAG and/or Phos replacement - Verify level? MC SCH (08:00)
[2019-07-27] MEDS: levoTHYROXINE sod inj. 100mcg/5 ml vial IV SCH (08:17)
[2019-07-27] MEDS: VILAZODONE HCL 40 MG NG SCH (08:17)
[2019-07-27] MEDS: predniSONE 20 mg tablet PO SCH (08:17)
[2019-07-27] MEDS: buPROPion 75mg tablet PO SCH ×2 (08:17→19:52)
[2019-07-27] MEDS: pantoprazole 40mg Tablet.DR PO SCH (08:18)
[2019-07-27] MEDS: busPIRone 5mg tablet PO SCH ×3 (08:18→20:02)
[2019-07-27] MEDS: potassium Cl 20 mEq SR tablet PO PRN ×3 (08:18→16:21)
[2019-07-27] MEDS: magnesium oxide 400mg tablet PO SCH (08:18)
[2019-07-27] MEDS: apixaban 2.5mg tablet PO SCH ×2 (08:19→19:52)
[2019-07-27] MEDS: aripiprazole 5mg tablet PO SCH (08:19)
[2019-07-27] MEDS: benztropine 1mg tablet PO SCH ×2 (08:19→19:52)
[2019-07-27] MEDS: atorvastatin 20mg tablet PO SCH (08:19)
[2019-07-27] MEDS: liothyronine sod 5mcg tablet PO SCH (08:19)
[2019-07-27] MEDS: flecainide 50mg tablet NG SCH ×2 (08:20→19:52)
[2019-07-27] MEDS: docusate sodium 100mg/10ml UD cup PO SCH (08:20)
[2019-07-27] MEDS: furosemide 40 MG/4 ML oral solution UD cup PO SCH (08:20)
[2019-07-27] MEDS: budesonide 0.5mg/2ml UD nebule IH SCH ×2 (09:09→19:47)
[2019-07-27 11:00] VITALS: BP 134/74
--- NOTE | 2019-07-27 11:04 | NUR ---
Called the patients , Tyrell Morelos, and updated him on the patients plan of care. Tyrell stated that the patients baseline mental status is confused. Tyrell wanted to know if the patient should have a BIPAP machine at home, I will send a message to case management. Tyrell stated that the patient received her flu shot this year and is up to date on her pneumococcal vaccines. Will continue to monitor the patient closely.
[2019-07-27] MEDS: magnesium hydroxide 30ml (MOM) UD suspension NG PRN (12:18)
[2019-07-27] MEDS ORDERED: azithromycin 250mg tablet PO ONE (13:10)
--- NOTE | 2019-07-27 14:21 | NUR ---
Patients , Tyrell, called and was transferred into the patients room so they could talk to each other.
[2019-07-27 15:00] VITALS: BP 125/71
--- NOTE | 2019-07-27 18:05 | NUR ---
Problems reprioritized. Patient report given, questions answered & plan of care reviewed with Tracy OSCAR.
--- NOTE | 2019-07-27 18:22 | NUR ---
Patient in room PCU 3025. I have received report from Shannan OSCAR and had the opportunity to ask questions and assume patient care.
[2019-07-27 19:45] VITALS: BP 139/82
[2019-07-27 22:54] VITALS: BP 131/79
[2019-07-28] VITALS (7 sets, daily range): BP systolic 105–181; BP diastolic 56–89
[2019-07-28] MEDS: ipratropium/albuterol 3ml nebule NEB SCH ×6 (02:50→23:09)
--- NOTE | 2019-07-28 06:37 | NUR ---
Problems reprioritized. Patient report given, questions answered & plan of care reviewed with Danielle OSCAR.
--- NOTE | 2019-07-28 06:55 | NUR ---
Patient in room PCU 3025. I have received report from Tracy OSCAR and had the opportunity to ask questions and assume patient care.
--- NOTE | 2019-07-28 06:55 | NUR ---
Patient in room PCU 3025. I have received report from Jen OSCAR and had the opportunity to ask questions and assume patient care. Patient awake in bed and in no acute distress. Will continue to monitor.
[2019-07-28] MEDS: budesonide 0.5mg/2ml UD nebule IH SCH ×2 (07:08→18:56)
[2019-07-28] MEDS ORDERED: azithromycin 250mg tablet PO SCH (08:00)
[2019-07-28] MEDS: docusate sodium 100mg/10ml UD cup PO SCH (08:40)
[2019-07-28] MEDS: liothyronine sod 5mcg tablet PO SCH (08:42)
[2019-07-28] MEDS: buPROPion 75mg tablet PO SCH ×2 (08:42→20:10)
[2019-07-28] MEDS: busPIRone 5mg tablet PO SCH ×3 (08:43→20:11)
[2019-07-28] MEDS: magnesium oxide 400mg tablet PO SCH (08:43)
[2019-07-28] MEDS: benztropine 1mg tablet PO SCH ×2 (08:43→20:08)
[2019-07-28] MEDS: flecainide 50mg tablet NG SCH ×2 (08:43→20:00)
[2019-07-28] MEDS: carVEDilol 3.125mg tablet PO SCH ×2 (08:44→20:10)
[2019-07-28] MEDS: pantoprazole 40mg Tablet.DR PO SCH (08:44)
[2019-07-28] MEDS: atorvastatin 20mg tablet PO SCH (08:44)
[2019-07-28] MEDS: predniSONE 20 mg tablet PO SCH (08:44)
[2019-07-28] MEDS: apixaban 2.5mg tablet PO SCH ×2 (08:44→20:08)
[2019-07-28] MEDS: aripiprazole 5mg tablet PO SCH (08:44)
[2019-07-28] MEDS: levoTHYROXINE sod inj. 100mcg/5 ml vial IV SCH (08:45)
[2019-07-28] MEDS: VILAZODONE HCL 40 MG NG SCH (08:46)
[2019-07-28] MEDS: K, MAG and/or Phos replacement - Verify level? MC SCH (08:46)
--- NOTE | 2019-07-28 09:15 | NUR ---
Attempted to put patient on bipap per recommendation from RT. Patient experienced acute nosebleed and primary RN was able to stop bleeding. Patient on 3.5 L nasal cannula now, will continue to monitor. O2 91%
[2019-07-28 09:34] LABS: BASOPHILS % (AUTO) 0.3 % (0-1); EOSINOPHILS % (AUTO) 0.1 % (0-6); HEMATOCRIT 39.5 % (35.0-45.0); HEMOGLOBIN 12.6 g/dl (12.0-16.0); LYMPHOCYTES # (AUTO) 0.2 X10'3 (1.1-4.8); LYMPHOCYTES % (AUTO) 1.1 % (21-51); MEAN CORPUSCULAR HEMOGLOBIN 27.8 PG (27.0-31.0); MEAN CORPUSCULAR HGB CONC 31.9 g/dL (33.0-36.5); MEAN CORPUSCULAR VOLUME 87.1 FL (78-98); MEAN PLATELET VOLUME 8.9 FL (7.4-10.4); MONOCYTES % (AUTO) 5.5 % (2-12); NEUTROPHILS # (AUTO) 17.8 X10'3 (1.8-7.7); PLATELET COUNT 154 X10'3 (140-440); RED BLOOD COUNT 4.54 X10'6 (4.20-5.60); WHITE BLOOD COUNT 19.1 X10'3 (4.5-11.0)
[2019-07-28 09:48] LABS: ALANINE AMINOTRANSFERASE 21 U/L (12-78); ALBUMIN 2.2 G/DL (3.4-5.0); ALBUMIN/GLOBULIN RATIO 0.6 (1.1-1.5); ALKALINE PHOSPHATASE 64 IU/L (46-116); ANION GAP 5 (8-16); ASPARTATE AMINO TRANSFERASE 17 U/L (10-37); BILIRUBIN,TOTAL 1.2 MG/DL (0.1-1.0); BLOOD UREA NITROGEN 24 MG/DL (7-18); BUN/CREATININE RATIO 26.4 (6.6-38.0); CALCIUM 9.5 MG/DL (8.5-10.1); CHLORIDE 115 MMOL/L (99-107); CREATININE 0.91 MG/DL (0.40-0.90); GLUCOSE 145 MG/DL (70-104); MAGNESIUM 2.4 MG/DL (1.5-2.4); PHOSPHORUS 2.8 MG/DL (2.3-4.5); POTASSIUM 4.2 MMOL/L (3.5-5.1); SODIUM 153 MMOL/L (135-145); TOTAL CARBON DIOXIDE 32.6 MMOL/L (24-32); TOTAL PROTEIN 6.1 G/DL (6.4-8.2); eGFR 61 ML/MIN
--- NOTE | 2019-07-28 11:43 | NUR ---
New order from Dr. Jones: ABG and CXR.
[2019-07-28 12:01] LABS: ABG BASE EXCESS 5.5 mmol/L (-2.0-3.0); ABG HCO3 30.5 mmol/L (22.0-26.0); ABG OXYGEN SATURATION 92.2 % (95-98); ABG PCO2 (T) 45.6 mmHg (35.0-45.0); ABG PH (T) 7.443 (7.350-7.450); ABG PO2 (T) 60.3 mmHg (83-108); ALLEN'S TEST POSITIVE; FCOHb 0.5 % (0.5-1.5); FMetHb 0.1 % (0.3-1.12); FO2Hb 91.6 % (94-100); RESPIRATORY RATE 12 b/min; TOTAL HEMOGLOBIN 13.6 G/dl (12.0-16.0)
--- NOTE | 2019-07-28 13:00 | NUR ---
Bladder scanned patient showed 117 ml.
--- NOTE | 2019-07-28 13:10 | NUR ---
Patient on bipap, resting in no apparent distress
--- NOTE | 2019-07-28 15:30 | NUR ---
Bladder scanned showed 77 ml. Did a complete bed change with two saturated dry flows, unable to quantify urine output.
[2019-07-28] MEDS: potassium Cl 20 mEq SR tablet PO PRN (15:34)
[2019-07-28] MEDS: potassium CL 10mEq/100ml bag 100 ML IV PRN ×2 (16:09→17:06)
[2019-07-28] MEDS ORDERED: furosemide 40mg/4ml inj IV ONE (17:40)
[2019-07-28] MEDS ORDERED: ceftazidime 1000mg in D5W 50ml 50 ML IV SCH (18:20)
--- NOTE | 2019-07-28 18:25 | NUR ---
Problems reprioritized. Patient report given, questions answered & plan of care reviewed with Latonia OSCAR. Patient stable at transfer of care.
--- NOTE | 2019-07-28 18:26 | NUR ---
Problems reprioritized. Patient report given, questions answered & plan of care reviewed with DAYNE Lincoln.
--- NOTE | 2019-07-28 18:27 | NUR ---
Orientee documentation: I have reviewed and agree with all interventions, assessments performed and documented by DAYNE Yepez. Orientee Medication Administration: For this medication-pass time frame, all medication were reviewed, dispensed, administered and documented per hospital policy by DAYNE Yepez.
--- NOTE | 2019-07-28 18:30 | NUR ---
Patient in room PCU 3025. I have received report from Danielle OSCAR and Marleni RN and had the opportunity to ask questions and assume patient care.
--- NOTE | 2019-07-28 19:10 | NUR ---
pt pulling at lines, trying to remove bipap tried to redirect pt however pt is not listening and continues to repeat the events, notified provider, morphine is ordered PRN to help with the breathing as pt seems agitated and RR is high, sitter in room now to help watch pt as her O2 can drop without the bipap on, will continue to monitor pt closely
[2019-07-28] MEDS ORDERED: morphine 2 MG/ML inj. syringe IV PRN (19:40)
[2019-07-28] MEDS: VANCOmycin 1250MG/NS 250ml Bag 250 ML IV SCH (20:08)
--- NOTE | 2019-07-28 22:15 | NUR ---
pt has not urinated, bladder scanned pt and showed 745mL, straight cathed pt and 1L of bright red urine was taken out, notified provider of this finding, labs and UA will be done, will continue to monitor pt
--- NOTE | 2019-07-28 22:15 | NUR ---
pt had 745mL
[2019-07-29] VITALS (7 sets, daily range): BP systolic 98–129; BP diastolic 51–85
[2019-07-29 00:10] LABS: BASOPHILS # (AUTO) 0.1 X10'3 (0-0.2); BASOPHILS % (AUTO) 0.3 % (0-1); EOSINOPHILS % (AUTO) 0 % (0-6); HEMATOCRIT 40.5 % (35.0-45.0); HEMOGLOBIN 12.7 g/dl (12.0-16.0); LYMPHOCYTES # (AUTO) 0.2 X10'3 (1.1-4.8); LYMPHOCYTES % (AUTO) 0.9 % (21-51); MEAN CORPUSCULAR HEMOGLOBIN 27.3 PG (27.0-31.0); MEAN CORPUSCULAR HGB CONC 31.3 g/dL (33.0-36.5); MEAN CORPUSCULAR VOLUME 87.4 FL (78-98); MONOCYTES # (AUTO) 1.2 X10'3 (0-0.9); MONOCYTES % (AUTO) 5.2 % (2-12); NEUTROPHILS # (AUTO) 21.8 X10'3 (1.8-7.7); NEUTROPHILS % (AUTO) 93.6 % (42-75); PLATELET COUNT 166 X10'3 (140-440); RED BLOOD COUNT 4.63 X10'6 (4.20-5.60); RED CELL DISTRIBUTION WIDTH 15.4 % (11.5-14.5); WHITE BLOOD COUNT 23.2 X10'3 (4.5-11.0)
[2019-07-29 00:22] LABS: PARTIAL THROMBOPLASTIN TIME 26 SECONDS (22-32)
[2019-07-29] MEDS: CEFTAZIDIME IV SCH ×4 (00:23→23:44)
[2019-07-29] MEDS: NORMAL SALINE IV SCH ×4 (00:23→23:44)
--- NOTE | 2019-07-29 02:30 | NUR ---
bladder scanned pt, 321mL of urine in bladder, spoke with provider earlier and they stated if on the next time i bladder scanned the pt and they needed straight cath to place a jeong instead, a 16F jeong was placed. pt tolerated the procedure, good urine output since, will continue to monitor pt
[2019-07-29 02:44] LABS: CLARITY,URINE TURBID (Clear); COLOR,URINE YELLOW (Yellow); GLUCOSE, URINE NEGATIVE (Neg); KETONES,URINE 15 mg/dl (Neg); LEUKOCYTE ESTERASE ,URINE TRACE (Neg); NITRITES, URINE NEGATIVE (Neg); OCCULT BLOOD,URINE LARGE (Neg); PH,URINE 5.5 (4.8-8.0); PROTEIN,URINE 30 mg/dl (Neg); UROBILINOGEN,URINE 0.2 E.U/dL (0.2-1.0)
[2019-07-29] MEDS: ipratropium/albuterol 3ml nebule NEB SCH ×6 (02:59→23:53)
[2019-07-29 03:23] LABS: UA COLLECTION TYPE FOLEY CATH
[2019-07-29 03:26] LABS: AMORPHOUS URATES 3+; BACTERIA,URINE NONE SEEN /HPF (Neg); RBC,URINE TNTC /HPF (0-2); SQUAMOUS EPITHELIAL CELL,UR FEW /LPF (FEW)
[2019-07-29 05:24] LABS: BASOPHILS % (AUTO) 0.1 % (0-1); EOSINOPHILS % (AUTO) 0 % (0-6); HEMATOCRIT 38.8 % (35.0-45.0); HEMOGLOBIN 12.1 g/dl (12.0-16.0); LYMPHOCYTES # (AUTO) 0.2 X10'3 (1.1-4.8); LYMPHOCYTES % (AUTO) 1.1 % (21-51); MEAN CORPUSCULAR HEMOGLOBIN 27.3 PG (27.0-31.0); MEAN CORPUSCULAR HGB CONC 31.3 g/dL (33.0-36.5); MEAN CORPUSCULAR VOLUME 87.2 FL (78-98); MEAN PLATELET VOLUME 9.1 FL (7.4-10.4); MONOCYTES # (AUTO) 0.9 X10'3 (0-0.9); MONOCYTES % (AUTO) 4.6 % (2-12); NEUTROPHILS # (AUTO) 19.1 X10'3 (1.8-7.7); NEUTROPHILS % (AUTO) 94.2 % (42-75); PLATELET COUNT 152 X10'3 (140-440); RED BLOOD COUNT 4.44 X10'6 (4.20-5.60); RED CELL DISTRIBUTION WIDTH 15.1 % (11.5-14.5); WHITE BLOOD COUNT 20.3 X10'3 (4.5-11.0)
[2019-07-29 05:45] LABS: ALANINE AMINOTRANSFERASE 17 U/L (12-78); ALBUMIN 1.9 G/DL (3.4-5.0); ALBUMIN/GLOBULIN RATIO 0.5 (1.1-1.5); ALKALINE PHOSPHATASE 70 IU/L (46-116); ANION GAP 8 (8-16); ASPARTATE AMINO TRANSFERASE 18 U/L (10-37); BILIRUBIN,TOTAL 0.9 MG/DL (0.1-1.0); BLOOD UREA NITROGEN 28 MG/DL (7-18); CALCIUM 9.3 MG/DL (8.5-10.1); CHLORIDE 117 MMOL/L (99-107); GLUCOSE 141 MG/DL (70-104); MAGNESIUM 2.4 MG/DL (1.5-2.4); PHOSPHORUS 3.4 MG/DL (2.3-4.5); POTASSIUM 3.9 MMOL/L (3.5-5.1); TOTAL CARBON DIOXIDE 32.7 MMOL/L (24-32); TOTAL PROTEIN 5.8 G/DL (6.4-8.2); eGFR 55 ML/MIN
[2019-07-29 05:53] LABS: SODIUM 158 MMOL/L (135-145)
--- NOTE | 2019-07-29 05:57 | NUR ---
critical NA of 158 this AM, notified April, will continue to monitor pt
--- NOTE | 2019-07-29 06:19 | NUR ---
Patient in room PCU 3025. I have received report from Latonia OSCAR and had the opportunity to ask questions and assume patient care. Patient asleep in bed. BiPap 50% FiO2. Sitter present bedside.
--- NOTE | 2019-07-29 06:19 | NUR ---
Problems reprioritized. Patient report given, questions answered & plan of care reviewed with Danielle Guerra and Marleni RN.
--- NOTE | 2019-07-29 06:32 | NUR ---
Patient in room PCU 3025. I have received report from Latonia OSCAR and had the opportunity to ask questions and assume patient care. Patient was resting in bed with bipap at 50%, no apparent distress. Will continue to monitor.
[2019-07-29] MEDS ORDERED: dextrose 5%-water 1,000 ML IV SCH (06:35)
[2019-07-29] MEDS: budesonide 0.5mg/2ml UD nebule IH SCH ×2 (07:00→19:34)
[2019-07-29] MEDS: levoTHYROXINE sod inj. 100mcg/5 ml vial IV SCH (07:41)
[2019-07-29] MEDS: VANCOmycin 1250MG/NS 250ml Bag 250 ML IV SCH ×2 (07:50→19:14)
[2019-07-29] MEDS: docusate sodium 100mg/10ml UD cup PO SCH ×2 (08:00→08:27)
[2019-07-29] MEDS: liothyronine sod 5mcg tablet PO SCH ×2 (08:00→08:25)
[2019-07-29] MEDS: VILAZODONE HCL 40 MG NG SCH ×2 (08:00→08:25)
[2019-07-29] MEDS: benztropine 1mg tablet PO SCH ×2 (08:00→08:24)
[2019-07-29] MEDS: magnesium oxide 400mg tablet PO SCH ×2 (08:00→08:24)
[2019-07-29] MEDS: busPIRone 5mg tablet PO SCH ×3 (08:00→13:00)
[2019-07-29] MEDS: aripiprazole 5mg tablet PO SCH ×2 (08:00→08:24)
[2019-07-29] MEDS: K, MAG and/or Phos replacement - Verify level? MC SCH (08:00)
[2019-07-29] MEDS: buPROPion 75mg tablet PO SCH ×2 (08:00→08:29)
[2019-07-29] MEDS: flecainide 50mg tablet NG SCH (08:18)
[2019-07-29] MEDS: predniSONE 20 mg tablet PO SCH (08:19)
[2019-07-29] MEDS: apixaban 2.5mg tablet PO SCH (08:19)
[2019-07-29] MEDS: atorvastatin 20mg tablet PO SCH (08:19)
[2019-07-29] MEDS: pantoprazole 40mg Tablet.DR PO SCH (08:19)
[2019-07-29] MEDS: carVEDilol 3.125mg tablet PO SCH (08:19)
--- NOTE | 2019-07-29 12:07 | NUR ---
Reassessment: Pt PO poor overall this admit following extubation. Initially 25-50% avg first 3 days following extubation now 0% past 24 hours not meeting needs. Pt remains SOB w/ bilateral infiltrates and ALOC AOx1 both likely impacting PO. Na 158 today receiving DEX started this AM. Pt able to swallow some pills but not all meds this AM on pureed/nectar thick diet per HEALTH PRACTICE MANAGER. Trial thickened magic cup shake BIDBD added for additional protein/kcal needs given poor PO hx. LBM 4/6. Will continue to monitor. Rec: 1. Continue pureed food with nectar thick liquids per ST recs 2. trial thickened magic cup shake BIDBD 3. Routine bowel care 4. monitor for ONS needs once PO improves 5. wt per rx Addendum: 07/29/19 at [address] Amended: Links added.
--- NOTE | 2019-07-29 15:16 | NUR ---
TF Consult: Pt unable to coordinate swallow w/ ALOC to remain NPO at this time pending corpak placement per RN. TF recs below given pt needs; will use admit scaled wt for recs given wt fluctuation r/t fluid balance this admit. Will monitor for TF tolerance. Rec: 1. Corpak feeds to start today per MD using Glucerna 1.2 at 70ml/hr goal; to provide 1680ml fluid, 1361ml free water, 2016kcals, and 101g protein. 2. additional free water flush 200ml Q4 3. PALB Q /; daily wts 4. Routine bowel care 5. monitor for TF tolerance Addendum: 07/29/19 at [address] Amended: Links added.
--- NOTE | 2019-07-29 15:30 | NUR ---
Corepak placed, patient tolerated procedure, able to maintain O2 saturation on 15 L blowby face mask.
[2019-07-29] MEDS ORDERED: acetaminophen 325mg/10.15ml oral unit dose solution CORPAK PRN ×2 (16:08)
[2019-07-29] MEDS ORDERED: magnesium hydroxide 30ml (MOM) UD suspension CORPAK PRN (16:15)
[2019-07-29] MEDS ORDERED: POTASSIUM BICARB 20meq eff tab 20 MEQ TABLET.EFF CORPAK PRN (16:18)
--- NOTE | 2019-07-29 17:05 | NUR ---
Radiology verified Corepak tube placement, Dr. Jones notified, we will begin tube feeding.
[2019-07-29] MEDS ORDERED: dextrose ORAL solution 15 GM/59 ML bottle PO PRN ×2 (17:20)
[2019-07-29] MEDS ORDERED: dextrose 50%-water 50ml dispensing syringe IV PRN ×2 (17:20)
[2019-07-29] MEDS ORDERED: insulin regular, human U-100 3ml vial - multi-dose SQ SCH (17:20)
[2019-07-29] MEDS ORDERED: dextrose ORAL solution 15 GM/59 ML bottle CORPAK PRN ×2 (17:22→17:23)
[2019-07-29 18:00] LABS: ALBUMIN 1.9 G/DL (3.4-5.0); ANION GAP 7 (8-16); BLOOD UREA NITROGEN 26 MG/DL (7-18); BUN/CREATININE RATIO 27.1 (6.6-38.0); CALCIUM 9.1 MG/DL (8.5-10.1); CHLORIDE 114 MMOL/L (99-107); CREATININE 0.96 MG/DL (0.40-0.90); GLUCOSE 161 MG/DL (70-104); POTASSIUM 3.5 MMOL/L (3.5-5.1); SODIUM 154 MMOL/L (135-145); TOTAL CARBON DIOXIDE 33.4 MMOL/L (24-32); eGFR 58 ML/MIN
--- NOTE | 2019-07-29 18:27 | NUR ---
Problems reprioritized. Patient report given, questions answered & plan of care reviewed with Ashley OSCAR. Patient on Bipap, stable, all needs met.
--- NOTE | 2019-07-29 18:28 | NUR ---
Patient in room PCU 3025. I have received report from Danielle OSCAR and Marleni RN and had the opportunity to ask questions and assume patient care.
--- NOTE | 2019-07-29 18:34 | NUR ---
Problems reprioritized. Patient report given, questions answered & plan of care reviewed with Ashley OSCAR. Patient stable at transfer of care.
--- NOTE | 2019-07-29 18:36 | NUR ---
Orientee documentation: I have reviewed and agree with all interventions, assessments performed and documented by Marleni OSCAR. Orientee Medication Administration: For this medication-pass time frame, all medication were reviewed, dispensed, administered and documented per hospital policy by DAYNE Yepez.
[2019-07-29] MEDS: carVEDilol 3.125mg tablet CORPAK SCH (20:13)
[2019-07-29] MEDS: lactobacillus rhamnosus 10,000 MMU CELLS/CAPSULE CORPAK SCH (20:13)
[2019-07-29] MEDS: flecainide 50mg tablet CORPAK SCH (20:13)
[2019-07-29] MEDS: buPROPion 75mg tablet CORPAK SCH (20:13)
[2019-07-29] MEDS: benztropine 1mg tablet CORPAK SCH (20:13)
[2019-07-29] MEDS: famotidine 20mg tablet CORPAK SCH (20:14)
[2019-07-29] MEDS: busPIRone 5mg tablet CORPAK SCH (20:14)
[2019-07-29] MEDS: apixaban 2.5mg tablet CORPAK SCH (20:14)
[2019-07-30] VITALS (9 sets, daily range): BP systolic 106–120; BP diastolic 51–86
[2019-07-30] MEDS: ipratropium/albuterol 3ml nebule NEB SCH ×6 (03:48→23:47)
[2019-07-30 05:30] LABS: BASOPHILS % (AUTO) 0.1 % (0-1); EOSINOPHILS % (AUTO) 0.1 % (0-6); HEMATOCRIT 35.7 % (35.0-45.0); HEMOGLOBIN 11.1 g/dl (12.0-16.0); LYMPHOCYTES # (AUTO) 0.2 X10'3 (1.1-4.8); LYMPHOCYTES % (AUTO) 1.2 % (21-51); MEAN CORPUSCULAR HEMOGLOBIN 27.2 PG (27.0-31.0); MEAN CORPUSCULAR HGB CONC 31.1 g/dL (33.0-36.5); MEAN CORPUSCULAR VOLUME 87.3 FL (78-98); MONOCYTES # (AUTO) 0.8 X10'3 (0-0.9); NEUTROPHILS # (AUTO) 18.7 X10'3 (1.8-7.7); NEUTROPHILS % (AUTO) 94.6 % (42-75); PLATELET COUNT 134 X10'3 (140-440); RED BLOOD COUNT 4.09 X10'6 (4.20-5.60); RED CELL DISTRIBUTION WIDTH 15.1 % (11.5-14.5); WHITE BLOOD COUNT 19.7 X10'3 (4.5-11.0)
[2019-07-30 05:37] LABS: ALANINE AMINOTRANSFERASE 32 U/L (12-78); ALBUMIN 1.7 G/DL (3.4-5.0); ALBUMIN/GLOBULIN RATIO 0.4 (1.1-1.5); ALKALINE PHOSPHATASE 71 IU/L (46-116); ANION GAP 1 (8-16); ASPARTATE AMINO TRANSFERASE 39 U/L (10-37); BILIRUBIN,TOTAL 0.8 MG/DL (0.1-1.0); BLOOD UREA NITROGEN 28 MG/DL (7-18); BUN/CREATININE RATIO 30.8 (6.6-38.0); CALCIUM 9.2 MG/DL (8.5-10.1); CHLORIDE 119 MMOL/L (99-107); CREATININE 0.91 MG/DL (0.40-0.90); GLUCOSE 150 MG/DL (70-104); MAGNESIUM 2.3 MG/DL (1.5-2.4); PHOSPHORUS 2.4 MG/DL (2.3-4.5); POTASSIUM 3.2 MMOL/L (3.5-5.1); SODIUM 153 MMOL/L (135-145); TOTAL CARBON DIOXIDE 32.8 MMOL/L (24-32); TOTAL PROTEIN 5.5 G/DL (6.4-8.2); eGFR 61 ML/MIN
--- NOTE | 2019-07-30 06:12 | NUR ---
Problems reprioritized. Patient report given, questions answered & plan of care reviewed with Jordyn OSCAR.
--- NOTE | 2019-07-30 06:41 | NUR ---
Patient in room PCU 3023. I have received report from Ashley OSCAR and had the opportunity to ask questions and assume patient care. Pt was sleeping with no distress in bed on bipap 50%, O2 sat 94%, with tube feeding at 40 ml/hr.
[2019-07-30] MEDS: NORMAL SALINE IV SCH ×2 (08:25→15:45)
[2019-07-30] MEDS: CEFTAZIDIME IV SCH ×2 (08:25→15:45)
[2019-07-30] MEDS: benztropine 1mg tablet CORPAK SCH ×2 (08:25→19:41)
[2019-07-30] MEDS: POTASSIUM BICARB 20meq eff tab 20 MEQ TABLET.EFF CORPAK PRN ×2 (08:26→17:55)
[2019-07-30] MEDS: levoTHYROXINE sod inj. 100mcg/5 ml vial IV SCH (08:26)
[2019-07-30] MEDS: magnesium oxide 400mg tablet CORPAK SCH (08:27)
[2019-07-30] MEDS: atorvastatin 20mg tablet CORPAK SCH (08:27)
[2019-07-30] MEDS: lactobacillus rhamnosus 10,000 MMU CELLS/CAPSULE CORPAK SCH ×2 (08:28→19:40)
[2019-07-30] MEDS: predniSONE 20 mg tablet CORPAK SCH (08:28)
[2019-07-30] MEDS: docusate sodium 100mg/10ml UD cup CORPAK SCH (08:28)
[2019-07-30] MEDS: busPIRone 5mg tablet CORPAK SCH ×3 (08:28→21:36)
[2019-07-30] MEDS: aripiprazole 5mg tablet CORPAK SCH (08:28)
[2019-07-30] MEDS: flecainide 50mg tablet CORPAK SCH ×2 (08:29→19:41)
[2019-07-30] MEDS: carVEDilol 3.125mg tablet CORPAK SCH ×2 (08:29→20:00)
[2019-07-30] MEDS: buPROPion 75mg tablet CORPAK SCH ×2 (08:29→19:41)
[2019-07-30] MEDS: famotidine 20mg tablet CORPAK SCH ×2 (08:29→19:41)
[2019-07-30] MEDS: liothyronine sod 5mcg tablet CORPAK SCH (08:29)
[2019-07-30] MEDS: apixaban 2.5mg tablet CORPAK SCH ×2 (08:29→19:41)
[2019-07-30] MEDS: K, MAG and/or Phos replacement - Verify level? MC SCH (08:31)
[2019-07-30] MEDS: VILAZODONE HCL 40 MG CORPAK SCH (08:54)
[2019-07-30] MEDS: VANCOmycin 1250MG/NS 250ml Bag 250 ML IV SCH ×2 (08:55→19:40)
[2019-07-30] MEDS: budesonide 0.5mg/2ml UD nebule IH SCH ×2 (08:59→19:52)
--- NOTE | 2019-07-30 09:30 | NUR ---
Patient has reddened warm area on left cheek. Bipap readjusted and temperature check reads 99.6, will continue to monitor.
--- NOTE | 2019-07-30 14:00 | NUR ---
Corepak came out several inches during bed change. Cannula intact.
--- NOTE | 2019-07-30 14:30 | NUR ---
New Core Sylvain successful placed, awaiting Xray to confirm.
--- NOTE | 2019-07-30 18:23 | NUR ---
Problems reprioritized. Patient report given, questions answered & plan of care reviewed with Latonia OSCAR.
[2019-07-31] VITALS (7 sets, daily range): BP systolic 111–120; BP diastolic 56–84
[2019-07-31] MEDS: NORMAL SALINE IV SCH ×3 (00:45→16:20)
[2019-07-31] MEDS: CEFTAZIDIME IV SCH ×3 (00:45→16:20)
[2019-07-31] MEDS: ipratropium/albuterol 3ml nebule NEB SCH ×6 (03:49→23:54)
[2019-07-31] MEDS ORDERED: VANCOMYCIN LEVEL IV ONE (06:30)
--- NOTE | 2019-07-31 06:30 | NUR ---
Patient in room PCU 3023B. I have received report from Latonia OSCAR and had the opportunity to ask questions and assume patient care.
--- NOTE | 2019-07-31 06:43 | NUR ---
Problems reprioritized. Patient report given, questions answered & plan of care reviewed with Maxine OSCAR.
[2019-07-31] MEDS: VANCOmycin 1250MG/NS 250ml Bag 250 ML IV SCH ×3 (07:00→21:10)
[2019-07-31] MEDS: budesonide 0.5mg/2ml UD nebule IH SCH ×2 (07:13→19:36)
[2019-07-31 07:41] LABS: BASOPHILS % (AUTO) 0.2 % (0-1); EOSINOPHILS # (AUTO) 0.1 X10'3 (0-0.9); EOSINOPHILS % (AUTO) 0.9 % (0-6); HEMATOCRIT 35.7 % (35.0-45.0); HEMOGLOBIN 11.3 g/dl (12.0-16.0); LYMPHOCYTES # (AUTO) 0.4 X10'3 (1.1-4.8); LYMPHOCYTES % (AUTO) 2.8 % (21-51); MEAN CORPUSCULAR HEMOGLOBIN 27.4 PG (27.0-31.0); MEAN CORPUSCULAR HGB CONC 31.7 g/dL (33.0-36.5); MEAN CORPUSCULAR VOLUME 86.4 FL (78-98); MEAN PLATELET VOLUME 9.3 FL (7.4-10.4); MONOCYTES # (AUTO) 0.6 X10'3 (0-0.9); NEUTROPHILS # (AUTO) 13.9 X10'3 (1.8-7.7); NEUTROPHILS % (AUTO) 92.1 % (42-75); PLATELET COUNT 125 X10'3 (140-440); RED BLOOD COUNT 4.14 X10'6 (4.20-5.60); WHITE BLOOD COUNT 15.1 X10'3 (4.5-11.0)
[2019-07-31] MEDS: buPROPion 75mg tablet CORPAK SCH ×2 (08:00→21:12)
[2019-07-31] MEDS: K, MAG and/or Phos replacement - Verify level? MC SCH (08:00)
[2019-07-31] MEDS: docusate sodium 100mg/10ml UD cup CORPAK SCH (08:00)
[2019-07-31 08:32] LABS: ALANINE AMINOTRANSFERASE 45 U/L (12-78); ALBUMIN 1.5 G/DL (3.4-5.0); ALBUMIN/GLOBULIN RATIO 0.4 (1.1-1.5); ALKALINE PHOSPHATASE 74 IU/L (46-116); ANION GAP 2 (8-16); ASPARTATE AMINO TRANSFERASE 43 U/L (10-37); BILIRUBIN,TOTAL 0.5 MG/DL (0.1-1.0); BLOOD UREA NITROGEN 28 MG/DL (7-18); BUN/CREATININE RATIO 32.6 (6.6-38.0); CALCIUM 8.8 MG/DL (8.5-10.1); CHLORIDE 117 MMOL/L (99-107); CREATININE 0.86 MG/DL (0.40-0.90); GLUCOSE 145 MG/DL (70-104); MAGNESIUM 2.2 MG/DL (1.5-2.4); PHOSPHORUS 1.8 MG/DL (2.3-4.5); POTASSIUM 3.1 MMOL/L (3.5-5.1); PREALBUMIN 8.3 MG/DL (19-36); SODIUM 152 MMOL/L (135-145); TOTAL CARBON DIOXIDE 33.1 MMOL/L (24-32); TOTAL PROTEIN 5.3 G/DL (6.4-8.2); VANCOMYCIN,TROUGH 19.4 UG/ML (6.0-14.0); eGFR 66 ML/MIN
[2019-07-31] MEDS: flecainide 50mg tablet CORPAK SCH ×2 (09:49→21:12)
[2019-07-31] MEDS: liothyronine sod 5mcg tablet CORPAK SCH (09:50)
[2019-07-31] MEDS: atorvastatin 20mg tablet CORPAK SCH (09:50)
[2019-07-31] MEDS: aripiprazole 5mg tablet CORPAK SCH (09:50)
[2019-07-31] MEDS: apixaban 2.5mg tablet CORPAK SCH ×2 (09:50→21:11)
[2019-07-31] MEDS: predniSONE 20 mg tablet CORPAK SCH (09:50)
[2019-07-31] MEDS: lactobacillus rhamnosus 10,000 MMU CELLS/CAPSULE CORPAK SCH ×2 (09:50→21:10)
[2019-07-31] MEDS: famotidine 20mg tablet CORPAK SCH ×2 (09:50→21:12)
[2019-07-31] MEDS: magnesium oxide 400mg tablet CORPAK SCH (09:50)
[2019-07-31] MEDS: carVEDilol 3.125mg tablet CORPAK SCH ×2 (09:51→21:10)
[2019-07-31] MEDS: busPIRone 5mg tablet CORPAK SCH ×3 (09:51→21:10)
[2019-07-31] MEDS: VILAZODONE HCL 40 MG CORPAK SCH (09:51)
[2019-07-31] MEDS: benztropine 1mg tablet CORPAK SCH ×2 (09:51→21:12)
[2019-07-31] MEDS: levoTHYROXINE sod inj. 100mcg/5 ml vial IV SCH (09:58)
[2019-07-31] MEDS: POTASSIUM BICARB 20meq eff tab 20 MEQ TABLET.EFF CORPAK PRN ×2 (12:29→21:12)
--- NOTE | 2019-07-31 13:31 | NUR ---
Spoke with Dr. Jones. Notified of vanco trough 19.4, okay to hold AM dose. Also notified of phos 2.1, order to not replace phos.
--- NOTE | 2019-07-31 18:44 | NUR ---
Problems reprioritized. Patient report given, questions answered & plan of care reviewed with Salena RN. Patient sitting up in bed, awake, no signs of distress
--- NOTE | 2019-07-31 18:47 | NUR ---
Patient in room PCU 3023. I have received report from Maxine Zavaleta RN and had the opportunity to ask questions and assume patient care.
[2019-08-01] MEDS: NORMAL SALINE IV SCH ×3 (00:09→15:57)
[2019-08-01] MEDS: CEFTAZIDIME IV SCH ×3 (00:09→15:57)
[2019-08-01 02:00] VITALS: BP 133/67
[2019-08-01] MEDS: ipratropium/albuterol 3ml nebule NEB SCH ×5 (03:00→19:09)
[2019-08-01 05:32] LABS: BASOPHILS % (AUTO) 0.2 % (0-1); EOSINOPHILS # (AUTO) 0.1 X10'3 (0-0.9); EOSINOPHILS % (AUTO) 0.7 % (0-6); HEMATOCRIT 34.5 % (35.0-45.0); HEMOGLOBIN 11.1 g/dl (12.0-16.0); LYMPHOCYTES # (AUTO) 0.4 X10'3 (1.1-4.8); LYMPHOCYTES % (AUTO) 3.2 % (21-51); MEAN CORPUSCULAR HEMOGLOBIN 27.6 PG (27.0-31.0); MEAN CORPUSCULAR HGB CONC 32.1 g/dL (33.0-36.5); MEAN CORPUSCULAR VOLUME 86.1 FL (78-98); MONOCYTES # (AUTO) 0.6 X10'3 (0-0.9); MONOCYTES % (AUTO) 4.7 % (2-12); NEUTROPHILS # (AUTO) 12.3 X10'3 (1.8-7.7); NEUTROPHILS % (AUTO) 91.2 % (42-75); PLATELET COUNT 131 X10'3 (140-440); RED BLOOD COUNT 4.01 X10'6 (4.20-5.60); RED CELL DISTRIBUTION WIDTH 14.8 % (11.5-14.5); WHITE BLOOD COUNT 13.5 X10'3 (4.5-11.0)
[2019-08-01 05:54] LABS: ALANINE AMINOTRANSFERASE 46 U/L (12-78); ALBUMIN 1.5 G/DL (3.4-5.0); ALBUMIN/GLOBULIN RATIO 0.4 (1.1-1.5); ALKALINE PHOSPHATASE 75 IU/L (46-116); ANION GAP 3 (8-16); ASPARTATE AMINO TRANSFERASE 23 U/L (10-37); BILIRUBIN,TOTAL 0.5 MG/DL (0.1-1.0); BLOOD UREA NITROGEN 26 MG/DL (7-18); BUN/CREATININE RATIO 31.7 (6.6-38.0); CALCIUM 8.9 MG/DL (8.5-10.1); CHLORIDE 115 MMOL/L (99-107); CREATININE 0.82 MG/DL (0.40-0.90); GLUCOSE 124 MG/DL (70-104); MAGNESIUM 2.3 MG/DL (1.5-2.4); PHOSPHORUS 2.5 MG/DL (2.3-4.5); POTASSIUM 3.7 MMOL/L (3.5-5.1); SODIUM 151 MMOL/L (135-145); TOTAL CARBON DIOXIDE 33.4 MMOL/L (24-32); TOTAL PROTEIN 5.2 G/DL (6.4-8.2); eGFR 69 ML/MIN
[2019-08-01 06:00] VITALS: BP 142/72
--- NOTE | 2019-08-01 06:15 | NUR ---
Patient in room PCU 3023. I have received report from Salena OSCAR and had the opportunity to ask questions and assume patient care.
[2019-08-01] MEDS: budesonide 0.5mg/2ml UD nebule IH SCH ×2 (07:30→19:09)
[2019-08-01] MEDS: docusate sodium 100mg/10ml UD cup CORPAK SCH (08:00)
[2019-08-01] MEDS: K, MAG and/or Phos replacement - Verify level? MC SCH (08:00)
[2019-08-01] MEDS: VILAZODONE HCL 40 MG CORPAK SCH (08:41)
[2019-08-01] MEDS: liothyronine sod 5mcg tablet CORPAK SCH (08:42)
[2019-08-01] MEDS: atorvastatin 20mg tablet CORPAK SCH (08:42)
[2019-08-01] MEDS: flecainide 50mg tablet CORPAK SCH ×2 (08:42→19:24)
[2019-08-01] MEDS: buPROPion 75mg tablet CORPAK SCH ×2 (08:42→19:24)
[2019-08-01] MEDS: busPIRone 5mg tablet CORPAK SCH ×2 (08:42→14:05)
[2019-08-01] MEDS: predniSONE 20 mg tablet CORPAK SCH (08:42)
[2019-08-01] MEDS: magnesium oxide 400mg tablet CORPAK SCH (08:43)
[2019-08-01] MEDS: apixaban 2.5mg tablet CORPAK SCH ×2 (08:43→19:24)
[2019-08-01] MEDS: levoTHYROXINE sod inj. 100mcg/5 ml vial IV SCH (08:43)
[2019-08-01] MEDS: carVEDilol 3.125mg tablet CORPAK SCH ×2 (08:43→19:24)
[2019-08-01] MEDS: aripiprazole 5mg tablet CORPAK SCH (08:43)
[2019-08-01] MEDS: lactobacillus rhamnosus 10,000 MMU CELLS/CAPSULE CORPAK SCH ×2 (08:43→19:24)
[2019-08-01] MEDS: benztropine 1mg tablet CORPAK SCH ×2 (08:43→19:25)
[2019-08-01] MEDS: famotidine 20mg tablet CORPAK SCH ×2 (08:43→19:24)
[2019-08-01] MEDS: VANCOmycin 1250MG/NS 250ml Bag 250 ML IV SCH (09:11)
[2019-08-01 11:00] VITALS: BP 127/69
[2019-08-01] MEDS ORDERED: VANC1PLA9 IV (12:58)
[2019-08-01] MEDS ORDERED: IPRA3AMP9 NEB ×2 (12:58)
[2019-08-01] MEDS ORDERED: CEFT1PIG2 IV (12:58)
[2019-08-01] MEDS ORDERED: FAMO20TA8 CORPAK (13:07)
[2019-08-01] MEDS ORDERED: PRED20TA CORPAK (13:07)
--- NOTE | 2019-08-01 18:15 | NUR ---
Patient in room PCU 3023. I have received report from Tito OSCAR and had the opportunity to ask questions and assume patient care.
--- NOTE | 2019-08-01 20:00 | NUR ---
Transport arrived to take patient to [facility]. All patient's belongings were packed in a bag and taken with her. Midline and NG tube intact, Suarez still in place.
== END 2019-08-01 19:53 | DRG 207 ==
LOC: ER 18:55 → ED HOLD 20:40 → ICU 2S 22:20 → PCU 3S 07-25 16:48
PROVIDERS: ATTEND Internal Medicine Critical Care Medicine
PROC: 5A1955Z Respiratory Ventilation, Greater than 96 Consecutive Hours (ICD-10-PCS; principal; 2019-07-19)
PROC: 0BH17EZ Insertion of Endotracheal Airway into Trachea, Via Natural or Artificial Opening (ICD-10-PCS; 2019-07-19)
PROC: 5A09357 Assistance with Respiratory Ventilation, Less than 24 Consecutive Hours, Continuous Positive Airway Pressure (ICD-10-PCS; 2019-07-24)
PROC: 5A09357 Assistance with Respiratory Ventilation, Less than 24 Consecutive Hours, Continuous Positive Airway Pressure (ICD-10-PCS; 2019-07-26)
PROC: 5A09357 Assistance with Respiratory Ventilation, Less than 24 Consecutive Hours, Continuous Positive Airway Pressure (ICD-10-PCS; 2019-07-27)
PROC: 5A09457 Assistance with Respiratory Ventilation, 24-96 Consecutive Hours, Continuous Positive Airway Pressure (ICD-10-PCS; 2019-07-28)
PROC: 5A09357 Assistance with Respiratory Ventilation, Less than 24 Consecutive Hours, Continuous Positive Airway Pressure (ICD-10-PCS; 2019-08-01)
DX: J96.22 Acute and chronic respiratory failure with hypercapnia (principal); J18.9 Pneumonia, unspecified organism; J44.1 Chronic obstructive pulmonary disease with (acute) exacerbation; E87.0 Hyperosmolality and hypernatremia; J44.0 Chronic obstructive pulmonary disease with (acute) lower respiratory infection; J96.21 Acute and chronic respiratory failure with hypoxia; E87.5 Hyperkalemia; D86.9 Sarcoidosis, unspecified; E07.9 Disorder of thyroid, unspecified; F41.8 Other specified anxiety disorders; I34.0 Nonrheumatic mitral (valve) insufficiency; E66.9 Obesity, unspecified; I50.9 Heart failure, unspecified; Z79.01 Long term (current) use of anticoagulants; Z79.51 Long term (current) use of inhaled steroids; Z79.899 Other long term (current) drug therapy; Z88.0 Allergy status to penicillin; Z88.8 Allergy status to other drugs, medicaments and biological substances; Z91.018 Allergy to other foods; Z68.35 Body mass index [BMI] 35.0-35.9, adult
CPT/HCPCS: 31500; 36415; 36600; 71045; 74018; 76937; 80048; 80053; 80202; 81001; 82803; 82948; 83605; 83735; 83880; 84100; 84134; 84443; 84484; 85018; 85025; 85610; 85730; 87040; 87070; 87081; 87088; 92508; 92616; 93005; 93306; 94002; 94003; 94640; 94660; 94667; 94668; 94760; 97110; 97116; 97161; 97530; 99291; C9113; G0378; J0713; J1815; J1940; J2270; J2920; J2930; J3010; J3370; J3480; J7030; J7060; J7070; J7512; J7626

== ENCOUNTER 2019-08-06 18:13 | Inpatient (IN) | payer MEDICARE, BC ==
[~2019-08-06] VITALS: Ht 162.6 cm; Wt 83.6 kg
[~2019-08-06 18:13] MED LIST changes: +CEFT1PIG2 IV; -CLOB50SO2 TOP; +FAMO20TA8 CORPAK; +FURO20TA4 PO; +IPRA3AMP9 NEB; +MAGN400C PO; +PRED20TA CORPAK; +VANC1PLA9 IV; -etomidate 2mg/ml inj. ONE; -rocuronium bromide 100mg/10ml (10mg/ml) injection IV ONE
[2019-08-06] MEDS ORDERED: cefTAZidime inj 2 GM in normal saline 100ml IV soln 100 ML IV STA (18:22)
[2019-08-06] MEDS ORDERED: normal saline 1000ML IV soln IV ONE (18:25)
[2019-08-06] MEDS ORDERED: ipratropium/albuterol 3ml nebule NEB ONE (18:25)
[2019-08-06] MEDS: vancomycin/NS 1 GM ADD-VANTAGE 250 ML IV SCH ×2 (18:35→20:05)
--- NOTE | 2019-08-06 18:49 | NUR ---
Patient in R/o COVID isolation SVN tx on un Per DR Carey.
[2019-08-06 18:51] LABS: CLARITY,URINE CLEAR (Clear); COLOR,URINE STRAW (Yellow); GLUCOSE, URINE NEGATIVE (Neg); KETONES,URINE NEGATIVE (Neg); LEUKOCYTE ESTERASE ,URINE NEGATIVE (Neg); NITRITES, URINE NEGATIVE (Neg); OCCULT BLOOD,URINE SMALL (Neg); PROTEIN,URINE NEGATIVE (Neg); UROBILINOGEN,URINE 0.2 E.U/dL (0.2-1.0)
[2019-08-06 19:00] LABS: BASOPHILS # (AUTO) 0.1 X10'3 (0-0.2); EOSINOPHILS % (AUTO) 0 % (0-6); LYMPHOCYTES # (AUTO) 0.3 X10'3 (1.1-4.8); MONOCYTES # (AUTO) 0.3 X10'3 (0-0.9)
[2019-08-06 19:02] LABS: BASOPHILS % (AUTO) 1.2 % (0-1); HEMATOCRIT 35.6 % (35.0-45.0); HEMOGLOBIN 11.5 g/dl (12.0-16.0); LYMPHOCYTES % (AUTO) 2.6 % (21-51); MEAN CORPUSCULAR HEMOGLOBIN 27.7 PG (27.0-31.0); MEAN CORPUSCULAR HGB CONC 32.2 g/dL (33.0-36.5); MEAN PLATELET VOLUME 9.1 FL (7.4-10.4); MONOCYTES % (AUTO) 2.5 % (2-12); NEUTROPHILS # (AUTO) 10.6 X10'3 (1.8-7.7); NEUTROPHILS % (AUTO) 93.7 % (42-75); PLATELET COUNT 149 X10'3 (140-440); RED BLOOD COUNT 4.14 X10'6 (4.20-5.60); RED CELL DISTRIBUTION WIDTH 14.5 % (11.5-14.5); WHITE BLOOD COUNT 11.4 X10'3 (4.5-11.0)
[2019-08-06 19:11] LABS: ALANINE AMINOTRANSFERASE 31 U/L (12-78); ALBUMIN 2.3 G/DL (3.4-5.0); ALBUMIN/GLOBULIN RATIO 0.6 (1.1-1.5); ALKALINE PHOSPHATASE 63 IU/L (46-116); ANION GAP 5 (8-16); ASPARTATE AMINO TRANSFERASE 24 U/L (10-37); BILIRUBIN,TOTAL 0.5 MG/DL (0.1-1.0); BLOOD UREA NITROGEN 27 MG/DL (7-18); BUN/CREATININE RATIO 27.6 (6.6-38.0); C-REACTIVE PROTEIN 0.81 MG/DL (0.0-0.5); CALCIUM 9.4 MG/DL (8.5-10.1); CHLORIDE 106 MMOL/L (99-107); CREATININE 0.98 MG/DL (0.40-0.90); GLUCOSE 159 MG/DL (70-104); LACTATE DEHYDROGENASE 299 U/L (81-234); MAGNESIUM 2.6 MG/DL (1.5-2.4); POTASSIUM 4.9 MMOL/L (3.5-5.1); SODIUM 146 MMOL/L (135-145); TOTAL CARBON DIOXIDE 34.8 MMOL/L (24-32); TOTAL PROTEIN 6.4 G/DL (6.4-8.2); eGFR 56 ML/MIN
[2019-08-06 19:16] LABS: ABG BASE EXCESS 10.5 mmol/L (-2.0-3.0); ABG HCO3 34.7 mmol/L (22.0-26.0); ABG PCO2 (T) 48.4 mmHg (35.0-45.0); ALLEN'S TEST POSITIVE; FCOHb 0.3 % (0.5-1.5); FLOW 14 L/min; FMetHb 0.3 % (0.3-1.12); FO2Hb 97.4 % (94-100); PATIENT TEMPERATURE 38.8; TOTAL HEMOGLOBIN 12.2 G/dl (12.0-16.0)
[2019-08-06 19:25] LABS: UA COLLECTION TYPE STRAIGHT CATH
[2019-08-06 19:27] LABS: BACTERIA,URINE NONE SEEN /HPF (Neg); RBC,URINE 0-2 /HPF (0-2); WBC,URINE NONE SEEN /HPF (0-4)
[2019-08-06 19:28] LABS: SQUAMOUS EPITHELIAL CELL,UR NONE SEEN /LPF (FEW)
--- NOTE | 2019-08-06 20:26 | NUR ---
PT REFUSED LAB DRAW FOR FURTHER CULTURE ATTEMPT, WILL MAKE PROVIDER AWARE
--- NOTE | 2019-08-06 22:26 | NUR ---
PATIENT CONTINUING TO PULL OFF NRB, HAVE ASSOCIATE OF SCIENCE IN NURSING SITTING WITH PATIENT NURSING INTEL RECRUITER AWARE CALLED UPSTAIRS WILL BE BRINGING SITTER DOWN TO HELP
[2019-08-06] MEDS: K, MAG and/or Phos replacement - Verify level? MC SCH (22:45)
[2019-08-06] MEDS ORDERED: magnesium hydroxide 30ml (MOM) UD suspension PO PRN (22:45)
[2019-08-06] MEDS ORDERED: potassium Cl 20 mEq SR tablet PO PRN ×2 (22:45)
[2019-08-06] MEDS ORDERED: acetaminophen 325mg tablet PO PRN ×2 (22:45)
[2019-08-06] MEDS ORDERED: albuterol 2.5 MG/3 ML nebule NEB PRN (22:45)
[2019-08-06] MEDS ORDERED: LIDOcaine 2% 10ml TOPICAL JELLY (Urojet) TP ONE (22:45)
[2019-08-06] MEDS ORDERED: ondansetron/PF 4mg/2ml inj IV PRN (22:45)
[2019-08-06] MEDS ORDERED: morphine 4 MG/ML inj SYRINge IV PRN (22:45)
[2019-08-06] MEDS ORDERED: potassium CL 10mEq/100ml bag 100 ML IV PRN ×2 (22:45)
[2019-08-06 23:00] VITALS: BP 119/70
--- NOTE | 2019-08-06 23:00 | NUR ---
Patient in room CICU 2013. I have received report from Karl OSCAR and had the opportunity to ask questions and assume patient care.
[2019-08-07] VITALS (24 sets, daily range): BP systolic 112–169; BP diastolic 65–114
[2019-08-07] MEDS: albuterol 2.5 MG/3 ML nebule NEB SCH ×4 (00:33→16:52)
[2019-08-07] MEDS: normal saline 1000ml 1,000 ML IV SCH ×2 (01:38→20:51)
[2019-08-07 05:40] LABS: BASOPHILS % (AUTO) 0.4 % (0-1); EOSINOPHILS # (AUTO) 0.1 X10'3 (0-0.9); EOSINOPHILS % (AUTO) 1.3 % (0-6); HEMATOCRIT 30.6 % (35.0-45.0); HEMOGLOBIN 9.9 g/dl (12.0-16.0); LYMPHOCYTES # (AUTO) 0.5 X10'3 (1.1-4.8); LYMPHOCYTES % (AUTO) 6.4 % (21-51); MEAN CORPUSCULAR HEMOGLOBIN 27.6 PG (27.0-31.0); MEAN CORPUSCULAR HGB CONC 32.2 g/dL (33.0-36.5); MEAN CORPUSCULAR VOLUME 85.9 FL (78-98); MEAN PLATELET VOLUME 8.8 FL (7.4-10.4); MONOCYTES # (AUTO) 0.5 X10'3 (0-0.9); MONOCYTES % (AUTO) 6.5 % (2-12); NEUTROPHILS # (AUTO) 6.9 X10'3 (1.8-7.7); NEUTROPHILS % (AUTO) 85.4 % (42-75); PLATELET COUNT 118 X10'3 (140-440); RED BLOOD COUNT 3.57 X10'6 (4.20-5.60); RED CELL DISTRIBUTION WIDTH 14.6 % (11.5-14.5); WHITE BLOOD COUNT 8.1 X10'3 (4.5-11.0)
[2019-08-07 05:49] LABS: ALANINE AMINOTRANSFERASE 27 U/L (12-78); ALBUMIN 1.9 G/DL (3.4-5.0); ALBUMIN/GLOBULIN RATIO 0.6 (1.1-1.5); ALKALINE PHOSPHATASE 51 IU/L (46-116); ANION GAP 0 (8-16); ASPARTATE AMINO TRANSFERASE 22 U/L (10-37); BILIRUBIN,TOTAL 0.5 MG/DL (0.1-1.0); BLOOD UREA NITROGEN 25 MG/DL (7-18); BUN/CREATININE RATIO 29.1 (6.6-38.0); CALCIUM 8.6 MG/DL (8.5-10.1); CHLORIDE 111 MMOL/L (99-107); CREATININE 0.86 MG/DL (0.40-0.90); GLUCOSE 86 MG/DL (70-104); MAGNESIUM 2.5 MG/DL (1.5-2.4); PHOSPHORUS 3.5 MG/DL (2.3-4.5); POTASSIUM 3.8 MMOL/L (3.5-5.1); SODIUM 147 MMOL/L (135-145); TOTAL CARBON DIOXIDE 35.7 MMOL/L (24-32); TOTAL PROTEIN 5.3 G/DL (6.4-8.2); eGFR 66 ML/MIN
--- NOTE | 2019-08-07 06:30 | NUR ---
Patient in room CICU 2013. I have received report from Ca OSCAR and had the opportunity to ask questions and assume patient care.
[2019-08-07] MEDS ORDERED: pantoprazole 40mg Tablet.DR PO SCH (07:30)
[2019-08-07] MEDS ORDERED: flecainide 50mg tablet PO SCH (08:00)
[2019-08-07] MEDS ORDERED: buPROPion 75mg tablet PO SCH (08:00)
[2019-08-07] MEDS ORDERED: levoTHYROXINE 125mcg tablet PO SCH (08:00)
[2019-08-07] MEDS ORDERED: atorvastatin 20mg tablet PO SCH (08:00)
[2019-08-07] MEDS: K, MAG and/or Phos replacement - Verify level? MC SCH (08:00)
[2019-08-07] MEDS ORDERED: aripiprazole 5mg tablet PO SCH (08:00)
[2019-08-07] MEDS ORDERED: carVEDilol 3.125mg tablet PO SCH (08:00)
[2019-08-07] MEDS ORDERED: VILAZODONE HYDROCHLORIDE PO SCH (08:00)
[2019-08-07] MEDS ORDERED: benztropine 1mg tablet PO SCH ×2 (08:00→08:45)
[2019-08-07] MEDS ORDERED: liothyronine sod 5mcg tablet PO SCH (08:00)
[2019-08-07] MEDS ORDERED: apixaban 5mg tablet PO SCH (08:00)
[2019-08-07] MEDS ORDERED: prednisone 10mg tablet PO SCH (08:00)
[2019-08-07] MEDS ORDERED: busPIRone 5mg tablet PO SCH (08:00)
[2019-08-07] MEDS: budesonide 0.5mg/2ml UD nebule IH SCH ×2 (08:18→21:30)
[2019-08-07] MEDS ORDERED: apixaban 5mg tablet NG SCH (08:21)
[2019-08-07] MEDS ORDERED: buPROPion 75mg tablet NG SCH ×2 (08:21→11:40)
[2019-08-07] MEDS: cefTAZidime inj 2 GM in normal saline 100ml IV soln 100 ML IV SCH ×2 (08:22→20:47)
[2019-08-07] MEDS ORDERED: aripiprazole 5mg tablet NG SCH ×2 (08:29→11:52)
[2019-08-07] MEDS ORDERED: levoTHYROXINE 125mcg tablet NG SCH (08:30)
[2019-08-07] MEDS ORDERED: prednisone 10mg tablet NG SCH (08:30)
[2019-08-07] MEDS ORDERED: acetaminophen 325mg/10.15ml oral unit dose solution NG PRN ×2 (08:32)
[2019-08-07] MEDS ORDERED: magnesium hydroxide 30ml (MOM) UD suspension NG PRN (08:32)
[2019-08-07] MEDS ORDERED: POTASSIUM BICARB 20meq eff tab 20 MEQ TABLET.EFF NG PRN ×2 (08:33)
[2019-08-07] MEDS: pantoprazole 40 MG vial IV SCH (08:40)
[2019-08-07] MEDS: magnesium oxide 400mg tablet PO SCH (08:43)
[2019-08-07] MEDS ORDERED: VANCOMYCIN LEVEL MC NR (09:00)
[2019-08-07] MEDS ORDERED: apixaban 2.5mg tablet NG ONE (09:05)
[2019-08-07] MEDS: vancomycin/NS 1 GM ADD-VANTAGE 250 ML IV SCH ×2 (09:22→20:47)
[2019-08-07] MEDS ORDERED: FAMO20TA8 PO (11:15)
[2019-08-07] MEDS ORDERED: LEVO100T9 PO (11:17)
[2019-08-07] MEDS ORDERED: POTA10TA36 PO (11:20)
[2019-08-07] MEDS ORDERED: PRED10TA23 PO (11:24)
[2019-08-07] MEDS ORDERED: ATR0.5NEB IH (11:27)
[2019-08-07] MEDS ORDERED: UMEC1DIS PO (11:28)
[2019-08-07] MEDS ORDERED: ATOR20TA66 PO (11:34)
[2019-08-07 12:02] LABS: BASOPHILS % (AUTO) 0.2 % (0-1); EOSINOPHILS # (AUTO) 0.1 X10'3 (0-0.9); EOSINOPHILS % (AUTO) 1.3 % (0-6); HEMATOCRIT 31.9 % (35.0-45.0); HEMOGLOBIN 10.4 g/dl (12.0-16.0); LYMPHOCYTES # (AUTO) 0.2 X10'3 (1.1-4.8); LYMPHOCYTES % (AUTO) 2.4 % (21-51); MEAN CORPUSCULAR HEMOGLOBIN 27.8 PG (27.0-31.0); MEAN CORPUSCULAR HGB CONC 32.7 g/dL (33.0-36.5); MEAN CORPUSCULAR VOLUME 85.2 FL (78-98); MEAN PLATELET VOLUME 8.8 FL (7.4-10.4); MONOCYTES # (AUTO) 0.4 X10'3 (0-0.9); MONOCYTES % (AUTO) 3.6 % (2-12); NEUTROPHILS # (AUTO) 9.5 X10'3 (1.8-7.7); NEUTROPHILS % (AUTO) 92.5 % (42-75); PLATELET COUNT 137 X10'3 (140-440); RED BLOOD COUNT 3.74 X10'6 (4.20-5.60); RED CELL DISTRIBUTION WIDTH 14.9 % (11.5-14.5); WHITE BLOOD COUNT 10.3 X10'3 (4.5-11.0)
--- NOTE | 2019-08-07 12:20 | NUR ---
Daniel consult: Pt admit w/ COPD exacerbation hx COPD and sarcoidosis. Pt NPO per RECYCL[employer] PRODUCTS SORTER recs w/ NG in place currently to suction per RN. RN reports H&H dropping since prior and unsure if bleed vs volume related. CAMDEN d/w RN regarding NG feeds if approved per national coverage specialist and no GIB. TF recs below in case nutrition support. Daniel 12; BLE 2+ non-pitting edema present and skin intact. No BM first day admit. Will continue to monitor. Rec: 1. IF TF per MD; Jevity at 65ml/hr goal 2. IF TF; water flush 200ml Q4 3. IF TF; PALB Q /; daily wts 4. routine bowel care 5. advance diet as medically indicated per [employer]ODU[employer] SORTER/MD to heart healthy Addendum: 08/07/19 at [address] Amended: Links added.
[2019-08-07] MEDS: busPIRone 5mg tablet NG SCH ×2 (13:49→20:48)
--- NOTE | 2019-08-07 16:10 | NUR ---
Bladder scanned patient due to Suarez cath removed at 1205. Showed 288 ml in bladder. Will continue to monitor.
--- NOTE | 2019-08-07 18:18 | NUR ---
Problems reprioritized. Patient report given, questions answered & plan of care reviewed with Jordyn OSCAR.
--- NOTE | 2019-08-07 18:20 | NUR ---
Patient in room CICU 2013. I have received report from Brisa OSCAR and had the opportunity to ask questions and assume patient care.
[2019-08-07] MEDS ORDERED: ipratropium 0.5 MG/2.5ML nebule IH SCH (20:00)
[2019-08-07] MEDS ORDERED: [UNRECOGNIZED DRUG - OTHER] PO SCH (20:00)
[2019-08-07] MEDS: carVEDilol 3.125mg tablet NG SCH (20:48)
[2019-08-07] MEDS: lactobacillus rhamnosus 10,000 MMU CELLS/CAPSULE NG SCH (20:48)
[2019-08-07] MEDS: furosemide 20MG tablet PO SCH (20:49)
[2019-08-07] MEDS: flecainide 50mg tablet NG SCH (20:49)
[2019-08-07] MEDS: benztropine 1mg tablet NG SCH (20:49)
[2019-08-07] MEDS: buPROPion 75mg tablet NG SCH (20:50)
[2019-08-07] MEDS: famotidine 20mg tablet PO SCH (20:50)
[2019-08-07] MEDS: apixaban 2.5mg tablet NG SCH (20:51)
[2019-08-07] MEDS: ipratropium/albuterol 3ml nebule NEB SCH (21:31)
[2019-08-08] VITALS (24 sets, daily range): BP systolic 104–166; BP diastolic 63–98
[2019-08-08] MEDS: morphine 2 MG/ML inj. syringe IV PRN ×2 (00:02→18:32)
[2019-08-08] MEDS: NYSTATIN CREAM - 30GM TUBE TP SCH ×3 (02:44→20:00)
[2019-08-08 03:21] LABS: BASOPHILS % (AUTO) 0.3 % (0-1); EOSINOPHILS # (AUTO) 0.1 X10'3 (0-0.9); EOSINOPHILS % (AUTO) 0.6 % (0-6); HEMATOCRIT 31.9 % (35.0-45.0); HEMOGLOBIN 10.2 g/dl (12.0-16.0); LYMPHOCYTES # (AUTO) 0.4 X10'3 (1.1-4.8); LYMPHOCYTES % (AUTO) 3.4 % (21-51); MEAN CORPUSCULAR HGB CONC 32.1 g/dL (33.0-36.5); MEAN CORPUSCULAR VOLUME 87.3 FL (78-98); MEAN PLATELET VOLUME 8.8 FL (7.4-10.4); MONOCYTES # (AUTO) 0.7 X10'3 (0-0.9); NEUTROPHILS # (AUTO) 9.8 X10'3 (1.8-7.7); NEUTROPHILS % (AUTO) 89.7 % (42-75); PLATELET COUNT 134 X10'3 (140-440); RED BLOOD COUNT 3.66 X10'6 (4.20-5.60); RED CELL DISTRIBUTION WIDTH 14.9 % (11.5-14.5); WHITE BLOOD COUNT 10.9 X10'3 (4.5-11.0)
[2019-08-08] MEDS: ipratropium/albuterol 3ml nebule NEB SCH ×6 (03:30→22:34)
[2019-08-08 03:31] LABS: ALANINE AMINOTRANSFERASE 30 U/L (12-78); ALBUMIN 2.1 G/DL (3.4-5.0); ALBUMIN/GLOBULIN RATIO 0.6 (1.1-1.5); ALKALINE PHOSPHATASE 55 IU/L (46-116); ANION GAP -1 (8-16); ASPARTATE AMINO TRANSFERASE 23 U/L (10-37); BILIRUBIN,TOTAL 0.5 MG/DL (0.1-1.0); BLOOD UREA NITROGEN 30 MG/DL (7-18); BUN/CREATININE RATIO 28.3 (6.6-38.0); CALCIUM 8.5 MG/DL (8.5-10.1); CREATININE 1.06 MG/DL (0.40-0.90); GLUCOSE 95 MG/DL (70-104); MAGNESIUM 2.5 MG/DL (1.5-2.4); PHOSPHORUS 3.5 MG/DL (2.3-4.5); POTASSIUM 4.5 MMOL/L (3.5-5.1); SODIUM 148 MMOL/L (135-145); TOTAL CARBON DIOXIDE 34.8 MMOL/L (24-32); TOTAL PROTEIN 5.6 G/DL (6.4-8.2); eGFR 52 ML/MIN
[2019-08-08 03:33] LABS: CHLORIDE 114 MMOL/L (99-107)
--- NOTE | 2019-08-08 06:23 | NUR ---
Problems reprioritized. Patient report given, questions answered & plan of care reviewed with GRANT OSCAR.
--- NOTE | 2019-08-08 06:30 | NUR ---
Patient in room CICU 2013. I have received report from Jordyn OSCAR and had the opportunity to ask questions and assume patient care.
--- NOTE | 2019-08-08 06:53 | NUR ---
Patient was straight catheterized at around 2300, bladder scan shows 187. Will notify Dr. Rae
[2019-08-08] MEDS ORDERED: VANCOMYCIN LEVEL IV ONE (07:30)
[2019-08-08] MEDS: buPROPion 75mg tablet NG SCH ×2 (07:40→20:41)
[2019-08-08] MEDS: benztropine 1mg tablet NG SCH ×2 (07:40→20:42)
[2019-08-08] MEDS: busPIRone 5mg tablet NG SCH ×3 (07:40→20:41)
[2019-08-08] MEDS: aripiprazole 5mg tablet NG SCH (07:40)
[2019-08-08] MEDS: atorvastatin 20mg tablet NG SCH (07:41)
[2019-08-08] MEDS: carVEDilol 3.125mg tablet NG SCH ×2 (07:41→20:41)
[2019-08-08] MEDS: apixaban 2.5mg tablet NG SCH ×2 (07:41→20:42)
[2019-08-08] MEDS: flecainide 50mg tablet NG SCH ×2 (07:42→20:41)
[2019-08-08] MEDS: famotidine 20mg tablet PO SCH (07:42)
[2019-08-08] MEDS: cefTAZidime inj 2 GM in normal saline 100ml IV soln 100 ML IV SCH (07:46)
[2019-08-08] MEDS: levoTHYROXINE 100mcg tablet NG SCH (07:52)
[2019-08-08] MEDS: liothyronine sod 5mcg tablet NG SCH (07:53)
[2019-08-08] MEDS: magnesium oxide 400mg tablet PO SCH (07:54)
[2019-08-08] MEDS: furosemide 20MG tablet PO SCH (07:55)
[2019-08-08] MEDS: lactobacillus rhamnosus 10,000 MMU CELLS/CAPSULE NG SCH ×2 (07:55→20:41)
[2019-08-08] MEDS: pantoprazole 40 MG vial IV SCH (08:00)
[2019-08-08] MEDS ORDERED: potassium chloride 10mEq ER tablet PO SCH (08:00)
[2019-08-08] MEDS: K, MAG and/or Phos replacement - Verify level? MC SCH (08:00)
[2019-08-08] MEDS: budesonide 0.5mg/2ml UD nebule IH SCH ×2 (08:25→18:58)
[2019-08-08] MEDS ORDERED: LIDOcaine 2% 10ml TOPICAL JELLY (Urojet) TP ONE (08:40)
[2019-08-08] MEDS ORDERED: levoFLOXACIN 500mg tablet PO ONE (09:20)
[2019-08-08] MEDS ORDERED: furosemide 40mg/4ml inj IV ONE (09:20)
--- NOTE | 2019-08-08 09:35 | NUR ---
TF consult: Per consult pt was receiving Glucerna at 70 mL/hr at . Recommend formula change to Jevity 1.2 during admission given BG levels WNL and A1c 5.2% WNL. TF recommendations will meet 100% of patient's estimated nutrient needs using admit wt of 70.8 kg. Pt s/p f/u BSS this morning with recs NPO and will reassess d/t pt coughing after swallowing. Pt confused and A/O x 1 per physical assessment. Will continue to follow closely. Rec: 1. Continuous TF via NG tube using Jevity with goal rate of 70 mL/hr. To provide 1680 mL total volume/day, 2016 kcal, 93 g protein, and 1356 mL water 2. Additional 150 mL water flush Q4H; monitor serum Na, 148 today 3. PALB q /; daily wts 4. routine bowel care 5. advance diet as medically indicated per / to heart healthy Addendum: 08/08/19 at [address] Amended: Links added.
[2019-08-08] MEDS: levoFLOXACIN-Levaquin 500mg/D5 100 ML IV SCH (13:21)
[2019-08-08] MEDS: methylPREDNISolone sod succ 125mg/2ml vial IV SCH ×2 (13:29→20:42)
--- NOTE | 2019-08-08 15:10 | NUR ---
martin ordered but unable to use effectively on patient. Pt will not tolerate mask and is unable to use mouth piece Addendum: 08/08/19 at 1511 by Leena Santamaria RT Amended: Links added.
[2019-08-08] MEDS: furosemide 40mg/4ml inj IV SCH (16:39)
--- NOTE | 2019-08-08 18:10 | NUR ---
Problems reprioritized. Patient report given, questions answered & plan of care reviewed with Jennifer Medina RN.
--- NOTE | 2019-08-08 18:40 | NUR ---
I have received report and assumed care of pt, Pt resting in bed rise and fall of chest cavity equile and symmetrical, pt is pleasantly confused, bedside MODEL MAKER PLASTER at bedside to insure safety as pt is impulsive and pulls at her NG and IV's, she is easily redirected. Tube feeding in place for nutritional support. Pt does have an elevated respitory rate at rest. MD's are reportedly aware. pt encourage to use controlled breathing and relaxation to decrease her work of breathing
--- NOTE | 2019-08-08 19:15 | NUR ---
Blanca attempted. Patient unable to use mouthpiece; won't keep lips sealed. Mask attempted; patient repeatedly pulled mask away and would not continue treatment. Treatmentr Addendum: 08/08/19 at 1919 by Dejuan Roberts RT TGreatment given via SVN
[2019-08-08] MEDS ORDERED: vancomycin inj 500 MG in normal saline 100ml IV soln 100 ML IV SCH (20:00)
[2019-08-08] MEDS: cefTAZidime inj. 1 GM in normal saline 100ml IV soln 100 ML IV SCH (20:41)
[2019-08-09] VITALS (24 sets, daily range): BP systolic 105–144; BP diastolic 51–86
[2019-08-09] MEDS: furosemide 40mg/4ml inj IV SCH ×4 (00:14→23:59)
[2019-08-09] MEDS: morphine 2 MG/ML inj. syringe IV PRN ×2 (01:06→18:58)
[2019-08-09] MEDS: ipratropium/albuterol 3ml nebule NEB SCH ×6 (02:19→22:49)
[2019-08-09] MEDS: methylPREDNISolone sod succ 125mg/2ml vial IV SCH ×4 (02:41→20:00)
[2019-08-09 05:21] LABS: BASOPHILS % (AUTO) 0.1 % (0-1); EOSINOPHILS % (AUTO) 0.1 % (0-6); HEMATOCRIT 29.9 % (35.0-45.0); HEMOGLOBIN 9.7 g/dl (12.0-16.0); LYMPHOCYTES # (AUTO) 0.4 X10'3 (1.1-4.8); LYMPHOCYTES % (AUTO) 5.1 % (21-51); MEAN CORPUSCULAR HGB CONC 32.4 g/dL (33.0-36.5); MEAN CORPUSCULAR VOLUME 86.4 FL (78-98); MEAN PLATELET VOLUME 8.6 FL (7.4-10.4); MONOCYTES # (AUTO) 0.5 X10'3 (0-0.9); MONOCYTES % (AUTO) 6.2 % (2-12); NEUTROPHILS # (AUTO) 7.4 X10'3 (1.8-7.7); NEUTROPHILS % (AUTO) 88.5 % (42-75); PLATELET COUNT 131 X10'3 (140-440); RED BLOOD COUNT 3.46 X10'6 (4.20-5.60); RED CELL DISTRIBUTION WIDTH 15.1 % (11.5-14.5); WHITE BLOOD COUNT 8.4 X10'3 (4.5-11.0)
[2019-08-09 05:58] LABS: ALANINE AMINOTRANSFERASE 24 U/L (12-78); ALBUMIN 2.1 G/DL (3.4-5.0); ALBUMIN/GLOBULIN RATIO 0.5 (1.1-1.5); ALKALINE PHOSPHATASE 48 IU/L (46-116); ANION GAP 2 (8-16); ASPARTATE AMINO TRANSFERASE 19 U/L (10-37); BILIRUBIN,TOTAL 0.5 MG/DL (0.1-1.0); BLOOD UREA NITROGEN 31 MG/DL (7-18); CALCIUM 8.6 MG/DL (8.5-10.1); CHLORIDE 112 MMOL/L (99-107); CREATININE 1.15 MG/DL (0.40-0.90); GLUCOSE 138 MG/DL (70-104); MAGNESIUM 2.5 MG/DL (1.5-2.4); PHOSPHORUS 2.9 MG/DL (2.3-4.5); POTASSIUM 3.9 MMOL/L (3.5-5.1); SODIUM 150 MMOL/L (135-145); TOTAL CARBON DIOXIDE 35.9 MMOL/L (24-32); eGFR 47 ML/MIN
[2019-08-09] MEDS: magnesium oxide 400mg tablet PO SCH (06:42)
[2019-08-09] MEDS: budesonide 0.5mg/2ml UD nebule IH SCH ×2 (07:17→19:17)
--- NOTE | 2019-08-09 07:25 | NUR ---
ATTEMPTED META NEB. PT REFUSED TO MAKE TIGHT SEAL ON MOUTH PIECE AND WOULD NOT ALLOW ME TO MAKE A SEAL WITH THE MASK. STOPPED AND PUT PATIENT ON REGULAR NEB. WILL DISCUSS WITH DR. HARRINGTON WHEN HE COMES BY Addendum: 08/09/19 at 0727 by Leena Santamaria RT Amended: Links added.
[2019-08-09] MEDS: levoFLOXACIN-Levaquin 500mg/D5 100 ML IV SCH (07:59)
[2019-08-09] MEDS: pantoprazole 40 MG vial IV SCH (08:00)
[2019-08-09] MEDS: K, MAG and/or Phos replacement - Verify level? MC SCH (08:00)
[2019-08-09] MEDS: flecainide 50mg tablet NG SCH ×2 (08:01→20:00)
[2019-08-09] MEDS: buPROPion 75mg tablet NG SCH ×2 (08:01→20:00)
[2019-08-09] MEDS: lactobacillus rhamnosus 10,000 MMU CELLS/CAPSULE NG SCH ×2 (08:01→20:00)
[2019-08-09] MEDS: liothyronine sod 5mcg tablet NG SCH (08:01)
[2019-08-09] MEDS: benztropine 1mg tablet NG SCH ×2 (08:01→20:00)
[2019-08-09] MEDS: aripiprazole 5mg tablet NG SCH (08:01)
[2019-08-09] MEDS: busPIRone 5mg tablet NG SCH ×3 (08:02→21:30)
[2019-08-09] MEDS: levoTHYROXINE 100mcg tablet NG SCH (08:02)
[2019-08-09] MEDS: carVEDilol 3.125mg tablet NG SCH ×2 (08:03→20:00)
[2019-08-09] MEDS: apixaban 2.5mg tablet NG SCH ×2 (08:03→20:00)
[2019-08-09] MEDS: atorvastatin 20mg tablet NG SCH (08:15)
[2019-08-09] MEDS: NYSTATIN CREAM - 30GM TUBE TP SCH ×2 (08:24→20:00)
[2019-08-09] MEDS: cefTAZidime inj. 1 GM in normal saline 100ml IV soln 100 ML IV SCH ×2 (08:24→20:00)
[2019-08-09] MEDS ORDERED: levoFLOXACIN 500mg tablet PO SCH (11:00)
--- NOTE | 2019-08-09 14:49 | NUR ---
PT REFUSED RUDOLPHB Addendum: 08/09/19 at 1456 by Leena Santamaria RT Amended: Links added.
[2019-08-09] MEDS ORDERED: dextrose ORAL solution 15 GM/59 ML bottle PO PRN ×2 (15:30)
[2019-08-09] MEDS ORDERED: dextrose 50%-water 50ml dispensing syringe IV PRN ×2 (15:30)
[2019-08-09] MEDS: insulin regular, human U-100 3ml vial - multi-dose SQ SCH ×2 (15:41→21:42)
--- NOTE | 2019-08-09 17:33 | NUR ---
Pt. tachypneic through greater part of day. Dr. Rae aware. Sodium of [address] Rae made aware. Recommendation to increase free water flushes or IVF by this RN. Tube feeding advanced to goal, Hyperglycemic protocol initiated at Level 2.
--- NOTE | 2019-08-09 18:00 | NUR ---
Patient in room CICU 2013. I have received report from Zarina OSCAR and had the opportunity to ask questions and assume patient care.
[2019-08-09] MEDS: insulin glargine (Lantus) pen - multi-dose SQ SCH (21:35)
[2019-08-10] VITALS (24 sets, daily range): BP systolic 100–163; BP diastolic 57–98
[2019-08-10] MEDS: methylPREDNISolone sod succ 125mg/2ml vial IV SCH ×4 (02:12→20:27)
[2019-08-10] MEDS: morphine 2 MG/ML inj. syringe IV PRN ×2 (02:13→06:51)
[2019-08-10] MEDS: ipratropium/albuterol 3ml nebule NEB SCH ×6 (02:38→23:26)
[2019-08-10 02:59] LABS: BASOPHILS % (AUTO) 0.1 % (0-1); EOSINOPHILS % (AUTO) 0 % (0-6); HEMATOCRIT 29.7 % (35.0-45.0); HEMOGLOBIN 9.6 g/dl (12.0-16.0); LYMPHOCYTES # (AUTO) 0.2 X10'3 (1.1-4.8); LYMPHOCYTES % (AUTO) 2.7 % (21-51); MEAN CORPUSCULAR HEMOGLOBIN 27.7 PG (27.0-31.0); MEAN CORPUSCULAR HGB CONC 32.2 g/dL (33.0-36.5); MEAN CORPUSCULAR VOLUME 86.1 FL (78-98); MEAN PLATELET VOLUME 8.5 FL (7.4-10.4); MONOCYTES # (AUTO) 0.2 X10'3 (0-0.9); MONOCYTES % (AUTO) 2.4 % (2-12); NEUTROPHILS % (AUTO) 94.8 % (42-75); PLATELET COUNT 139 X10'3 (140-440); RED BLOOD COUNT 3.45 X10'6 (4.20-5.60); RED CELL DISTRIBUTION WIDTH 14.9 % (11.5-14.5); WHITE BLOOD COUNT 7.4 X10'3 (4.5-11.0)
[2019-08-10] MEDS: insulin regular, human U-100 3ml vial - multi-dose SQ SCH ×3 (03:02→14:39)
[2019-08-10 03:08] LABS: ALANINE AMINOTRANSFERASE 23 U/L (12-78); ALBUMIN 2.2 G/DL (3.4-5.0); ALBUMIN/GLOBULIN RATIO 0.6 (1.1-1.5); ALKALINE PHOSPHATASE 49 IU/L (46-116); ANION GAP -1 (8-16); ASPARTATE AMINO TRANSFERASE 14 U/L (10-37); BILIRUBIN,TOTAL 0.5 MG/DL (0.1-1.0); BLOOD UREA NITROGEN 37 MG/DL (7-18); BUN/CREATININE RATIO 34.3 (6.6-38.0); CALCIUM 8.8 MG/DL (8.5-10.1); CHLORIDE 109 MMOL/L (99-107); CREATININE 1.08 MG/DL (0.40-0.90); GLUCOSE 171 MG/DL (70-104); MAGNESIUM 2.4 MG/DL (1.5-2.4); PHOSPHORUS 2.9 MG/DL (2.3-4.5); POTASSIUM 3.9 MMOL/L (3.5-5.1); SODIUM 147 MMOL/L (135-145); TOTAL CARBON DIOXIDE 38.6 MMOL/L (24-32); TOTAL PROTEIN 5.7 G/DL (6.4-8.2); eGFR 50 ML/MIN
--- NOTE | 2019-08-10 05:33 | NUR ---
Orientee Medication Administration: For this medication-pass time frame, all medication were reviewed, dispensed, administered and documented per hospital policy by Cassia OSCAR. Orientee documentation: I have reviewed and agree with interventions, assessments performed and documented by Cassia OSCAR.
--- NOTE | 2019-08-10 06:00 | NUR ---
Patient in room CICU 2013. I have received report from DAYNE Antony and had the opportunity to ask questions and assume patient care.
--- NOTE | 2019-08-10 06:30 | NUR ---
Problems reprioritized. Patient report given, questions answered & plan of care reviewed with Mikayla OSCAR.
--- NOTE | 2019-08-10 06:30 | NUR ---
Problems reprioritized. Patient report given, questions answered & plan of care reviewed with Mikayla OSCAR.
[2019-08-10] MEDS: levoTHYROXINE 100mcg tablet NG SCH (06:52)
[2019-08-10] MEDS: liothyronine sod 5mcg tablet NG SCH (06:52)
[2019-08-10] MEDS ORDERED: VANCOMYCIN LEVEL IV ONE (07:30)
[2019-08-10] MEDS: budesonide 0.5mg/2ml UD nebule IH SCH ×2 (07:41→19:50)
[2019-08-10] MEDS: K, MAG and/or Phos replacement - Verify level? MC SCH (08:00)
[2019-08-10] MEDS: cefTAZidime inj. 1 GM in normal saline 100ml IV soln 100 ML IV SCH ×2 (08:40→20:25)
[2019-08-10] MEDS: levoFLOXACIN-Levaquin 500mg/D5 100 ML IV SCH (08:42)
[2019-08-10] MEDS: pantoprazole 40 MG vial IV SCH (08:43)
[2019-08-10] MEDS: furosemide 40mg/4ml inj IV SCH ×2 (08:47→16:48)
[2019-08-10] MEDS: lactobacillus rhamnosus 10,000 MMU CELLS/CAPSULE NG SCH ×2 (08:55→20:28)
[2019-08-10] MEDS: aripiprazole 5mg tablet NG SCH (08:56)
[2019-08-10] MEDS: buPROPion 75mg tablet NG SCH ×2 (08:57→20:27)
[2019-08-10] MEDS: flecainide 50mg tablet NG SCH ×2 (08:57→20:28)
[2019-08-10] MEDS: benztropine 1mg tablet NG SCH ×2 (08:57→20:27)
[2019-08-10] MEDS: magnesium oxide 400mg tablet PO SCH (08:58)
[2019-08-10] MEDS: carVEDilol 3.125mg tablet NG SCH ×2 (08:58→20:27)
[2019-08-10] MEDS: apixaban 2.5mg tablet NG SCH ×2 (08:59→20:28)
[2019-08-10] MEDS: busPIRone 5mg tablet NG SCH ×3 (09:00→20:28)
[2019-08-10] MEDS: NYSTATIN CREAM - 30GM TUBE TP SCH ×2 (09:13→20:28)
[2019-08-10] MEDS: atorvastatin 20mg tablet NG SCH (09:14)
--- NOTE | 2019-08-10 11:09 | NUR ---
Problems reprioritized. Patient report given, questions answered & plan of care reviewed with DAYNE Tamez.
[2019-08-10] MEDS: insulin glargine (Lantus) pen - multi-dose SQ SCH (21:04)
[2019-08-11] VITALS (23 sets, daily range): BP systolic 116–150; BP diastolic 59–94
[2019-08-11] MEDS: furosemide 40mg/4ml inj IV SCH ×3 (01:11→16:53)
[2019-08-11] MEDS: methylPREDNISolone sod succ 125mg/2ml vial IV SCH ×4 (01:12→19:45)
[2019-08-11 02:44] LABS: BASOPHILS % (AUTO) 0.1 % (0-1); EOSINOPHILS % (AUTO) 0 % (0-6); HEMATOCRIT 29.9 % (35.0-45.0); HEMOGLOBIN 9.6 g/dl (12.0-16.0); LYMPHOCYTES # (AUTO) 0.2 X10'3 (1.1-4.8); LYMPHOCYTES % (AUTO) 1.8 % (21-51); MEAN CORPUSCULAR HGB CONC 32.3 g/dL (33.0-36.5); MEAN CORPUSCULAR VOLUME 86.6 FL (78-98); MEAN PLATELET VOLUME 8.6 FL (7.4-10.4); MONOCYTES # (AUTO) 0.3 X10'3 (0-0.9); NEUTROPHILS # (AUTO) 8.2 X10'3 (1.8-7.7); NEUTROPHILS % (AUTO) 95.1 % (42-75); PLATELET COUNT 141 X10'3 (140-440); RED BLOOD COUNT 3.45 X10'6 (4.20-5.60); RED CELL DISTRIBUTION WIDTH 15.3 % (11.5-14.5); WHITE BLOOD COUNT 8.6 X10'3 (4.5-11.0)
[2019-08-11 02:47] LABS: ALANINE AMINOTRANSFERASE 20 U/L (12-78); ALBUMIN 2.2 G/DL (3.4-5.0); ALBUMIN/GLOBULIN RATIO 0.6 (1.1-1.5); ALKALINE PHOSPHATASE 47 IU/L (46-116); ANION GAP 1 (8-16); ASPARTATE AMINO TRANSFERASE 15 U/L (10-37); BILIRUBIN,TOTAL 0.5 MG/DL (0.1-1.0); BLOOD UREA NITROGEN 43 MG/DL (7-18); BUN/CREATININE RATIO 40.2 (6.6-38.0); CALCIUM 8.8 MG/DL (8.5-10.1); CHLORIDE 106 MMOL/L (99-107); CREATININE 1.07 MG/DL (0.40-0.90); GLUCOSE 236 MG/DL (70-104); MAGNESIUM 2.6 MG/DL (1.5-2.4); PHOSPHORUS 2.2 MG/DL (2.3-4.5); POTASSIUM 3.9 MMOL/L (3.5-5.1); PREALBUMIN 38.5 MG/DL (19-36); SODIUM 146 MMOL/L (135-145); TOTAL CARBON DIOXIDE 39.4 MMOL/L (24-32); TOTAL PROTEIN 5.6 G/DL (6.4-8.2); eGFR 51 ML/MIN
[2019-08-11] MEDS: ipratropium/albuterol 3ml nebule NEB SCH ×6 (03:32→23:21)
--- NOTE | 2019-08-11 06:00 | NUR ---
Patient in room CICU 2013. I have received report from JOCY OSCAR and had the opportunity to ask questions and assume patient care.
--- NOTE | 2019-08-11 06:16 | NUR ---
Problems reprioritized. Patient report given Jordyn CASTRO, questions answered & plan of care reviewed with .
[2019-08-11] MEDS: buPROPion 75mg tablet NG SCH ×2 (07:47→19:46)
[2019-08-11] MEDS: benztropine 1mg tablet NG SCH ×2 (07:47→19:45)
[2019-08-11] MEDS: aripiprazole 5mg tablet NG SCH (07:47)
[2019-08-11] MEDS: flecainide 50mg tablet NG SCH ×2 (07:48→19:46)
[2019-08-11] MEDS: carVEDilol 3.125mg tablet NG SCH ×2 (07:48→19:46)
[2019-08-11] MEDS: levoTHYROXINE 100mcg tablet NG SCH (07:48)
[2019-08-11] MEDS: busPIRone 5mg tablet NG SCH ×3 (07:48→19:48)
[2019-08-11] MEDS: atorvastatin 20mg tablet NG SCH (07:49)
[2019-08-11] MEDS: apixaban 2.5mg tablet NG SCH ×2 (07:49→19:46)
[2019-08-11] MEDS: liothyronine sod 5mcg tablet NG SCH (07:49)
[2019-08-11] MEDS: cefTAZidime inj. 1 GM in normal saline 100ml IV soln 100 ML IV SCH ×2 (07:50→19:45)
[2019-08-11] MEDS: NYSTATIN CREAM - 30GM TUBE TP SCH ×2 (07:51→19:47)
[2019-08-11] MEDS: magnesium oxide 400mg tablet PO SCH (07:55)
[2019-08-11] MEDS: levoFLOXACIN-Levaquin 250mg/D5 50 ML IV SCH (07:55)
[2019-08-11] MEDS: lactobacillus rhamnosus 10,000 MMU CELLS/CAPSULE NG SCH ×2 (07:55→19:46)
[2019-08-11] MEDS: pantoprazole 40 MG vial IV SCH (07:58)
[2019-08-11] MEDS: K, MAG and/or Phos replacement - Verify level? MC SCH (08:46)
[2019-08-11] MEDS: insulin regular, human U-100 3ml vial - multi-dose SQ SCH ×3 (08:54→20:10)
[2019-08-11] MEDS: budesonide 0.5mg/2ml UD nebule IH SCH ×2 (10:29→19:36)
--- NOTE | 2019-08-11 12:08 | NUR ---
Reassessment: Pt tolerating TF at goal GRV WNL. NPO still per REGISTERED NURSE TEACHER recs. LBM 08/07. First PALB 38.5 elevated; not overfeeding and receiving adequate protein/kcals given needs. Wt has increased to 90kg bed scale from 70kg initial bed scale wt on admit; RN reports 70kg is accurate wt. This wt is being used for EN recs. Na 146 receiving 150ml Q4 water flushes as well as lasix w/ -2229ml fluid balance this admit. Will monitor for next PALB and EN adjustment as medically indicated; pt has no hx kidney disease and no diarrhea this admit. Will continue to monitor for EN tolerance and diet advancement as medically indicated. Rec: 1. Continuous TF via NG tube using Jevity with goal rate of 70 mL/hr. To provide 1680 mL total volume/day, 2016 kcal, 93 g protein, and 1356 mL water 2. Additional 150 mL water flush Q4H 3. PALB q /; daily wts 4. routine bowel care 5. advance diet as medically indicated per LILY to heart healthy Addendum: 08/11/19 at [address] Amended: Links added.
--- NOTE | 2019-08-11 14:09 | NUR ---
WORKING WITH PT GETTING OUT OF BED TO CHAIR. BUMPED O2 TO 3L DUE TO DESATURATION TO 89%, PATIENT NOW SITTING AND O2 BACK AT 2L. Addendum: 08/11/19 at 1413 by Jordyn Vizcarra RN Amended: Links added.
--- NOTE | 2019-08-11 18:07 | NUR ---
Problems reprioritized. Patient report given, questions answered & plan of care reviewed with Angely OSCAR.
--- NOTE | 2019-08-11 18:10 | NUR ---
Patient in room CICU 2013. I have received report from DAYNE Cobb and had the opportunity to ask questions and assume patient care. Patient is sleeping comfortably, easy to wake and follows commands. I will continue to monitor.
[2019-08-11] MEDS: insulin glargine (Lantus) pen - multi-dose SQ SCH (20:11)
[2019-08-12] VITALS (14 sets, daily range): BP systolic 111–141; BP diastolic 58–79
[2019-08-12] MEDS: furosemide 40mg/4ml inj IV SCH ×2 (00:04→08:00)
[2019-08-12] MEDS: methylPREDNISolone sod succ 125mg/2ml vial IV SCH ×2 (01:20→08:00)
[2019-08-12] MEDS: morphine 2 MG/ML inj. syringe IV PRN (01:20)
[2019-08-12] MEDS: insulin regular, human U-100 3ml vial - multi-dose SQ SCH ×2 (02:19→08:06)
[2019-08-12 02:45] LABS: BASOPHILS % (AUTO) 0 % (0-1); EOSINOPHILS % (AUTO) 0 % (0-6); HEMATOCRIT 31.8 % (35.0-45.0); HEMOGLOBIN 10.2 g/dl (12.0-16.0); LYMPHOCYTES # (AUTO) 0.2 X10'3 (1.1-4.8); LYMPHOCYTES % (AUTO) 1.9 % (21-51); MEAN CORPUSCULAR HGB CONC 32.1 g/dL (33.0-36.5); MEAN CORPUSCULAR VOLUME 87.4 FL (78-98); MEAN PLATELET VOLUME 8.9 FL (7.4-10.4); MONOCYTES # (AUTO) 0.4 X10'3 (0-0.9); MONOCYTES % (AUTO) 4.2 % (2-12); NEUTROPHILS # (AUTO) 8.3 X10'3 (1.8-7.7); NEUTROPHILS % (AUTO) 93.9 % (42-75); PLATELET COUNT 141 X10'3 (140-440); RED BLOOD COUNT 3.64 X10'6 (4.20-5.60); RED CELL DISTRIBUTION WIDTH 15.6 % (11.5-14.5); WHITE BLOOD COUNT 8.8 X10'3 (4.5-11.0)
[2019-08-12 02:52] LABS: ALANINE AMINOTRANSFERASE 25 U/L (12-78); ALBUMIN 2.4 G/DL (3.4-5.0); ALBUMIN/GLOBULIN RATIO 0.7 (1.1-1.5); ALKALINE PHOSPHATASE 47 IU/L (46-116); ANION GAP -2 (8-16); ASPARTATE AMINO TRANSFERASE 27 U/L (10-37); BILIRUBIN,TOTAL 0.7 MG/DL (0.1-1.0); BLOOD UREA NITROGEN 47 MG/DL (7-18); BUN/CREATININE RATIO 43.1 (6.6-38.0); CALCIUM 8.8 MG/DL (8.5-10.1); CHLORIDE 107 MMOL/L (99-107); CREATININE 1.09 MG/DL (0.40-0.90); GLUCOSE 132 MG/DL (70-104); MAGNESIUM 2.5 MG/DL (1.5-2.4); PHOSPHORUS 2.9 MG/DL (2.3-4.5); POTASSIUM 3.9 MMOL/L (3.5-5.1); SODIUM 148 MMOL/L (135-145); TOTAL PROTEIN 5.7 G/DL (6.4-8.2); eGFR 50 ML/MIN
[2019-08-12 02:53] LABS: TOTAL CARBON DIOXIDE 42.6 MMOL/L (24-32)
[2019-08-12] MEDS: ipratropium/albuterol 3ml nebule NEB SCH ×3 (03:06→11:00)
--- NOTE | 2019-08-12 06:13 | NUR ---
Problems reprioritized. Patient report given, questions answered & plan of care reviewed with DAYNE Edge.
--- NOTE | 2019-08-12 06:51 | NUR ---
Patient in room CICU 2013. I have received report from Mariia OSCAR and had the opportunity to ask questions and assume patient care. Patient laying in bed with eyes closed, NG in place for Tube feed, R upper extened with TKO of NS infusing, jeong to gravity. vital signs stable no signs or symptoms of distress will continue to monitor
[2019-08-12] MEDS: budesonide 0.5mg/2ml UD nebule IH SCH (07:30)
[2019-08-12] MEDS: buPROPion 75mg tablet NG SCH (07:59)
[2019-08-12] MEDS: pantoprazole 40 MG vial IV SCH (07:59)
[2019-08-12] MEDS: benztropine 1mg tablet NG SCH (07:59)
[2019-08-12] MEDS: aripiprazole 5mg tablet NG SCH (07:59)
[2019-08-12] MEDS: K, MAG and/or Phos replacement - Verify level? MC SCH (08:00)
[2019-08-12] MEDS: flecainide 50mg tablet NG SCH (08:01)
[2019-08-12] MEDS: apixaban 2.5mg tablet NG SCH (08:02)
[2019-08-12] MEDS: liothyronine sod 5mcg tablet NG SCH (08:02)
[2019-08-12] MEDS: levoTHYROXINE 100mcg tablet NG SCH (08:02)
[2019-08-12] MEDS: lactobacillus rhamnosus 10,000 MMU CELLS/CAPSULE NG SCH (08:02)
[2019-08-12] MEDS: busPIRone 5mg tablet NG SCH ×2 (08:03→12:32)
[2019-08-12] MEDS: atorvastatin 20mg tablet NG SCH (08:03)
[2019-08-12] MEDS: magnesium oxide 400mg tablet PO SCH (08:03)
[2019-08-12] MEDS: levoFLOXACIN-Levaquin 250mg/D5 50 ML IV SCH (08:04)
[2019-08-12] MEDS: cefTAZidime inj. 1 GM in normal saline 100ml IV soln 100 ML IV SCH (08:04)
[2019-08-12] MEDS: carVEDilol 3.125mg tablet NG SCH (08:11)
[2019-08-12] MEDS: NYSTATIN CREAM - 30GM TUBE TP SCH (08:11)
--- NOTE | 2019-08-12 13:30 | NUR ---
Called report to duyen with Angela, all questions answered, transfer packet sent with [facility]
== END 2019-08-12 13:34 | DRG 190 ==
LOC: ER 18:14 → ED HOLD 22:42 → UNDOADMIN 23:00 → ED HOLD 23:16 → CICU 2S 23:16
PROVIDERS: ADMIT Internal Medicine Critical Care Medicine; ATTEND Internal Medicine Critical Care Medicine
DX: J44.1 Chronic obstructive pulmonary disease with (acute) exacerbation (principal); J96.21 Acute and chronic respiratory failure with hypoxia; E87.0 Hyperosmolality and hypernatremia; F41.9 Anxiety disorder, unspecified; F32.9 Major depressive disorder, single episode, unspecified; D86.9 Sarcoidosis, unspecified; Z88.0 Allergy status to penicillin; Z88.8 Allergy status to other drugs, medicaments and biological substances; Z91.018 Allergy to other foods
CPT/HCPCS: 36415; 36600; 71045; 76937; 80053; 80202; 81001; 82803; 82948; 83605; 83615; 83735; 84100; 84134; 84145; 84443; 85018; 85025; 86140; 87040; 87081; 92508; 92616; 93005; 94640; 94668; 94760; 96365; 96367; 97110; 97161; 97530; 99285; C9113; G0378; J0713; J1815; J1940; J1956; J2270; J2930; J3370; J7030; J7512; J7626

== ENCOUNTER 2019-08-19 12:44 | Emergency (ER) | payer MEDICARE, BC ==
[~2019-08-19] VITALS: Ht 162.6 cm; Wt 97.7 kg
[~2019-08-19 12:44] MED LIST changes: +ATR0.5NEB IH; -BUDE10.2 INH; -CEFT1PIG2 IV; -FAMO20TA8 CORPAK; +FAMO20TA8 PO; -IPRA3AMP9 NEB; +LEVO100T9 PO; -LEVO125T8 PO; -MAGN400C PO; +PRED10TA23 PO; -PRED20TA CORPAK; +UMEC1DIS PO; -VANC1PLA9 IV
--- NOTE | 2019-08-19 13:41 | NUR ---
pt able to answer that she is feeling better now, nods and verbalizes
[2019-08-19 13:45] LABS: BASOPHILS % (AUTO) 0.1 % (0-1); EOSINOPHILS % (AUTO) 0 % (0-6); HEMOGLOBIN 11.6 g/dl (12.0-16.0); LYMPHOCYTES # (AUTO) 0.3 X10'3 (1.1-4.8); LYMPHOCYTES % (AUTO) 2.4 % (21-51); MEAN CORPUSCULAR HEMOGLOBIN 28.4 PG (27.0-31.0); MEAN CORPUSCULAR HGB CONC 32.1 g/dL (33.0-36.5); MEAN CORPUSCULAR VOLUME 88.4 FL (78-98); MONOCYTES # (AUTO) 0.4 X10'3 (0-0.9); NEUTROPHILS # (AUTO) 12.3 X10'3 (1.8-7.7); NEUTROPHILS % (AUTO) 94.5 % (42-75); PLATELET COUNT 142 X10'3 (140-440); RED BLOOD COUNT 4.08 X10'6 (4.20-5.60); RED CELL DISTRIBUTION WIDTH 16.5 % (11.5-14.5)
[2019-08-19 14:01] LABS: ALANINE AMINOTRANSFERASE 81 U/L (12-78); ALBUMIN/GLOBULIN RATIO 0.9 (1.1-1.5); ALKALINE PHOSPHATASE 54 IU/L (46-116); ANION GAP -1 (8-16); ASPARTATE AMINO TRANSFERASE 53 U/L (10-37); BILIRUBIN,TOTAL 0.8 MG/DL (0.1-1.0); BLOOD UREA NITROGEN 70 MG/DL (7-18); BUN/CREATININE RATIO 47.9 (6.6-38.0); CALCIUM 9.5 MG/DL (8.5-10.1); CHLORIDE 112 MMOL/L (99-107); CREATININE 1.46 MG/DL (0.40-0.90); GLUCOSE 185 MG/DL (70-104); POTASSIUM 4.5 MMOL/L (3.5-5.1); SODIUM 153 MMOL/L (135-145); TOTAL PROTEIN 6.3 G/DL (6.4-8.2); eGFR 36 ML/MIN
[2019-08-19 14:02] LABS: TOTAL CARBON DIOXIDE 42.2 MMOL/L (24-32)
[2019-08-19] MEDS ORDERED: ipratropium/albuterol 3ml nebule NEB ONE (14:20)
[2019-08-19 14:39] LABS: CLARITY,URINE CLEAR (Clear); COLOR,URINE YELLOW (Yellow); GLUCOSE, URINE NEGATIVE (Neg); KETONES,URINE NEGATIVE (Neg); LEUKOCYTE ESTERASE ,URINE NEGATIVE (Neg); NITRITES, URINE NEGATIVE (Neg); OCCULT BLOOD,URINE SMALL (Neg); PH,URINE 7.5 (4.8-8.0); PROTEIN,URINE TRACE mg/dl (Neg)
[2019-08-19 14:41] LABS: UA COLLECTION TYPE FOLEY CATH
[2019-08-19 14:45] LABS: SQUAMOUS EPITHELIAL CELL,UR FEW /LPF (FEW)
[2019-08-19 14:46] LABS: BACTERIA,URINE 1+ /HPF (Neg); MUCUS STRANDS FEW /LPF (Neg)
[2019-08-19 14:48] LABS: TRANSITIONAL EPI CELLS,URINE FEW /HPF
[2019-08-19 14:54] LABS: YEAST MANY /HPF (NEGATIVE)
[2019-08-19 15:05] LABS: ABG BASE EXCESS 16.6 mmol/L (-2.0-3.0); ABG HCO3 41.6 mmol/L (22.0-26.0); ABG OXYGEN SATURATION 82.9 % (95-98); ABG PCO2 (T) 50.7 mmHg (35.0-45.0); ABG PH (T) 7.532 (7.350-7.450); ABG PO2 (T) 39.6 mmHg (83-108); ALLEN'S TEST POSITIVE; FCOHb 0.4 % (0.5-1.5); FMetHb 0.3 % (0.3-1.12); FO2Hb 82.3 % (94-100); TOTAL HEMOGLOBIN 12.6 G/dl (12.0-16.0)
[2019-08-19] MEDS ORDERED: normal saline 1000ML IV soln IVB ONE (15:30)
[2019-08-19] MEDS ORDERED: levoFLOXACIN-Levaquin 500mg/D5 100 ML IV ONE (15:30)
--- NOTE | 2019-08-19 16:33 | NUR ---
Willie Nicholas [phone] was told that Kadie was in the midde of wound care and would call me back
[2019-08-19 16:37] VITALS: BP 109/70
--- NOTE | 2019-08-24 15:58 | NUR ---
PT. TRANSFERED TO [facility]. CALLED AND TALKED TO HER CHARGE NURSE TOLD HER THAT THE PT. HAD GROWN YEAST IN HER URINE CULTURE. TOLD HER WE WERE GOING TO CALL IN AN RX FOR DIFLUCAN 150MG PO X 1. SHE TOLD ME SHE WOULD LET THE PHYSICIAN KNOW AND IF HE WANTED IT HE WOULD ORDER IT.
== END 2019-08-19 16:57 | disposition home or self-care (01) ==
LOC: ER 12:45
DX: R40.4 Transient alteration of awareness (principal); E86.0 Dehydration; N39.0 Urinary tract infection, site not specified; J96.00 Acute respiratory failure, unspecified whether with hypoxia or hypercapnia; J44.9 Chronic obstructive pulmonary disease, unspecified; F41.9 Anxiety disorder, unspecified; F32.9 Major depressive disorder, single episode, unspecified; Z88.0 Allergy status to penicillin; Z88.8 Allergy status to other drugs, medicaments and biological substances; Z79.01 Long term (current) use of anticoagulants; Z79.899 Other long term (current) drug therapy
CPT/HCPCS: 36415; 36600; 70450; 71045; 80053; 81001; 82803; 83605; 83880; 85018; 85025; 87040; 87088; 93005; 94640; 96365; 99285; J1956; J7030; 94760

== ENCOUNTER 2019-12-02 16:20 | Emergency (ER) | payer MEDICARE, BC ==
[~2019-12-02] VITALS: Ht 162.6 cm; Wt 83.6 kg
[2019-12-02] MEDS ORDERED: ipratropium/albuterol 3ml nebule NEB ONE (16:45)
[2019-12-02] MEDS ORDERED: predniSONE 20 mg tablet PO ONE (16:45)
--- NOTE | 2019-12-02 17:00 | NUR ---
willie OSCAR with [facility] [phone]
[2019-12-02 17:30] LABS: BASOPHILS % (AUTO) 0.4 % (0-1); EOSINOPHILS # (AUTO) 0.2 X10'3 (0-0.9); EOSINOPHILS % (AUTO) 2.9 % (0-6); HEMATOCRIT 37.8 % (35.0-45.0); HEMOGLOBIN 11.9 g/dl (12.0-16.0); LYMPHOCYTES # (AUTO) 0.4 X10'3 (1.1-4.8); LYMPHOCYTES % (AUTO) 5.8 % (21-51); MEAN CORPUSCULAR HEMOGLOBIN 26.2 PG (27.0-31.0); MEAN CORPUSCULAR HGB CONC 31.5 g/dL (33.0-36.5); MEAN CORPUSCULAR VOLUME 83.3 FL (78-98); MEAN PLATELET VOLUME 8.5 FL (7.4-10.4); MONOCYTES # (AUTO) 0.5 X10'3 (0-0.9); MONOCYTES % (AUTO) 6.9 % (2-12); NEUTROPHILS # (AUTO) 5.6 X10'3 (1.8-7.7); PLATELET COUNT 208 X10'3 (140-440); RED BLOOD COUNT 4.53 X10'6 (4.20-5.60); RED CELL DISTRIBUTION WIDTH 16.7 % (11.5-14.5); WHITE BLOOD COUNT 6.7 X10'3 (4.5-11.0)
[2019-12-02 17:48] LABS: ALANINE AMINOTRANSFERASE 14 U/L (12-78); ALBUMIN 2.9 G/DL (3.4-5.0); ALBUMIN/GLOBULIN RATIO 0.7 (1.1-1.5); ALKALINE PHOSPHATASE 93 IU/L (46-116); ANION GAP 6 (8-16); ASPARTATE AMINO TRANSFERASE 15 U/L (10-37); BILIRUBIN,TOTAL 0.5 MG/DL (0.1-1.0); BLOOD UREA NITROGEN 23 MG/DL (7-18); CALCIUM 9.4 MG/DL (8.5-10.1); CHLORIDE 106 MMOL/L (99-107); CREATININE 1.15 MG/DL (0.40-0.90); GLUCOSE 117 MG/DL (70-104); POTASSIUM 4.1 MMOL/L (3.5-5.1); SODIUM 144 MMOL/L (135-145); TOTAL CARBON DIOXIDE 32.1 MMOL/L (24-32); TOTAL PROTEIN 7.1 G/DL (6.4-8.2); eGFR 47 ML/MIN
[2019-12-02 18:38] VITALS: BP 122/55
[2019-12-02 18:53] LABS: CLARITY,URINE CLEAR (Clear); COLOR,URINE YELLOW (Yellow); GLUCOSE, URINE NEGATIVE (Neg); KETONES,URINE NEGATIVE (Neg); LEUKOCYTE ESTERASE ,URINE TRACE (Neg); NITRITES, URINE NEGATIVE (Neg); OCCULT BLOOD,URINE MODERATE (Neg); PH,URINE 5.5 (4.8-8.0); PROTEIN,URINE NEGATIVE (Neg); UROBILINOGEN,URINE 0.2 E.U/dL (0.2-1.0)
[2019-12-02 18:55] LABS: UA COLLECTION TYPE CLN CATCH MIDSTREAM
[2019-12-02 18:58] LABS: BACTERIA,URINE 3+ /HPF (Neg); RBC,URINE 0-2 /HPF (0-2); SQUAMOUS EPITHELIAL CELL,UR FEW /LPF (FEW); WBC,URINE 20-30 /HPF (0-4)
[2019-12-02 19:15] LABS: ABG BASE EXCESS 4.8 mmol/L (-2.0-2.0); ABG HCO3 30.3 mmol/L (22.0-26.0); ABG OXYGEN SATURATION 97.2 % (94-97); ABG PCO2 (T) 49.2 mmHg (32.0-45.0); ABG PO2 (T) 94.5 mmHg (75.0-100.0); ALLEN'S TEST POSITIVE; FCOHb 0.9 % (0.0-3.9); FLOW 4 L/min; FMetHb 0.1 % (0.0-1.5); FO2Hb 96.2 % (94-97); PATIENT TEMPERATURE 37.3; TOTAL HEMOGLOBIN 12.4 G/dl (12.0-16.0)
== END 2019-12-02 19:57 | disposition home or self-care (01) ==
LOC: ER 16:20
DX: R06.02 Shortness of breath (principal); Z20.828 Contact with and (suspected) exposure to other viral communicable diseases; J44.9 Chronic obstructive pulmonary disease, unspecified; F41.9 Anxiety disorder, unspecified; F32.9 Major depressive disorder, single episode, unspecified; Z95.0 Presence of cardiac pacemaker; Z88.0 Allergy status to penicillin; Z88.2 Allergy status to sulfonamides; Z88.8 Allergy status to other drugs, medicaments and biological substances; Z91.018 Allergy to other foods; Z79.899 Other long term (current) drug therapy
CPT/HCPCS: 36415; 36600; 71045; 80053; 81001; 82803; 83605; 83880; 84145; 84484; 85018; 85025; 87040; 87088; 87635; 93005; 94640; 99285; C9803; J7512; 94760

== ENCOUNTER 2022-01-16 06:30 | Day surgery (SDC) | payer MEDICARE, BC ==
[~2022-01-16] VITALS: Ht 157.5 cm; Wt 81.2 kg
[~2022-01-16 06:30] MED LIST changes: +POTA-205 PO; -POTA10TA36 PO
[2022-01-16 07:00] VITALS: BP 106/62
[2022-01-16] MEDS ORDERED: MIDAZolam 1mg/ml 10ml vial IV ONE (07:15)
[2022-01-16] MEDS ORDERED: normal saline 1000ml 1,000 ML IV SCH (07:15)
[2022-01-16] MEDS ORDERED: fentaNYL/PF 50MCG/1 ML 2ML syringe IV ONE (07:15)
[2022-01-16] MEDS ORDERED: LAN0.125T PO (07:34)
[2022-01-16] MEDS ORDERED: ARFO15VI NEB (07:34)
[2022-01-16] MEDS ORDERED: APIX5TAB3 PO (07:34)
[2022-01-16] MEDS ORDERED: MAGN250C PO (07:34)
[2022-01-16] MEDS ORDERED: BUME1TAB9 PO (07:34)
--- NOTE | 2022-01-16 07:45 | NUR ---
Called Dr. Escamilla regarding patient's EKG. And EKG sent to him. No procedure required. Case cancelled. Notified patient and her .
--- NOTE | 2022-01-16 08:10 | NUR ---
No procedure performed. Patient dressed and taken out to 's car in w/c. All belongings with patient on d/c.
== END 2022-01-16 08:10 | disposition home or self-care (01) ==
LOC: SSTAY O 06:30
PROVIDERS: ATTEND Internal Medicine Cardiovascular Disease
DX: I47.1 Supraventricular tachycardia (principal); Z53.8 Procedure and treatment not carried out for other reasons
CPT/HCPCS: 93005; A4620; J7030